=== PATIENT | male | born 1975 | race Caucasian/White ===

== ENCOUNTER → 2020-08-12 14:46 | Outpatient (CLI) | payer BC, SELFPAY ==
[2020-08-13 08:46] LABS: Basophils # 0.1 K/mm3 (0-0.2); Eosinophils # 0.4 K/mm3 (0.0-0.4); Eosinophils % 4.9 % (0.1-12.0); Hematocrit 39.3 % (42.0-52.0); Hemoglobin 11.7 g/dL (14.1-18.0); Lymphocytes # 1.4 K/mm3 (0.7-4.5); Lymphocytes % 15.7 % (10-50); Mean Corpuscular HGB Conc 29.7 g/dL (31.8-35.4); Mean Corpuscular Hemoglobin 28.3 pg (27.0-31.2); Mean Corpuscular Volume 95.4 fl (80-94); Mean Platelet Volume 8.8 fl (7.4-10.4); Monocytes # 0.3 K/mm3 (0.1-1.0); Monocytes % 3.3 % (1.7-9.3); Neutrophils # 6.6 K/mm3 (1.8-7.8); Neutrophils % 75.1 % (37.0-80.0); Platelet Count 284 K/mm3 (142-424); Red Blood Count 4.12 M/mm3 (4.60-6.20); Red Cell Distribution Width 16.3 % (11.5-17.5); White Blood Count 8.8 K/mm3 (4.8-10.8)
[2020-08-13 08:56] LABS: Chloride 103 mmol/L (98-107); Sodium 139 mmol/L (136-145)
[2020-08-13 08:57] LABS: Potassium 3.3 mmoL/L (3.5-5.1)
[2020-08-13 08:59] LABS: Alanine Aminotransferase 34 U/L (12-78); Albumin Level 3.7 g/dl (3.5-5.0); Alkaline Phosphatase 64 U/L (38-126); Anion Gap 13.3 mEq/L (5-15); Aspartate Amino Transferase 37 U/L (17-59); Bilirubin,Total 0.4 mg/dl (0.2-1.3); Blood Urea Nitrogen 13 mg/dl (9-20); Calcium 8.5 mg/dl (8.4-10.2); Carbon Dioxide 26 mmol/L (22.0-30.0); Cholesterol 164 mg/dl (140-200); Estimated Glomerular Filt Rate 41 ml/min (>60); GFR (African American) 50 ML/MIN (>60); Globulin 3.7 g/dL (1.3-3.2); Total Protein,Serum 7.4 g/dl (6.3-8.2); Triglycerides 106 mg/dl (30-150); VLDL Cholesterol 21 mg/dL (0-40)
[2020-08-13 09:00] LABS: Chol/HDL Ratio 2.4 (1-3.5); HDL Cholesterol 67 mg/dl (40-60)
[2020-08-13 09:11] LABS: Direct LDL Cholesterol 63.97 mg/dL (100-129)
[2020-08-13 09:14] LABS: Glucose 437 mg/dl (74-100)
[2020-08-13 09:30] LABS: Thyroid Stimulating Hormone 2.62 uIU/mL (0.465-4.68)
[2020-08-13 10:27] LABS: Hemoglobin A1C 7.7 % (4.0-6.0)
== END ==
PROVIDERS: Visit Provider Family Medicine
DX: R31.9 Hematuria, unspecified (principal); R40.20 Unspecified coma
CPT/HCPCS: 80053; 80061; 83036; 84443; 85025

== ENCOUNTER → 2020-10-14 17:57 | Outpatient (CLI) | payer BC, SELFPAY ==
[2020-10-14 18:26] LABS: Basophils % 0.3 % (0.1-2.0); Eosinophils # 0.1 K/mm3 (0.0-0.4); Eosinophils % 1.1 % (0.1-12.0); Hematocrit 34.4 % (42.0-52.0); Hemoglobin 11.3 g/dL (14.1-18.0); Lymphocytes # 1.5 K/mm3 (0.7-4.5); Lymphocytes % 15.3 % (10-50); Mean Corpuscular HGB Conc 32.9 g/dL (31.8-35.4); Mean Corpuscular Hemoglobin 28.4 pg (27.0-31.2); Mean Corpuscular Volume 86.6 fl (80-94); Mean Platelet Volume 7.3 fl (7.4-10.4); Monocytes # 0.3 K/mm3 (0.1-1.0); Neutrophils # 7.8 K/mm3 (1.8-7.8); Neutrophils % 80.3 % (37.0-80.0); Platelet Count 274 K/mm3 (142-424); Red Blood Count 3.97 M/mm3 (4.60-6.20); Red Cell Distribution Width 14.5 % (11.5-17.5); White Blood Count 9.8 K/mm3 (4.8-10.8)
[2020-10-14 18:36] LABS: Alanine Aminotransferase 35 U/L (12-78); Albumin Level 4.2 g/dl (3.5-5.0); Albumin/Globulin Ratio 1.4 (1.1-1.8); Alkaline Phosphatase 60 U/L (38-126); Anion Gap 16.1 mEq/L (5-15); Aspartate Amino Transferase 35 U/L (17-59); Bilirubin,Total 0.5 mg/dl (0.2-1.3); Blood Urea Nitrogen 19 mg/dl (9-20); Carbon Dioxide 23 mmol/L (22.0-30.0); Chloride 97 mmol/L (98-107); Estimated Glomerular Filt Rate 38 ml/min (>60); GFR (African American) 46 ML/MIN (>60); Globulin 3.1 g/dL (1.3-3.2); Potassium 4.1 mmoL/L (3.5-5.1); Sodium 132 mmol/L (136-145); Total Protein,Serum 7.3 g/dl (6.3-8.2)
[2020-10-14 18:51] LABS: T4 (Thyroxine) 12.9 ug/dl (5.53-11.0)
[2020-10-14 18:58] LABS: Glucose 425 mg/dl (74-100); Lipase < 10 U/L (23-300)
[2020-10-14 19:04] LABS: Thyroid Stimulating Hormone 1.42 uIU/mL (0.465-4.68)
[2020-10-14 19:23] LABS: Hemoglobin A1C 10.8 % (4.0-6.0)
== END ==
PROVIDERS: Visit Provider Family Medicine
DX: R10.9 Unspecified abdominal pain (principal); E11.9 Type 2 diabetes mellitus without complications; D64.9 Anemia, unspecified; Z79.4 Long term (current) use of insulin
CPT/HCPCS: 80053; 83036; 83690; 84436; 84443; 85025

== ENCOUNTER 2020-11-08 07:03 | Day surgery (SDC) | payer BC, SELFPAY ==
[2020-11-02 11:27] VITALS: BMI 12.7
[2020-11-08 08:16] VITALS: BP 137/91; PULSE 99; RESP 18; TEMP 36.6; O2SAT 100
[2020-11-08 08:23] LABS: Coronavirus 19 IgG Antibody Negative (Negative); Coronavirus 19 IgM Antibody Negative (Negative)
[2020-11-08 08:56] LABS: Glucose,Random 794 mg/dL (74-100)
--- NOTE | 2020-11-08 09:29 | SUR.PREOP ---
Patient Blood sugar @ 749. Labs drawn and patient taken to ED.
[2020-11-08 09:41] LABS: Acetone, Serum (Rapid) None Detected (None Detect)
[2020-11-08 10:05] LABS: Chloride 99 mmol/L (98-107); Potassium 3.7 mmoL/L (3.5-5.1); Sodium 133 mmol/L (136-145)
[2020-11-08 10:08] LABS: Alanine Aminotransferase 28 U/L (12-78); Albumin Level 3.4 g/dl (3.5-5.0); Albumin/Globulin Ratio 1.4 (1.1-1.8); Alkaline Phosphatase 60 U/L (38-126); Anion Gap 14.7 mEq/L (5-15); Aspartate Amino Transferase 14 U/L (17-59); Bilirubin,Total 0.5 mg/dl (0.2-1.3); Blood Urea Nitrogen 20 mg/dl (9-20); Carbon Dioxide 23 mmol/L (22.0-30.0); Creatinine Clearance Estimated 31 mL/min (50-200); Estimated Glomerular Filt Rate 41 ml/min (>60); GFR (African American) 49 ML/MIN (>60); Globulin 2.4 g/dL (1.3-3.2); Total Protein,Serum 5.8 g/dl (6.3-8.2)
[2020-11-08 10:18] LABS: Glucose 778 mg/dl (74-100)
== END 2020-11-08 09:22 | disposition other institution (70) ==
LOC: OUTP 07:04
PROVIDERS: PCP Family Medicine; Visit Provider Internal Medicine Gastroenterology
PROC: 0DJ08ZZ Inspection of Upper Intestinal Tract, Via Natural or Artificial Opening Endoscopic (ICD-10-PCS; CPT 43235; principal; 2020-11-08 09:30)
DX: Z53.8 Procedure and treatment not carried out for other reasons (principal); R73.9 Hyperglycemia, unspecified
CPT/HCPCS: 36415; 80053; 82009; 82947; 86328; U0003

== ENCOUNTER 2020-11-08 09:35 | Emergency (ER) | payer BC, SELFPAY ==
[2020-11-08 09:36] VITALS: BP 122/86; PULSE 96; RESP 18; TEMP 36.5; O2SAT 99; BMI 12.7
[2020-11-08 09:46] LABS: Basophils % 0.4 % (0.1-2.0); Eosinophils # 0.1 K/mm3 (0.0-0.4); Eosinophils % 0.8 % (0.1-12.0); Hematocrit 30.6 % (42.0-52.0); Hemoglobin 9.4 g/dL (14.1-18.0); Lymphocytes # 0.9 K/mm3 (0.7-4.5); Lymphocytes % 11.7 % (10-50); Mean Corpuscular HGB Conc 30.8 g/dL (31.8-35.4); Mean Corpuscular Hemoglobin 28.6 pg (27.0-31.2); Mean Corpuscular Volume 92.7 fl (80-94); Mean Platelet Volume 7.3 fl (7.4-10.4); Monocytes # 0.2 K/mm3 (0.1-1.0); Monocytes % 2.8 % (1.7-9.3); Neutrophils # 6.6 K/mm3 (1.8-7.8); Neutrophils % 84.3 % (37.0-80.0); Platelet Count 202 K/mm3 (142-424); White Blood Count 7.8 K/mm3 (4.8-10.8)
[2020-11-08 09:47] VITALS: BP 122/86; PULSE 93; RESP 20; O2SAT 100
[2020-11-08 09:59] LABS: VBG Base Excess -2.2 mmol/L (-2.4-2.3); VBG HCO3 24.2 mmol/L (23-30); VBG Oxygen Saturation 88.5 % (50-70); VBG PCO2 50.1 mmol/L (35-51); VBG PO2 53.1 mmol/L (28-40); VBG Total CO2 25.7 mmol/L (23-27)
--- NOTE | 2020-11-08 10:03 | HMH.EDGENADL ---
ED Disposition Clinical Impression: Hyperglycemia without ketosis Disposition: Home, Self-Care Condition on Discharge: Fair Instructions: DI for Hyperglycemia -- Adult Referrals: Ethan Beltran MD [Primary Care Provider] - 11/09/20 1:30 pm - Critical Care Critical Care Time: No Attestation: On 11/08/20, the high probability of a clinically significant, sudden or life threatening deterioration of the following system(s) required my full and direct attention, intervention and personal management. The time I documented below is in addition to time spent performing reported procedures but includes the following listed in this critical care notation. Medical Decision Making - Medical Records Medical records reviewed: Yes: I reviewed the patient's medical records. - Lazaro Inquiry Pt receiving controlled substance: No Vital Signs: 11/08/20 09:36 11/08/20 09:47 Temperature 97.7 F Temperature Source Oral Pulse Rate 93 H Pulse Rate [Right Radial] 96 H Respiratory Rate 18 20 Blood Pressure 122/86 Blood Pressure [Right Arm] 122/86 Blood Pressure Mean [Right Arm] 98 Blood Pressure Source [Right Arm] Automatic Cuff Blood Pressure Position [Right Arm] Sitting 02 Sat by Pulse Oximetry 99 100 Oxygen Delivery Method Room Air - Lab Data Lab Results 11/08/20 09:00: WBC 7.8, RBC 3.30 L, Hgb 9.4 L, Hct 30.6 L, MCV 92.7, MCH 28.6, MCHC 30.8 L, RDW 15.0, Plt Count 202, MPV 7.3 L, Neut % (Auto) 84.3 H, Lymph % (Auto) 11.7, [place] % (Auto) 2.8, Eos % (Auto) 0.8, Baso % (Auto) 0.4, Neut # (Auto) 6.6, Lymph # (Auto) 0.9, [place] # (Auto) 0.2, Eos # (Auto) 0.1, Baso # (Auto) 0.0 11/08/20 09:50: VBG pH 7.30 L, VBG pCO2 50.1, VBG pO2 53.1 H, VBG HCO3 24.2, VBG Total CO2 25.7, VBG O2 Saturation 88.5 H, VBG Base Excess -2.2 Result diagrams: 11/08/20 09:00 Orders (Tests/Meds): ED MEDICATIONS Discontinued Medications Generic Name Dose Route Start Last Admin Trade Name Starr PRN Reason Stop Dose Admin Sodium Chloride 1,000 mls @ 999 mls/hr 11/08/20 09:45 11/08/20 09:47 Sod Chlor 0.9% 1000ml Bag IV 11/08/20 10:45 999 mls/hr .Q1H1M SHERRELL Administration Insulin Human Lispro 10 unit 11/08/20 11:04 Humalog 100 Units/Ml 3ml Vial (Ssi) SQ 11/08/20 11:05 ONCE ONE ORDERS Category Date Time Status Venous Blood Gas Stat RT 11/08/20 09:37 Ordered - Reevaluation(s) Time: 11:12 Reevaluation #1: Patient does have significant hyperglycemia. Slightly lower pH, however no acetone. Gap within normal limits. We did provide multiple fluid boluses as well as insulin. I did explain to the patient that I am significantly concerned given his elevated blood sugar. I told the patient that if he would like to admit in the hospital for further treatment and evaluation. Patient is adamantly refusing this time. He is becoming hostile with the staff. He states that there is no chance he is staying in the hospital. I did explain to the patient that refusing to stay could result in significant poor medical outcomes including . The patient is alert and has full decision-making capability. He states that he understands this. He states he is leaving the hospital right now. I did call his primary care physician and arrange for emergent follow-up tomorrow to address his blood sugar. The patient has a appointment scheduled at 1330. Patient was notified about this. He was given strict return precautions. Verbalized understanding. Medical Decision Narrative: 45-year-old male presented to the emergency department with elevated blood sugar. Concern for DKA. Work-up initiated. Patient provided supplemental fluids. General Adult HPI - General Chief complaint: Hyper/Hypoglycemia Stated complaint: elevated glucose Time Seen by Provider: 11/08/20 10:03 Mode of Arrival: Carried Limitations: No Limitations Description of Symptoms (Recalled from ER Triage Doc. by RN): Pt was in pre-op today for and EGD and co
--- NOTE | 2020-11-08 11:09 | PC.NURSE ---
MAURICIO MONTOYA speaking with Dr. Carmona
--- NOTE | 2020-11-08 11:44 | PC.NURSE ---
DISCHARGED PATIENT VIA WHEELCHAIR. PT REPORTED HE HAD A RIDE OUT FRONT. AFTER WAITING 10 MINUTES FOR RIDE TO SHOW UP, PATIENT BECAME FRUSTRATED AND STATED HE WILL WAIT IN THE LOBBY. PATIENT IS AMBULATORY AND HAS A CELLPHONE
[2020-11-08 12:16] VITALS: BP 129/64; PULSE 78; RESP 18; TEMP 36.9; O2SAT 97
[2020-11-09 13:15] LABS: C-Peptide 1.7 ng/mL (1.1-4.4)
== END 2020-11-08 11:33 | disposition home or self-care (01) ==
PROVIDERS: Emergency Provider Emergency Medicine; PCP Family Medicine
DX: E11.65 Type 2 diabetes mellitus with hyperglycemia (principal); Z79.4 Long term (current) use of insulin; Z79.84 Long term (current) use of oral hypoglycemic drugs; D53.9 Nutritional anemia, unspecified; F41.9 Anxiety disorder, unspecified; Z88.0 Allergy status to penicillin
CPT/HCPCS: 82803; 84681; 85025; 99282

== ENCOUNTER 2020-11-12 14:09 | Observation (INO) | payer BC, SELFPAY ==
[2020-11-12] VITALS (11 sets, daily range): BP systolic 63–129; BP diastolic 48–76; PULSE 66–106; RESP 16–20; TEMP 36.6–36.8; O2SAT 92–100; BMI 13.9
--- NOTE | 2020-11-12 14:20 | PC.NURSE ---
Pt arrived to the floor at this time.
--- NOTE | 2020-11-12 14:54 | XR_ITS ---
PROCEDURE: XR CHEST PORTABLE CLINICAL HISTORY: cough COMPARISON: No exams were available for comparison FINDINGS: The cardiomediastinal silhouette and pulmonary vascularity are within normal limits. The lungs are clear without infiltrates, suspicious nodules, or pleural effusions. No acute bony abnormalities. Gas-filled bowel loops are present in the upper abdomen. IMPRESSION: No acute findings. Dictated by: Elliott Person MD 11/12/2020 17:39 Elliott Person MD in [place] 11/12/2020 17:39
--- NOTE | 2020-11-12 14:54 | CT_ITS ---
PROCEDURE: CT ABDOMEN PELVIS WO CON CLINICAL INDICATION: abd pain Epigastric pain, chronic pancreatitis COMPARISON: No exams were available for comparison TECHNIQUE: Axial images obtained with sagittal and coronal reformats. All CT scans at the facility use one or more dose reduction, viz: automated exposure control, ma/kV adjustment per patient size (including targeted exams where dose is matched to indication, i.e. head), or iterative reconstruction technique. FINDINGS: LOWER THORAX: COPD in the lung bases. Coronary artery calcifications. ABDOMEN & PELVIS: Evaluation of the abdomen and pelvis is extremely limited without IV and oral contrast and due to patient's lack of body fat. The gallbladder is distended. No radiopaque gallstones are apparent. The spleen, liver, and adrenal glands have an unremarkable unenhanced appearance. No obvious renal calculi or hydronephrosis. There is diffuse coarse calcification of the pancreas consistent with chronic pancreatitis. There gas-filled loops of small and large bowel. The appendix is not identified. There is a mild amount of liquid appearing stool within the colon which may be related to diarrhea disease or colitis. Multiple unopacified bowel loops in the abdomen or pelvis which could obscure or mimic pathology. If symptoms persist, consider repeat exam with IV and oral contrast.. There are fluid-filled loops of small bowel which blend imperceptibly together due to lack of IV and oral contrast and lack of body fat. There does appear to be hyperdense ascites at least in the left pericolic gutter. Some of this could be related to unopacified bowel. There are scattered small pockets of gas in the abdomen and pelvis which may be intraluminal however that is not definite. Would strongly recommend repeating exam with both IV and oral contrast for better delineation of the bowel loops. There are no previous exams available for comparison. There is degenerative disc disease at L4-5 with endplate sclerotic changes and a Schmorl's node along the inferior endplate of L4. There is diffuse arterial calcification. The urinary bladder wall is thickened with mild distention of the urinary bladder. IMPRESSION: 1. Exam is very limited due to lack of IV and oral contrast and sparsely of patient's body fat. There are multiple unopacified small bowel loops which blend imperceptibly together. There also scattered pockets of air in the abdomen and pelvis which may be intraluminal however, that is not definitive. Would strongly repeating exam with both IV and oral contrast for better bowel loop opacification and delineation of possible small bowel or large bowel pathology. 2. Air and liquid stool appearance of the large bowel suggesting diarrhea disease or colitis. 3. Chronic pancreatitis. 4. Hyperdense ascites. This is nonspecific and could be related to underlying infection/inflammation or even hemorrhage. 5. Thickening of the urinary bladder wall which could be due to underlying cystitis or chronic bladder outlet obstruction. Dictated by: Elliott Person MD 11/12/2020 16:39 Elliott Person MD in [place] 11/12/2020 16:39
--- NOTE | 2020-11-12 14:57 | HMH.HP ---
*Admission Date: 11/12/20 *Chief complaint: near syncope *History of present illness: 45 yr old male presented to pcp office today with c/o of abd pain, diarrhea, near syncope and decrease intake for 4-5 days. pt states every time he stands he becomes dizzy and feels he is going to pass out. Pt states he was scheduled for a colonoscopy and took the prep but since then he has had diarrhea and decrease intake. Pt states his colonoscopy was cancelled due to hyperglycemia. While in office pt glucose was 473. Pt was pale, lethargic with increase hr. Pt sent to hospital for admission. [facility] History I have reviewed the patient's past medical history: Yes Medical History: Reports:: Anxiety, Depression, Diabetes Mellitus Type 2 Denies:: Cancer, Diabetes Mellitus Type 1, Internal Pacemaker, MRSA, Seizures *Have you ever received a pneumonia vaccine?: No *Have you received a flu vaccine this season?: No Other Surgeries: Yes: Colonoscopy. No: Pacemaker Amputation: No Fractures: No - *Social History Smoking Status: Never smoker Alcohol Intake: former Alcohol Intake Frequency:: holidays/special occasions only Substance Use Type: heroin *Occupational Status:: unemployed Housing: apartment Household Members: none *Travel in the last 8 weeks: None - Psychiatric History Pschychiatric History:: Reports:: Anxiety, Depression Family Hx:: No significant family history Review of Systems - Review of Systems Review of systems:: pertinent systems reviewed and negative unless documented below - Constitutional Reports fatigue, Reports lack of energy, Reports malaise, Denies body ache(s), Denies fever(s) - Eyes Denies change in vision - ENT Denies change in voice - *Cardiovascular Denies chest pain with activity, Denies shortness of breath - *Respiratory Denies chest congestion - *Gastrointestinal Reports abdominal pain, Reports cramping, Reports loose stools, Reports nausea - *Genitourinary Denies urinary frequency - *Musculoskeletal Denies joint pain - Integumentary/Breasts Denies rash - *Neurologic Reports dizziness, Reports dizziness, Reports weakness - Psychiatric Denies anxiety - Endocrine Denies increased thirst - Hematologic/Lymphatic Denies easy bruising - Allergic/Immunologic Denies itchy eyes Meds Home Medications Medication Instructions Recorded Confirmed Type gabapentin 800 mg tablet 800 mg PO TID PRN #90 tab 10/14/20 11/12/20 Rx hydrocodone 5 mg-acetaminophen 325 1 tab PO BID PRN #14 tab 10/14/20 11/12/20 Rx mg tablet Insulin Glargine,Hum.rec.anlog 15 unit SQ DAILY 11/02/20 11/12/20 History [[place] Polkpen U-100] Insulin Lispro [Humalog] 1 unit SQ TID 11/02/20 11/12/20 History Omeprazole 40 mg PO DAILY 11/02/20 11/12/20 History Quetiapine Fumarate [Seroquel] 200 mg PO HS 11/02/20 11/12/20 History methIMAzole [Methimazole] 5 mg PO DAILY 11/02/20 11/12/20 History Allergies Allergy/AdvReac Type Severity Reaction Status Date / Time Penicillins Allergy Severe Hives Verified 11/02/20 11:06 Exam Vital signs and Labs for Last 24 Hours: Temp Pulse Resp BP Pulse Ox 98.2 F 66 20 115/68 100 11/12/20 14:13 11/12/20 14:13 11/12/20 14:13 11/12/20 14:13 11/12/20 14:13 I & O for Last 24 hours: Intake & Output 11/10/20 11/11/20 11/12/20 11/13/20 11:59 11:59 11:59 11:59 Weight 103 lb 1 oz - Constitutional mild distress, thin - *Routine HEENT Exam Head: Present: normocephalic Eye: Present: PERRL ENT: Present: mucous membranes moist - *Routine Neck Exam Present: supple. Absent: lymphadenopathy - *Routine Respiratory Exam Present: CTA bilaterally - *Routine Cardiovascular Exam Present: tachycardia - *Routine Abdominal Exam Present: soft, normoactive bowel sounds, tenderness. Absent: firm, rigid - *Routine Extremities Exam Present: normal capillary refill. Absent: cyanosis, clubbing, edema - *Routine Skin Exam Present: warm. Absent: r
[2020-11-12 15:04] LABS: Basophils % 0.3 % (0.1-2.0); Eosinophils # 0.1 K/mm3 (0.0-0.4); Eosinophils % 0.7 % (0.1-12.0); Hematocrit 29.8 % (42.0-52.0); Hemoglobin 9.5 g/dL (14.1-18.0); Lymphocytes # 1.4 K/mm3 (0.7-4.5); Lymphocytes % 11.6 % (10-50); Mean Corpuscular HGB Conc 31.8 g/dL (31.8-35.4); Mean Corpuscular Hemoglobin 28.9 pg (27.0-31.2); Mean Corpuscular Volume 90.8 fl (80-94); Mean Platelet Volume 7.6 fl (7.4-10.4); Monocytes # 0.3 K/mm3 (0.1-1.0); Monocytes % 2.6 % (1.7-9.3); Neutrophils # 10.5 K/mm3 (1.8-7.8); Neutrophils % 84.9 % (37.0-80.0); Platelet Count 233 K/mm3 (142-424); Red Blood Count 3.28 M/mm3 (4.60-6.20); Red Cell Distribution Width 14.6 % (11.5-17.5); White Blood Count 12.4 K/mm3 (4.8-10.8)
[2020-11-12 15:22] LABS: Chloride 97 mmol/L (98-107); Potassium 3.7 mmoL/L (3.5-5.1); Sodium 127 mmol/L (136-145)
[2020-11-12 15:25] LABS: Alanine Aminotransferase 49 U/L (12-78); Albumin Level 3.3 g/dl (3.5-5.0); Albumin/Globulin Ratio 1.3 (1.1-1.8); Alkaline Phosphatase 69 U/L (38-126); Anion Gap 13.7 mEq/L (5-15); Aspartate Amino Transferase 101 U/L (17-59); Bilirubin,Total 0.5 mg/dl (0.2-1.3); Blood Urea Nitrogen 13 mg/dl (9-20); Calcium 7.9 mg/dl (8.4-10.2); Carbon Dioxide 20 mmol/L (22.0-30.0); Chol/HDL Ratio 2.5 (1-3.5); Cholesterol 92 mg/dl (140-200); Creatinine Clearance Estimated 36 mL/min (50-200); Estimated Glomerular Filt Rate 44 ml/min (>60); GFR (African American) 53 ML/MIN (>60); Globulin 2.6 g/dL (1.3-3.2); HDL Cholesterol 37 mg/dl (40-60); Total Protein,Serum 5.9 g/dl (6.3-8.2); Triglycerides 92 mg/dl (30-150); VLDL Cholesterol 18 mg/dL (0-40)
--- NOTE | 2020-11-12 15:26 | PC.NURSE ---
pt wishes to be a DNR. Reviewed DNR status. DNR form signed and placed on chart. Ordered entered.
[2020-11-12 15:30] LABS: Lactic Acid 2.5 mmol/L (0.7-2.1)
[2020-11-12 15:30] LABS: Acetone, Serum (Rapid) None Detected (None Detect)
[2020-11-12 15:36] LABS: Direct LDL Cholesterol 31.24 mg/dL (100-129)
[2020-11-12 15:38] LABS: Glucose 661 mg/dl (74-100)
--- NOTE | 2020-11-12 15:39 | PC.NURSE ---
notified Dr. Beltran that glucose is 661
--- NOTE | 2020-11-12 15:47 | PC.NURSE ---
Received new orders from Dr. Beltran for the following: give 30 units Novolog insulin subcut NOW and to utilize high intensity SSI for ACHS checks. Also reviewed new lab results with Dr. Beltran: lactate 2.5, Cr 1.70, no acetone dectected, and WBC 12.4. No new orders received after discussing new lab results.
--- NOTE | 2020-11-12 16:13 | HMH.PHAVTE ---
[facility] Pharmacy VTE Monitoring - Patient Demographics Admission date: 11/12/20 Report Date: 11/12/20 Time: 16:13 Allergies/Adverse Reactions: Patient Allergies Penicillins Allergy (Severe, Verified 11/02/20 11:06) Hives Height: 1.83 m Weight: 46.748 kg - VTE Risk Labs: VTE Related Lab Results Hgb 9.5 g/dL (14.1-18.0) L 11/12/20 14:50 Hct 29.8 % (42.0-52.0) L 11/12/20 14:50 Plt Count 233 K/mm3 (142-424) 11/12/20 14:50 BUN 13 mg/dl (9-20) 11/12/20 14:50 Creatinine 1.70 mg/dl (0.66-1.25) H 11/12/20 14:50 Clinical Trial Participant: No - Prophylaxis VTE Prophylaxis Ordered?: Yes Types of VTE Prophylaxis: TEDS Knee High
--- NOTE | 2020-11-12 16:58 | PC.NURSE ---
Notified Dr. Beltran that FSBS is 537. No new orders @ this time as 30 units Novolog subcut was just given aprox 30min ago.
[2020-11-12 18:10] LABS: Glucose,Random 499 mg/dL (74-100)
--- NOTE | 2020-11-12 18:39 | PC.NURSE ---
paged Dr. Del Rosario @ [phone] regarding the following: glucose 499, BP 72/[address] Del Rosario ordered the following: TSH, Free T3, free T4, 1L NS bolus now, glargine 25units QHS, 30units Lispro NOW, and to restart DM low fat diet. Orders entered and/or faxed to [facility] pharmacy.
[2020-11-12 19:14] LABS: Free T4 (Free Thyroxine) 1.33 ng/dl (0.78-2.19)
[2020-11-12 19:17] LABS: Reflex Lactic Add Lactic Reflex
[2020-11-12 19:29] LABS: Thyroid Stimulating Hormone 1.27 uIU/mL (0.465-4.68)
[2020-11-12 19:58] LABS: Lactic Acid Follow Up (RFLX 1) 2.8 mmol/L (0.7-2.1)
[2020-11-12 20:39] LABS: Adenovirus F 40/41, stool Not Detected (NotDetected); Astrovirus Not Detected (NotDetected); Campylobacter Not Detected (NotDetected); Clostridium Difficile A/B, PCR Not Detected (NotDetected); Cryptosporidium Not Detected (NotDetected); Cyclospora Cayetanesis Not Detected (NotDetected); Entamoeba histolytica Not Detected (NotDetected); Enteroaggregative E coli Not Detected (NotDetected); Enteropathogenic E coli Not Detected (NotDetected); Enterotoxigenic E coli Not Detected (NotDetected); Giardia lamblia Not Detected (NotDetected); Norovirus Not Detected (NotDetected); Plesimonas Shigalloides, PCR Not Detected (NotDetected); Rotavirus A Not Detected (NotDetected); Salmonella, PCR Not Detected (NotDetected); Sapovirus Not Detected (NotDetected); Shiga-like toxin E coli Not Detected (NotDetected); Shigella Enterovasive E coli Not Detected (NotDetected); Vibrio Cholerae Not Detected (NotDetected); Vibrio, PCR Not Detected (NotDetected); Yersinia Entercolitica, PCR Not Detected (NotDetected)
[2020-11-12 20:48] LABS: Occult Blood,Stool Negative (Negative)
[2020-11-12 21:23] LABS: Microscopic, Urine URINE MICROSCOPIC (MICROSCOPIC)
[2020-11-12 21:28] LABS: Appearance,Urine SL CLOUDY (Clear); Bilirubin,Urine Negative (Negative); Blood, Urine TRACE-I (Negative); Color,Urine YELLOW (Yellow); Glucose,Urine (UA) 3+ (Negative); Ketones,Urine Negative (Negative); Leukocyte Esterase,Urine 1+ (Negative); Nitrate,Urine Negative (Negative); PH,Urine 5.5 (5.0-8.5); Protein,Urine Negative (Negative); Urobilinogen,Urine 0.2 EU/dl (0.2)
[2020-11-12 21:33] LABS: WBC,Urine 50-100 #/hpf (0-3); Yeast,Urine 2+ /lpf
[2020-11-12 21:36] LABS: Reflex Lactic (2 hrs) Add Lactic Reflex
[2020-11-12 21:48] LABS: Lactic Acid Follow up (RFLX 2) 2.2 mmol/L (0.7-2.1)
[2020-11-12 22:09] LABS: Glucose,Random 51 mg/dL (74-100)
[2020-11-12 22:43] LABS: POC Glucose,Bedside 537 (70-110)
[2020-11-12 22:43] LABS: POC Glucose,Bedside 422 (70-110)
[2020-11-12 22:44] LABS: POC Glucose,Bedside 91 (70-110)
--- NOTE | 2020-11-12 22:50 | PC.NURSE ---
Stool sample and urine was sent to lab. He ambulated to the bathroom with assist x1 and reported that he felt lightheaded and had to be helped with assist x3 back to bed. He received a fluid bolus. His glucose was 91 at bedtime. He called out later stating that he felt like his glucose was low. RRLO on glucometer. He was awake and alert. Given juice and carbohydrate and 1/2amp of D50. Glucose randomly checked after approx. 1 hour because he stated he felt funny and was noted to be 477. At this time he decided he wanted to take his 15units of Lantus that he had earlier refused.
[2020-11-13] VITALS: BP 93/61; PULSE 90; PULSE 92; RESP 14; TEMP 36.6; O2SAT 100
[2020-11-13 03:39] LABS: Barbiturates Screen,Urine Negative ng/ml (<200)
[2020-11-13 03:40] LABS: Benzodiazepines Screen,Urine Negative ng/ml (<200)
[2020-11-13 03:41] LABS: Cocaine Screen,Urine Negative ng/ml (<300); Methadone Screen,Urine Negative ng/ml (<300)
[2020-11-13 03:42] LABS: Cannabinoid Screen,Urine Negative ng/ml (<50)
[2020-11-13 03:43] LABS: Opiate Screen,Urine Negative ng/ml (<300); Phencyclidine Screen,Urine Negative ng/ml (<25)
[2020-11-13 03:45] LABS: Amphetamine/Metha Screen,Urine Positive ng/ml (<1000)
[2020-11-13 04:00] VITALS: BP 114/73; PULSE 86; PULSE 90; RESP 20; TEMP 36.4; O2SAT 100
[2020-11-13 05:15] VITALS: BMI 13.6
[2020-11-13 05:26] LABS: Anion Gap 15.8 mEq/L (5-15); Blood Urea Nitrogen 14 mg/dl (9-20); Carbon Dioxide 19 mmol/L (22.0-30.0); Chloride 104 mmol/L (98-107); Creatinine Clearance Estimated 37 mL/min (50-200); Estimated Glomerular Filt Rate 47 ml/min (>60); GFR (African American) 57 ML/MIN (>60); Potassium 3.8 mmoL/L (3.5-5.1); Sodium 135 mmol/L (136-145)
[2020-11-13 05:47] LABS: Glucose 48 mg/dl (74-100)
[2020-11-13 06:41] LABS: POC Glucose,Bedside 51 (70-110)
[2020-11-13 07:56] VITALS: TEMP 36.7
[2020-11-13 08:00] VITALS: BP 97/65; PULSE 80; PULSE 90; RESP 12; O2SAT 100
[2020-11-13 11:15] VITALS: BP 103/70; PULSE 84; RESP 18; TEMP 36.6; O2SAT 100
--- NOTE | 2020-11-13 12:16 | HMH.DCSUM ---
General - General Admission date:: 11/12/20 Discharge date: 11/13/20 HPI HPI: 45 yr old male presented to pcp office today with c/o of abd pain, diarrhea, near syncope and decrease intake for 4-5 days. pt states every time he stands he becomes dizzy and feels he is going to pass out. Pt states he was scheduled for a colonoscopy and took the prep but since then he has had diarrhea and decrease intake. Pt states his colonoscopy was cancelled due to hyperglycemia. While in office pt glucose was 473. Pt was pale, lethargic with increase hr. Pt sent to hospital for admission. Hospital Course Hospital Course: Patient was admitted for observation and hydration. He felt markedly better. No further diarrhea, no overt evidence of GI blood loss. Blood glucose was markedly labile, from the 420s to the 50s. He was eating well without problems. Has no abdominal pain, shortness of breath or chest pain. Has a history of anemia requiring transfusion. He was being set up for a colonoscopy and did not tolerate the prep. There was 9.5, his creatinine was 1.6. Stool studies were negative. Of note patient has a history of drug abuse. His urine screen did show amphetamines. He has a markedly low BMI, failure to thrive, acutely poor compliance with his diabetes regimen. These have been ongoing social problems. Objective Vital signs: Temp Pulse Resp BP Pulse Ox 97.9 F 84 18 103/70 L 100 11/13/20 11:15 11/13/20 11:15 11/13/20 11:15 11/13/20 11:15 11/13/20 11:15 thin, cooperative - *Routine HEENT Exam Head: Present: normocephalic Eye: Present: EOMI, PERRL ENT: Present: mucous membranes moist - *Routine Neck Exam Present: supple - *Routine Respiratory Exam Present: CTA bilaterally - *Routine Cardiovascular Exam Present: RRR - *Routine Abdominal Exam Present: soft, normoactive bowel sounds. Absent: tenderness, distended, guarding - *Routine Extremities Exam Absent: cyanosis, clubbing, edema, calf tenderness, extremity cold to touch - *Routine Skin Exam Present: warm. Absent: rash Results Labs on day of discharge: Labs from last 24 hours 11/13/20 11/13/20 11/12/20 05:00 04:56 22:36 WBC RBC Hgb Hct MCV MCH MCHC RDW Plt Count MPV Neut % (Auto) Lymph % (Auto) [place] % (Auto) Eos % (Auto) Baso % (Auto) Neut # (Auto) Lymph # (Auto) [place] # (Auto) Eos # (Auto) Baso # (Auto) Sodium 135 L Potassium 3.8 Chloride 104 Carbon Dioxide 19 L Anion Gap 15.8 H BUN 14 Creatinine 1.60 H Estimated Creat Clear 37 Estimated GFR 47 L Est GFR ( Amer) 57 L Glucose 48 L D POC Glucose 51 L 422 H* Random Glucose Lactate Calcium 8.0 L Total Bilirubin AST ALT Alkaline Phosphatase Total Protein Albumin Globulin Albumin/Globulin Ratio Triglycerides Cholesterol LDL Cholesterol Direct VLDL Cholesterol HDL Cholesterol Cholesterol/HDL Ratio TSH Free T4 Urine Color Urine Appearance Urine pH Ur Specific [place] Urine Protein Urine Glucose (UA) Urine Ketones Urine Blood Urine Nitrate Urine Bilirubin Urine Urobilinogen Ur Leukocyte Esterase Urine RBC Urine WBC Urine Yeast Stool Occult Blood Stl Aeromonas (PCR) Stl C. cayetanensis PCR Stool Rotavirus (PCR) Stl Adenov F 40/41 PCR Stool Astrovirus (PCR) Stool Campylobacter PCR Stl C.difficile Tox PCR Stool Cryptosporidium PCR Stl E.coli Shiga Tox PCR Stool E coli O157 PCR Stl Enterotoxigenic E PCR Stool EPEC (PCR) Stool EAEC (PCR) Stl E. histolytica PCR Stool Giardia Lamblia PCR Stool Salmonella PCR Stool Sapovirus (PCR) Stl P. shigelloides PCR Stl Shigella/EIEC PCR St Y.enterocolitica PCR Stool Vibrio (PCR) Stl Vibrio cholerae PCR Stl Norovirus GI/GII PCR U
[2020-11-13 13:10] LABS: POC Glucose,Bedside 202 (70-110)
[2020-11-14 08:41] LABS: Triiodothyronine (T3) Free 1.7 pg/mL (2.0-4.4)
== END 2020-11-13 14:44 | disposition home or self-care (01) ==
PROVIDERS: Family Medicine; Nurse Practitioner Family; Admitting Provider Family Medicine; PCP Family Medicine; Visit Provider Family Medicine
DX: E11.65 Type 2 diabetes mellitus with hyperglycemia (principal); R19.7 Diarrhea, unspecified; R55 Syncope and collapse; Z79.4 Long term (current) use of insulin; R62.7 Adult failure to thrive; Z88.0 Allergy status to penicillin; F41.9 Anxiety disorder, unspecified; F32.9 Major depressive disorder, single episode, unspecified; F19.11 Other psychoactive substance abuse, in remission; Z91.14 Patient's other noncompliance with medication regimen
CPT/HCPCS: 36415; 71045; 74176; 80048; 80053; 80061; 80305; 81001; 82009; 82272; 82947; 82962; 83605; 84439; 84443; 84481; 85025; 87040; 87086; 87088; 87186; 87507; G0328; G0378

== ENCOUNTER → 2020-11-18 18:09 | Outpatient (CLI) | payer BC, SELFPAY ==
[2020-11-18 18:43] LABS: Basophils % 0.3 % (0.1-2.0); Eosinophils # 0.1 K/mm3 (0.0-0.4); Eosinophils % 0.8 % (0.1-12.0); Hematocrit 27.6 % (42.0-52.0); Hemoglobin 9.5 g/dL (14.1-18.0); Lymphocytes # 1.6 K/mm3 (0.7-4.5); Lymphocytes % 13.4 % (10-50); Mean Corpuscular HGB Conc 34.2 g/dL (31.8-35.4); Mean Corpuscular Hemoglobin 29.9 pg (27.0-31.2); Mean Corpuscular Volume 87.4 fl (80-94); Mean Platelet Volume 7.7 fl (7.4-10.4); Monocytes # 0.3 K/mm3 (0.1-1.0); Monocytes % 2.7 % (1.7-9.3); Neutrophils # 9.8 K/mm3 (1.8-7.8); Neutrophils % 82.8 % (37.0-80.0); Platelet Count 269 K/mm3 (142-424); Red Blood Count 3.16 M/mm3 (4.60-6.20); Red Cell Distribution Width 15.5 % (11.5-17.5); White Blood Count 11.8 K/mm3 (4.8-10.8)
[2020-11-18 19:11] LABS: Alanine Aminotransferase 81 U/L (12-78); Albumin Level 3.4 g/dl (3.5-5.0); Albumin/Globulin Ratio 1.3 (1.1-1.8); Alkaline Phosphatase 76 U/L (38-126); Anion Gap 14.4 mEq/L (5-15); Aspartate Amino Transferase 63 U/L (17-59); Bilirubin,Total 0.4 mg/dl (0.2-1.3); Blood Urea Nitrogen 17 mg/dl (9-20); Calcium 8.2 mg/dl (8.4-10.2); Carbon Dioxide 17 mmol/L (22.0-30.0); Chloride 104 mmol/L (98-107); Estimated Glomerular Filt Rate 41 ml/min (>60); GFR (African American) 49 ML/MIN (>60); Globulin 2.6 g/dL (1.3-3.2); Glucose 200 mg/dl (74-100); Potassium 3.4 mmoL/L (3.5-5.1); Sodium 132 mmol/L (136-145)
[2020-11-18 19:19] LABS: Lipase < 10 U/L (23-300)
[2020-11-18 19:29] LABS: T4 (Thyroxine) 10.7 ug/dl (5.53-11.0)
[2020-11-18 19:43] LABS: Thyroid Stimulating Hormone 3.39 uIU/mL (0.465-4.68)
== END ==
PROVIDERS: Visit Provider Family Medicine
DX: R42 Dizziness and giddiness (principal); E11.9 Type 2 diabetes mellitus without complications; R19.7 Diarrhea, unspecified; Z79.4 Long term (current) use of insulin
CPT/HCPCS: 80053; 83690; 84436; 84443; 85025

== ENCOUNTER 2020-11-28 16:48 | Inpatient (IN) | payer BC, SELFPAY ==
[2020-11-28 16:50] VITALS: BP 84/59; PULSE 101; RESP 16; TEMP 36.6; O2SAT 98; BMI 12.7
--- NOTE | 2020-11-28 17:10 | ECG_ITS ---
APPROVED REPORT Exam: Resting ECG HR:98 bpm ECG Measurements Heart Rate 98 AXES UT 142 P 83 QRSd 78 QRS 94 QT 352 T 90 QTc 449 Conclusion Normal sinus rhythm Left atrial abnormality Late R wave progression Abnormal ECG Electronically signed by : Basilio Faye, 11/29/2020 18:05:42
--- NOTE | 2020-11-28 17:10 | CT_ITS ---
PROCEDURE: CT HEAD/BRAIN WO CON CLINICAL INDICATION: SYNCOPE COMPARISON: No exams were available for comparison TECHNIQUE: Axial images obtained. All CT scans at the facility use one or more dose reduction, viz: automated exposure control, ma/kV adjustment per patient size (including targeted exams where dose is matched to indication, i.e. head), or iterative reconstruction technique. FINDINGS: No midline shift, mass effect, intracranial hemorrhage, hydrocephalus, or extra-axial fluid collection is evident. The calvarium has an unremarkable appearance. No mastoid effusion. Mild mucosal thickening of the ethmoid sinuses. IMPRESSION: No acute intracranial finding Dictated by: Elliott Person MD 11/29/2020 07:02 Elliott Person MD in [place] 11/29/2020 07:02
--- NOTE | 2020-11-28 17:10 | XR_ITS ---
PROCEDURE: XR CHEST PORTABLE CLINICAL HISTORY: SYNCOPE COMPARISON: CR XR CHEST PORTABLE from 11/12/[address] ABDOMEN PELVIS WO CON from 11/28/2020 FINDINGS: The cardiomediastinal silhouette and pulmonary vascularity are within normal limits. The lungs are clear without infiltrates, suspicious nodules, or pleural effusions. Upper abdominal coarse calcifications are noted centrally consistent with chronic pancreatitis IMPRESSION: Negative chest. Chronic pancreatitis Dictated by: Elliott Person MD 11/29/2020 06:22 Elliott Person MD in [facility] 11/29/2020 06:22
--- NOTE | 2020-11-28 17:11 | CT_ITS ---
PROCEDURE: CT CERVICAL SPINE WO CON CLINICAL INDICATION: SYNCOPE Pain COMPARISON: No exams were available for comparison TECHNIQUE: Axial images obtained with sagittal and coronal reformats. All CT scans at the facility use one or more dose reduction, viz: automated exposure control, ma/kV adjustment per patient size (including targeted exams where dose is matched to indication, i.e. head), or iterative reconstruction technique. Axial spiral CT scanning performed of the cervical spine beginning at the base of the skull and continuing to the upper T-spine. 3-D multiplanar reconstruction with 3-D manipulation of volumetric data set in image rendering was completed by the radiologist and/or technologist with the supervision of the radiologist on independent workstation. FINDINGS: Normal alignment. No acute fracture or dislocation. Minimal bulging disc C3-C4. Minimal central disc protrusion Mild degenerative disc disease with mild bulging disc and right-sided uncovertebral hypertrophy C4-C5 Degenerative disc disease C5-C6 with endplate hypertrophic change and left-sided foraminal narrowing. Small posterior central disc protrusion C3-C4. Lung apices are clear. Air is present in the esophagus. Small lobular soft tissue density right upper paratracheal region possibly due to mucous. IMPRESSION: No acute fracture. Cervical spondylosis Dictated by: Elliott Person MD 11/29/2020 07:07 Elliott Person MD in [place] 11/29/2020 07:07
[2020-11-28 17:18] LABS: Basophils # 0.1 K/mm3 (0-0.2); Eosinophils # 0.1 K/mm3 (0.0-0.4); Eosinophils % 0.2 % (0.1-12.0); Hemoglobin 9.8 g/dL (14.1-18.0); Mean Platelet Volume 7.6 fl (7.4-10.4); Monocytes # 0.6 K/mm3 (0.1-1.0); Red Cell Distribution Width 15.7 % (11.5-17.5)
[2020-11-28 17:21] LABS: Basophils % 0.3 % (0.1-2.0); Lymphocytes # 1.3 K/mm3 (0.7-4.5); Lymphocytes % 4.3 % (10-50); Mean Corpuscular HGB Conc 33.7 g/dL (31.8-35.4); Mean Corpuscular Hemoglobin 29.7 pg (27.0-31.2); Mean Corpuscular Volume 88.3 fl (80-94); Monocytes % 2.1 % (1.7-9.3); Neutrophils # 28.5 K/mm3 (1.8-7.8); Neutrophils % 93.2 % (37.0-80.0); Platelet Count 134 K/mm3 (142-424); Red Blood Count 3.29 M/mm3 (4.60-6.20); White Blood Count 30.6 K/mm3 (4.8-10.8)
[2020-11-28 17:25] LABS: Chloride 98 mmol/L (98-107); Potassium 4.1 mmoL/L (3.5-5.1); Sodium 131 mmol/L (136-145)
[2020-11-28 17:26] LABS: MANUAL DIFFERENTIAL MANUAL DIFFERENTIAL (MANUAL DIFF)
[2020-11-28 17:28] LABS: Alanine Aminotransferase 73 U/L (12-78); Albumin Level 3.3 g/dl (3.5-5.0); Albumin/Globulin Ratio 1.1 (1.1-1.8); Alkaline Phosphatase 91 U/L (38-126); Anion Gap 14.1 mEq/L (5-15); Aspartate Amino Transferase 46 U/L (17-59); Bilirubin,Total 0.8 mg/dl (0.2-1.3); Blood Urea Nitrogen 65 mg/dl (9-20); Calcium 7.6 mg/dl (8.4-10.2); Carbon Dioxide 23 mmol/L (22.0-30.0); Creatinine Clearance Estimated 16 mL/min (50-200); Estimated Glomerular Filt Rate 19 ml/min (>60); GFR (African American) 23 ML/MIN (>60); Globulin 2.9 g/dL (1.3-3.2); Glucose 141 mg/dl (74-100); Total Protein,Serum 6.2 g/dl (6.3-8.2)
--- NOTE | 2020-11-28 17:29 | HMH.EDGENADL ---
ED Disposition Clinical Impression: Septic shock, Pyelonephritis, Syncope and collapse, Acute urinary retention, Dehydration, BOBBY (acute kidney injury), Cachexia Disposition: Admitted As Inpatient Condition on Discharge: Serious - Critical Care Critical Care Time: Yes Attestation: On 11/28/20, the high probability of a clinically significant, sudden or life threatening deterioration of the following system(s) required my full and direct attention, intervention and personal management. The time I documented below is in addition to time spent performing reported procedures but includes the following listed in this critical care notation. Total Critical Care Time: 35 Vital system(s) involved:: Shock (Septic) My critical care processes included: Assessment & monitoring of V/S, Initial and Re-exams, Data Review/Interpretation, Coordinating Care, Medication Orders and management, Documentation Medical Decision Making - Lazaro Inquiry Pt receiving controlled substance: No Vital Signs: 11/28/20 16:50 11/28/20 17:56 11/28/20 18:30 Temperature 98 F Temperature Source Oral Pulse Rate 94 H 91 H Pulse Rate [Radial] 101 H Respiratory Rate 16 16 14 Blood Pressure 106/75 L 99/70 L Blood Pressure [Right Arm] 84/59 L Blood Pressure Mean 81 76 Blood Pressure Mean [Right Arm] 67 Blood Pressure Position [Right Arm] Sitting 02 Sat by Pulse Oximetry 98 100 100 Oxygen Delivery Method Room Air - Lab Data Lab Results 11/28/20 17:09: WBC 30.6 H*, RBC 3.29 L, Hgb 9.8 L, Hct 29.0 L, MCV 88.3, MCH 29.7, MCHC 33.7, RDW 15.7, Plt Count 134 L, MPV 7.6, Neut % (Auto) 93.2 H, Lymph % (Auto) 4.3 L, [place] % (Auto) 2.1, Eos % (Auto) 0.2, Baso % (Auto) 0.3, Neut # (Auto) 28.5 H, Lymph # (Auto) 1.3, [place] # (Auto) 0.6, Eos # (Auto) 0.1, Baso # (Auto) 0.1, Total Counted 100, Neutrophils % (Manual) 93 H, Band Neutrophils % 2.0, Lymphocytes % (Manual) 4 L, Eosinophils % (Manual) 1, Platelet Estimate Slight decrease, RBC Morphology Normal 11/28/20 17:09: Sodium 131 L, Potassium 4.1, Chloride 98, Carbon Dioxide 23, Anion Gap 14.1, BUN 65 H, Creatinine 3.50 H, Estimated Creat Clear 16, Estimated GFR 19 L*, Est GFR ( Amer) 23 L, Glucose 141 H, Calcium 7.6 L, Total Bilirubin 0.8, AST 46, ALT 73, Alkaline Phosphatase 91, Troponin I < 0.01, Total Protein 6.2 L, Albumin 3.3 L, Globulin 2.9, Albumin/Globulin Ratio 1.1, Amylase < 30 L 11/28/20 17:09: Lipase < 10 L 11/28/20 17:09: ESR 80 H 11/28/20 17:09: C-Reactive Protein 214.1 H, Procalcitonin 319 H 11/28/20 18:03: Chlamy pneumoniae PCR Not detected, Adenovirus (PCR) Not detected, B. pertussis DNA (PCR) Not detected, Coronavirus OC43 (PCR) Not detected, Coronavirus HKU1 (PCR) Not detected, Coronavirus 229E (PCR) Not detected, SARS-CoV-2 (PCR) Not detected, Coronavirus NL63 (PCR) Not detected, Human Metapneumovir PCR Not detected, Influenza A (H1) PCR Not detected, Influ A (H1N1/09) PCR Not detected, Influenza A (H3) PCR Not detected, Influenza Type A (PCR) Not detected, Influenza Type B (PCR) Not detected, M. pneumoniae (PCR) Not detected, Parainfluenza 1 (PCR) Not detected, Parainfluenza 2 (PCR) Not detected, Parainfluenza 3 (PCR) Not detected, Parainfluenza 4 (PCR) Not detected, RSV (PCR) Not detected, Entero/Rhino (PCR) Not detected 11/28/20 18:05: Lactate 1.1 11/28/20 18:25: Urine Color Yellow, Urine Appearance Sl cloudy, Urine pH 6.0, Ur Specific [place] 1.020, Urine Protein Trace, Urine Glucose (UA) Negative, Urine Ketones Negative, Urine Blood 2+, Urine Nitrate Negative, Urine Bilirubin Negative, Urine Urobilinogen 0.2, Ur Leukocyte Esterase 2+ A, Urine RBC Occasional, Urine WBC Tntc, Ur Squamous Epith Cells 5-10, Urine Bacteria 3+ Result diagrams: 11/28/20 17:09 11/28/20 17:09 Orders (Tests/Meds): ED MEDICATIONS Generic Name Dose Route Start Last Admin Trade Name Freq PRN Reason Stop Dose Admin Lactated Ringer's 1,000 mls @ 999 mls/hr 11/28/20 17:15 11/28/20 17:15 Lactated Ringer
[2020-11-28 17:31] LABS: Amylase < 30 U/L (30-110); Lipase < 10 U/L (23-300)
--- NOTE | 2020-11-28 17:33 | PC.NURSE ---
notified ER of critical creatinine.
[2020-11-28 17:34] LABS: Eosinophils % 1 % (0-3); Lymphocytes % 4 % (10-50); Neutrophils % 93 % (42-76); Platelet Estimate Slight Decrease; RBC Morphology Normal; Total Cells Counted 100
--- NOTE | 2020-11-28 17:34 | CT_ITS ---
PROCEDURE: CT ABDOMEN PELVIS WO CON CLINICAL INDICATION: LUQ PAIN COMPARISON: No exams were available for comparison TECHNIQUE: Axial images obtained with sagittal and coronal reformats. All CT scans at the facility use one or more dose reduction, viz: automated exposure control, ma/kV adjustment per patient size (including targeted exams where dose is matched to indication, i.e. head), or iterative reconstruction technique. FINDINGS: LOWER THORAX: No acute finding ABDOMEN & PELVIS: The liver, spleen, adrenal glands have an unremarkable appearance. The gallbladder is distended. Diffuse coarse calcifications involve the pancreas consistent with chronic pancreatitis. No renal or ureteral calculi parent. No hydronephrosis. Mild thickening of the gastric wall possibly due to nondistention. Multiple fluid-filled loops of small bowel slightly distended with some scattered air-fluid levels. There is a mild amount of retained colonic feces. The appendix is not clearly delineated. Multiple unopacified bowel loops in the abdomen or pelvis which could obscure or mimic pathology. If symptoms persist, consider repeat exam with IV and oral contrast.. Urinary bladder is distended with mild thickening of the urinary bladder wall. There is diffuse vascular calcification. There is mild sclerosis of the subcortical region of the femoral heads on both sides consistent with avascular necrosis. IMPRESSION: 1. Chronic pancreatitis. 2. Gallbladder distension. 3. Mildly distended fluid-filled loops of small bowel with scattered air-fluid levels which may be due to ileus or partial small bowel obstruction. 4. Limited exam without IV and oral contrast. Multiple unopacified bowel loops in the abdomen or pelvis which could obscure or mimic pathology. If symptoms persist, consider repeat exam with IV and oral contrast. 5. Avascular necrosis of the femoral heads 6. Urinary bladder distension with mild bladder wall thickening Dictated by: Elliott Person MD 11/29/2020 08:19 Elliott Person MD in [place] 11/29/2020 08:19
[2020-11-28 17:48] LABS: C-Reactive Protein 214.1 mg/L (0-4)
[2020-11-28 17:56] VITALS: BP 106/75; PULSE 94; RESP 16; O2SAT 100
[2020-11-28 17:58] LABS: Troponin I < 0.01 ng/ml (0.00-0.034)
[2020-11-28 18:05] LABS: Erythrocyte Sedimentation Rate 80 mm/hr (0-15)
--- NOTE | 2020-11-28 18:13 | PC.NURSE ---
per lab pts procalcitonin level is greater than 100, states it is rerunning at this time (per Elizabeth). Notified ER
[2020-11-28 18:17] LABS: Adenovirus,PCR Not Detected (NotDetected); Bordetella Pertussis Not Detected (NotDetected); Chlamydophila Pneumoniae, PCR Not Detected (NotDetected); Coronavirus 19, PCR Not Detected (NotDetected); Coronavirus 229E Not Detected (NotDetected); Coronavirus NL63 Not Detected (NotDetected); Coronavirus OC43 Not Detected (NotDetected); Coronovirus HKU1,PCR Not Detected (NotDetected); Human Metapneumovirus Not Detected (NotDetected); Influenza A, PCR Not Detected (NotDetected); Influenza AH1, 2009 Not Detected (NotDetected); Influenza AH1, PCR Not Detected (NotDetected); Influenza AH3,PCR Not Detected (NotDetected); Influenza B, PCR Not Detected (NotDetected); Mycoplasma Pneumoniae, PCR Not Detected (NotDetected); Parainfluenza 1, PCR Not Detected (NotDetected); Parainfluenza 2, PCR Not Detected (NotDetected); Parainfluenza 3, PCR Not Detected (NotDetected); Parainfluenza 4, PCR Not Detected (NotDetected); Respiratory Syncytial Virus Not Detected (NotDetected); Rhinovirus/Enterovirus Not Detected (NotDetected)
[2020-11-28 18:23] LABS: Lactic Acid 1.1 mmol/L (0.7-2.1)
[2020-11-28 18:30] VITALS: BP 99/70; PULSE 91; RESP 14; O2SAT 100
[2020-11-28 18:32] LABS: Microscopic, Urine URINE MICROSCOPIC (MICROSCOPIC)
[2020-11-28 18:33] LABS: Appearance,Urine SL CLOUDY (Clear); Bilirubin,Urine Negative (Negative); Blood, Urine 2+ (Negative); Color,Urine YELLOW (Yellow); Glucose,Urine (UA) Negative (Negative); Ketones,Urine Negative (Negative); Leukocyte Esterase,Urine 2+ (Negative); Nitrate,Urine Negative (Negative); Protein,Urine TRACE (Negative); Urobilinogen,Urine 0.2 EU/dl (0.2)
[2020-11-28 18:36] LABS: Procalcitonin 319 ng/mL (0.0-2.0)
[2020-11-28 18:47] LABS: Bacteria,Urine 3+ /lpf; RBC,Urine Occasional #/hpf (0-3); WBC,Urine TNTC #/hpf (0-3)
--- NOTE | 2020-11-28 18:51 | PC.NURSE ---
dr eder valerio
--- NOTE | 2020-11-28 20:14 | HMH.HP ---
*Admission Date: 11/28/20 *Chief complaint: weakness *History of present illness: this patient presented to the ed TO ED PER PVT CAR WITH C/O SYNCOPAL EPISODE YESTERDAY, GENERALIZED WEAKNESS, NECK PAIN, NAUSEA, VOMITING, DIARRHEA, LUQ ABD PAIN. PT STATES HE HAS HAD NAUSEA, VOMITING, DIARRHEA SINCE PREPPING FOR COLONOSCOPY EARLIER THIS MONTH. PT STATES UNABLE TO PREFORM TEST DUE TO ELEVATED BLOOD SUGAR. PT ALERT, EMACIATED. HX OF PANCREATITIS States he got dehydrated and passed out and hit his head. He says he is dehydrated because he has had the rounds since 11/08/2020. He said he was prepping for colonoscopy and has had diarrhea ever since. Some intermittent vomiting. Poor appetite, not eating or drinking much of anything. Last urine output was yesterday. Says he was trying to go to the bathroom when he passed out today. Hit the back of his head. Has pain there and in his neck from the injury. He had no head or neck pain until he fell. He has chronic abdominal pain due to chronic pancreatitis. Denies other pain. Denies cough, fever, shortness of breath, rhinorrhea, sore throat, dysuria, rash. He has diabetes and has been using his insulin as usual. pt was admitted with ivf and abx - [facility] History I have reviewed the patient's past medical history: Yes Medical History: Reports:: Anxiety, Depression, Diabetes Mellitus Type 2 Denies:: Cancer, Diabetes Mellitus Type 1, Internal Pacemaker, MRSA, Seizures *Have you ever received a pneumonia vaccine?: No *Have you received a flu vaccine this season?: Yes Other Surgeries: Yes: Colonoscopy. No: Pacemaker Amputation: No Fractures: No - *Social History Smoking Status: Former smoker Tobacco Type: smokeless tobacco # Packs/Day (cigarettes): 0 Alcohol Intake: never Alcohol Intake Frequency:: holidays/special occasions only Substance Use Type: heroin *Occupational Status:: unemployed Housing: apartment Household Members: none *Travel in the last 8 weeks: None - Psychiatric History Pschychiatric History:: Reports:: Anxiety, Depression Family Hx:: Unable to obtain Review of Systems - Review of Systems Review of systems:: pertinent systems reviewed and negative unless documented below - Constitutional Reports weakness, Reports weight loss, Denies fever(s) - Eyes Denies change in vision - ENT Denies sore throat - *Cardiovascular Denies chest pain at rest - *Respiratory Denies cough - *Gastrointestinal Reports abdominal pain, Reports nausea, Reports vomiting - *Genitourinary Reports difficulty urinating - *Musculoskeletal Reports joint pain - Integumentary/Breasts Denies rash - *Neurologic Reports headache(s) (Occipital pain due to injury), Reports weakness, Denies abnormal speech, Denies seizure-like activity, Denies localized weakness - Psychiatric Reports difficulty concentrating Meds Home Medications Medication Instructions Recorded Confirmed Type gabapentin 800 mg tablet 800 mg PO TID PRN #90 tab 10/14/20 11/28/20 Rx Insulin Glargine,Hum.rec.anlog 15 unit SQ HS 11/02/20 11/29/20 History [Basaglar Kwikpen U-100] Insulin Lispro [Humalog] 0 unit SQ TID 11/02/20 11/29/20 History Omeprazole 40 mg PO DAILY 11/02/20 11/28/20 History Quetiapine Fumarate [Seroquel] 200 mg PO HS 11/02/20 11/28/20 History methIMAzole [Methimazole] 5 mg PO DAILY 11/02/20 11/28/20 History metroNIDAZOLE [Metronidazole] 500 mg PO TID 11/28/20 11/28/20 History Cholestyramine (with Sugar) 4 gm PO BID PRN 11/29/20 11/29/20 History [Cholestyramine Packet] Allergies Allergy/AdvReac Type Severity Reaction Status Date / Time Penicillins Allergy Severe Hives Verified 11/18/20 13:13 Exam Vital signs and Labs for Last 24 Hours: Temp Pulse Resp BP Pulse Ox 98 F 91 H 14 99/70 L 100 11/28/20 16:50 11/28/20 18:30 11/28/20 18:30 11/28/20 18:30 11/28/20 18:30 Laboratory Results - last 24 hr 11/28/20 17:09: WBC 30.6 H*, RBC 3.29 L, Hgb 9.8 L, Hct 29.0 L, MCV
[2020-11-28 20:17] VITALS: BP 91/65; PULSE 91; RESP 19; TEMP 36.6; O2SAT 99
[2020-11-28 20:37] VITALS: BP 97/67; PULSE 92; RESP 18; TEMP 36.5; O2SAT 99; BMI 12.6
--- NOTE | 2020-11-28 20:37 | PC.NURSE ---
PT ARRIVED TO FLOOR VIA STRETCHER FROM ED W/STAFF AT 2036
[2020-11-28 20:49] LABS: Troponin I < 0.01 ng/ml (0.00-0.034)
[2020-11-28 20:58] VITALS: PULSE 90
[2020-11-28 21:21] LABS: POC Glucose,Bedside 147 (70-110)
[2020-11-29] VITALS (28 sets, daily range): BP systolic 82–117; BP diastolic 57–85; PULSE 81–102; RESP 14–18; TEMP 36.3–36.8; O2SAT 98–100; BMI 12.4; BMI 12.2
--- NOTE | 2020-11-29 03:37 | PC.NURSE ---
Addendum entered by Shivani Sinclair RN 11/29/20 05:43: PT HAS HAD LOW BP T/O SHIFT-PT HAS BEEN ASYMPTOMATIC-EATING SNACKS AND TALKING WITH STAFF. Original Note: A&OX4. PT TOLERATING RA T/O SHIFT. PT IS VERY FRAIL AND QUIET, DOESN'T SAY MUCH T/O SHIFT. PT IS VERY WEAK. PT HAS HAD NO C/O PAIN THUS FAR. PT HAS NOT HAD BM THUS FAR. PT USING URINAL TO VOID. PT REQUESTED NIGHT TIME MED, ADMINISTERED PER MD MATOS. IV FLUIDS GIVEN T/O SHIFT. PT EATING MULTIPLE SNACKS. NO OTHER C/O THUS FAR, VSS WILL CONTINUE TO MONITOR.
[2020-11-29 05:34] LABS: POC Glucose,Bedside 188 (70-110)
[2020-11-29 06:40] LABS: Chloride 103 mmol/L (98-107); Potassium 4.3 mmoL/L (3.5-5.1); Sodium 131 mmol/L (136-145)
[2020-11-29 06:43] LABS: Anion Gap 12.3 mEq/L (5-15); Blood Urea Nitrogen 60 mg/dl (9-20); Carbon Dioxide 20 mmol/L (22.0-30.0); Creatinine Clearance Estimated 20 mL/min (50-200); Estimated Glomerular Filt Rate 25 ml/min (>60); GFR (African American) 30 ML/MIN (>60); Glucose 138 mg/dl (74-100)
[2020-11-29 07:10] LABS: Basophils % 0.2 % (0.1-2.0); Eosinophils # 0.1 K/mm3 (0.0-0.4); Eosinophils % 0.7 % (0.1-12.0); Lymphocytes # 1.2 K/mm3 (0.7-4.5); Lymphocytes % 9.7 % (10-50); Mean Corpuscular HGB Conc 33.4 g/dL (31.8-35.4); Mean Corpuscular Hemoglobin 29.6 pg (27.0-31.2); Mean Corpuscular Volume 88.8 fl (80-94); Mean Platelet Volume 7.9 fl (7.4-10.4); Monocytes # 0.2 K/mm3 (0.1-1.0); Monocytes % 1.8 % (1.7-9.3); Neutrophils # 10.5 K/mm3 (1.8-7.8); Neutrophils % 87.5 % (37.0-80.0); Platelet Count 82 K/mm3 (142-424); Red Blood Count 2.41 M/mm3 (4.60-6.20); Red Cell Distribution Width 15.7 % (11.5-17.5)
[2020-11-29 07:19] LABS: Hematocrit 21.4 % (42.0-52.0)
[2020-11-29 07:20] LABS: Hemoglobin 7.2 g/dL (14.1-18.0); MANUAL DIFFERENTIAL MANUAL DIFFERENTIAL (MANUAL DIFF)
--- NOTE | 2020-11-29 09:00 | P.CONPHA_ITS ---
[facility] VTE Monitoring - Patient Demographics Admission date: 11/28/20 Report Date: 11/29/20 Time: 09:00 Allergies/Adverse Reactions: Patient Allergies Penicillins Allergy (Severe, Verified 11/18/20 13:13) Hives Height: 1.85 m Weight: 42.439 kg Patient Problems: Current Active Problems Septic shock (Acute) Pyelonephritis (Acute) Syncope and collapse (Acute) Acute urinary retention (Acute) Dehydration (Acute) BOBBY (acute kidney injury) (Acute) Cachexia (Acute) - VTE Risk Labs: VTE Related Lab Results Hgb 7.2 g/dL (14.1-18.0) L* D 11/29/20 05:55 Hct 21.4 % (42.0-52.0) L* 11/29/20 05:55 Plt Count 82 K/mm3 (142-424) L D 11/29/20 05:55 BUN 60 mg/dl (9-20) H 11/29/20 05:55 Creatinine 2.80 mg/dl (0.66-1.25) H 11/29/20 05:55 Estimated Creat Clear 20 mL/min (50-200) 11/29/20 05:55 - Prophylaxis VTE Prophylaxis Ordered?: Yes Types of VTE Prophylaxis: TEDS Knee High Location of Applied Device: Bilateral Lower Extremeties
--- NOTE | 2020-11-29 09:23 | HMH.ACPN2 ---
Internal Medicine - PN: Subj *Date: 11/29/20 *Time: 09:23 Interval history: pt laying in bed states he feels weak Exam Vital signs and Labs for Last 24 Hours: Temp Pulse Resp BP Pulse Ox 98.2 F 102 H 16 90/68 L 99 11/29/20 08:00 11/29/20 08:00 11/29/20 08:00 11/29/20 08:00 11/29/20 08:00 Laboratory Results - last 24 hr 11/28/20 17:09: WBC 30.6 H*, RBC 3.29 L, Hgb 9.8 L, Hct 29.0 L, MCV 88.3, MCH 29.7, MCHC 33.7, RDW 15.7, Plt Count 134 L, MPV 7.6, Neut % (Auto) 93.2 H, Lymph % (Auto) 4.3 L, [place] % (Auto) 2.1, Eos % (Auto) 0.2, Baso % (Auto) 0.3, Neut # (Auto) 28.5 H, Lymph # (Auto) 1.3, [place] # (Auto) 0.6, Eos # (Auto) 0.1, Baso # (Auto) 0.1, Total Counted 100, Neutrophils % (Manual) 93 H, Band Neutrophils % 2.0, Lymphocytes % (Manual) 4 L, Eosinophils % (Manual) 1, Platelet Estimate Slight decrease, RBC Morphology Normal 11/28/20 17:09: Sodium 131 L, Potassium 4.1, Chloride 98, Carbon Dioxide 23, Anion Gap 14.1, BUN 65 H, Creatinine 3.50 H, Estimated Creat Clear 16, Estimated GFR 19 L*, Est GFR ( Amer) 23 L, Glucose 141 H, Calcium 7.6 L, Total Bilirubin 0.8, AST 46, ALT 73, Alkaline Phosphatase 91, Troponin I < 0.01, Total Protein 6.2 L, Albumin 3.3 L, Globulin 2.9, Albumin/Globulin Ratio 1.1, Amylase < 30 L 11/28/20 17:09: Lipase < 10 L 11/28/20 17:09: ESR 80 H 11/28/20 17:09: C-Reactive Protein 214.1 H, Procalcitonin 319 H 11/28/20 18:03: Chlamy pneumoniae PCR Not detected, Adenovirus (PCR) Not detected, B. pertussis DNA (PCR) Not detected, Coronavirus OC43 (PCR) Not detected, Coronavirus HKU1 (PCR) Not detected, Coronavirus 229E (PCR) Not detected, SARS-CoV-2 (PCR) Not detected, Coronavirus NL63 (PCR) Not detected, Human Metapneumovir PCR Not detected, Influenza A (H1) PCR Not detected, Influ A (H1N1/09) PCR Not detected, Influenza A (H3) PCR Not detected, Influenza Type A (PCR) Not detected, Influenza Type B (PCR) Not detected, M. pneumoniae (PCR) Not detected, Parainfluenza 1 (PCR) Not detected, Parainfluenza 2 (PCR) Not detected, Parainfluenza 3 (PCR) Not detected, Parainfluenza 4 (PCR) Not detected, RSV (PCR) Not detected, Entero/Rhino (PCR) Not detected 11/28/20 18:05: Lactate 1.1 11/28/20 18:25: Urine Color Yellow, Urine Appearance Sl cloudy, Urine pH 6.0, Ur Specific [place] 1.020, Urine Protein Trace, Urine Glucose (UA) Negative, Urine Ketones Negative, Urine Blood 2+, Urine Nitrate Negative, Urine Bilirubin Negative, Urine Urobilinogen 0.2, Ur Leukocyte Esterase 2+ A, Urine RBC Occasional, Urine WBC Tntc, Ur Squamous Epith Cells 5-10, Urine Bacteria 3+ 11/28/20 20:09: Troponin I < 0.01 11/28/20 21:10: POC Glucose 147 H 11/29/20 05:04: POC Glucose 188 H 11/29/20 05:55: WBC 12.0 H D, RBC 2.41 L D, Hgb 7.2 L* D, Hct 21.4 L*, MCV 88.8, MCH 29.6, MCHC 33.4, RDW 15.7, Plt Count 82 L D, MPV 7.9, Neut % (Auto) 87.5 H, Lymph % (Auto) 9.7 L, [place] % (Auto) 1.8, Eos % (Auto) 0.7, Baso % (Auto) 0.2, Neut # (Auto) 10.5 H, Lymph # (Auto) 1.2, [place] # (Auto) 0.2, Eos # (Auto) 0.1, Baso # (Auto) 0.0 11/29/20 05:55: Sodium 131 L, Potassium 4.3, Chloride 103, Carbon Dioxide 20 L, Anion Gap 12.3, BUN 60 H, Creatinine 2.80 H, Estimated Creat Clear 20, Estimated GFR 25 L, Est GFR ( Amer) 30 L D, Glucose 138 H, Calcium 7.0 L I & O for Last 24 hours: Intake & Output 11/26/20 11/27/20 11/28/20 11/29/20 11:59 11:59 11:59 11:59 Intake Total 2529 / 2529 Output Total 925 / 925 Balance 1604 / 1604 Weight 93 lb 9 oz - Constitutional no acute distress, thin - *Routine HEENT Exam Head: Present: normocephalic Eye: Present: PERRL ENT: Present: mucous membranes moist - *Routine Neck Exam Present: supple. Absent: lymphadenopathy - *Routine Respiratory Exam Present: CTA bilaterally - *Routine Cardiovascular Exam Present: RRR - *Routine Abdominal Exam Present: soft, normoactive bowel sounds. Absent: tenderness - *Routine Extremities Exam Present: normal capillary refill. Absent: cyanosis, clubbing, alexey
[2020-11-29 10:44] LABS: Anisocytosis 1+; Hypochromasia 1+; Lymphocytes % 5 % (10-50); Monocytes % 2 % (2-9); Neutrophils % 93 % (42-76); Platelet Estimate Slight Decrease; Total Cells Counted 100
[2020-11-29 11:26] LABS: Procalcitonin 179 ng/mL (0.0-2.0)
[2020-11-29 11:30] LABS: POC Glucose,Bedside 108 (70-110)
--- NOTE | 2020-11-29 14:10 | HMH.PHAINT ---
HOME MEDICATIONS RECONCILED FROM EXTERNAL FILL HISTORY AND PATIENT INTERVIEW.
--- NOTE | 2020-11-29 16:20 | PC.NURSE ---
Pt has been pleasant and cooperative this shift. A&O X4. Pt has complained of neck and back pain today and requested some medicine stronger than Tylenol. Morphine order received per Dr. Carmona. Pt reports favorable results with Morphine. Pt has received 2 units of PRBC's this shift. Lungs CTA. No edema noted. Skin is C/D/I. F/C is patent and draining clear, yellow urine without issue. No BM this shift. Appetite is fair and pt eats about 50% of all meals. FSBS results have been 108 and 145. 20 G peripheral IV in the RT upper arm is patent and infusing LR @ 150 ML/HR. 20 G peripheral IV in the LT AC is patent and SL. VSS. Call light within reach. Will continue to monitor.
[2020-11-29 16:33] LABS: POC Glucose,Bedside 145 (70-110)
[2020-11-29 18:07] LABS: Hematocrit 30.2 % (42.0-52.0)
[2020-11-29 18:53] LABS: Hemoglobin 10.6 g/dL (14.1-18.0)
[2020-11-29 19:52] LABS: POC Glucose,Bedside 191 (70-110)
[2020-11-30] VITALS (10 sets, daily range): BP systolic 102–140; BP diastolic 70–97; PULSE 70–100; RESP 16–19; TEMP 36.4–36.8; O2SAT 98–99; BMI 13.6
--- NOTE | 2020-11-30 02:43 | PC.NURSE ---
Pt A&O x4 and has slept well through the night. No acute changes overnight. Pt has requested pain meds x2, given per mar with favorable results. Lungs CTA, on room air. Bowel sounds x4, abd soft and nontender. No BM this shift. Skin CDI. Obrien draining clear yellow urine. IV patent, LR @ 150. VSS, call light in reach, no concerns at this time.
[2020-11-30 05:55] LABS: POC Glucose,Bedside 106 (70-110)
[2020-11-30 07:50] LABS: Chloride 106 mmol/L (98-107); Potassium 4.8 mmoL/L (3.5-5.1); Sodium 134 mmol/L (136-145)
[2020-11-30 07:53] LABS: Anion Gap 9.8 mEq/L (5-15); Blood Urea Nitrogen 43 mg/dl (9-20); Calcium 7.5 mg/dl (8.4-10.2); Carbon Dioxide 23 mmol/L (22.0-30.0); Creatinine Clearance Estimated 31 mL/min (50-200); Estimated Glomerular Filt Rate 36 ml/min (>60); GFR (African American) 44 ML/MIN (>60); Glucose 104 mg/dl (74-100)
[2020-11-30 08:32] LABS: Procalcitonin 79.4 ng/mL (0.0-2.0)
[2020-11-30 08:59] LABS: Basophils % 0.4 % (0.1-2.0); Eosinophils # 0.1 K/mm3 (0.0-0.4); Eosinophils % 1.4 % (0.1-12.0); Hematocrit 30.5 % (42.0-52.0); Hemoglobin 10.3 g/dL (14.1-18.0); Lymphocytes # 1.1 K/mm3 (0.7-4.5); Lymphocytes % 13.8 % (10-50); Mean Corpuscular HGB Conc 33.8 g/dL (31.8-35.4); Mean Corpuscular Hemoglobin 28.9 pg (27.0-31.2); Mean Corpuscular Volume 85.4 fl (80-94); Mean Platelet Volume 7.6 fl (7.4-10.4); Monocytes # 0.2 K/mm3 (0.1-1.0); Neutrophils # 6.2 K/mm3 (1.8-7.8); Neutrophils % 81.3 % (37.0-80.0); Platelet Count 72 K/mm3 (142-424); Red Blood Count 3.58 M/mm3 (4.60-6.20); Red Cell Distribution Width 17.2 % (11.5-17.5); White Blood Count 7.6 K/mm3 (4.8-10.8)
--- NOTE | 2020-11-30 09:20 | HMH.ACPN2 ---
Internal Medicine - PN: Subj *Date: 11/30/20 *Time: 12:37 Interval history: 45-year-old male patient sitting up in bed tolerating breakfast without any difficulties. Reports he is feeling better, instructed to be up to chair for all meals and out of bed during the day. He did receive 2 units of packed blood cells yesterday this a.m. H/H 10.3/30.5, BUN/creatinine down 43/2.0. We will DC Camille today Exam Vital signs and Labs for Last 24 Hours: Temp Pulse Resp BP Pulse Ox 97.6 F 100 H 19 117/84 98 11/30/20 07:38 11/30/20 07:45 11/30/20 07:45 11/30/20 07:38 11/30/20 07:45 Laboratory Results - last 24 hr 11/28/20 18:25: Urine Color Yellow, Urine Appearance Sl cloudy, Urine pH 6.0, Ur Specific [place] 1.020, Urine Protein Trace, Urine Glucose (UA) Negative, Urine Ketones Negative, Urine Blood 2+, Urine Nitrate Negative, Urine Bilirubin Negative, Urine Urobilinogen 0.2, Ur Leukocyte Esterase 2+ A, Urine RBC Occasional, Urine WBC Tntc, Ur Squamous Epith Cells 5-10, Urine Bacteria 3+ 11/29/20 05:55: Total Counted 100, Neutrophils % (Manual) 93 H, Lymphocytes % (Manual) 5 L, Monocytes % (Manual) 2, Platelet Estimate Slight decrease, RBC Morphology Not Reportable, Hypochromasia 1+, Anisocytosis 1+ 11/29/20 05:55: Blood Type Confirm A Positive 11/29/20 10:14: Procalcitonin 179 H 11/29/20 10:14: Blood Type A Positive, Antibody Screen Negative, Crossmatch (AHG) See Detail 11/29/20 11:22: POC Glucose 108 11/29/20 15:55: POC Glucose 145 H 11/29/20 18:00: Hgb 10.6 L D, Hct 30.2 L 11/29/20 19:43: POC Glucose 191 H 11/30/20 05:34: POC Glucose 106 11/30/20 07:23: Sodium 134 L, Potassium 4.8, Chloride 106, Carbon Dioxide 23, Anion Gap 9.8, BUN 43 H D, Creatinine 2.00 H D, Estimated Creat Clear 31, Estimated GFR 36 L, Est GFR ( Amer) 44 L D, Glucose 104 H, Calcium 7.5 L 11/30/20 07:23: Procalcitonin 79.4 H 11/30/20 07:23: WBC 7.6 D, RBC 3.58 L D, Hgb 10.3 L, Hct 30.5 L, MCV 85.4, MCH 28.9, MCHC 33.8, RDW 17.2, Plt Count 72 L, MPV 7.6, Neut % (Auto) 81.3 H, Lymph % (Auto) 13.8, [place] % (Auto) 3.0, Eos % (Auto) 1.4, Baso % (Auto) 0.4, Neut # (Auto) 6.2, Lymph # (Auto) 1.1, [place] # (Auto) 0.2, Eos # (Auto) 0.1, Baso # (Auto) 0.0 I & O for Last 24 hours: Intake & Output 11/27/20 11/28/20 11/29/20 11/30/20 23:59 23:59 23:59 23:59 Intake Total 1200 / 1200 3679 / 3679 360 / 360 Output Total 700 / 700 225 / 975 1350 / 1350 Balance 500 / 500 3454 / 2704 -990 / -990 Weight 93 lb 7 oz 92 lb 9.506 oz 103 lb 2 oz Microbiology Reports for the Last 24 Hours: Microbiology 11/28/20 18:25 Urine,Catheterized Urine Culture - Final Citrobacter braakii - Constitutional no acute distress, cachectic - *Routine HEENT Exam Head: Present: normocephalic Eye: Present: EOMI ENT: Present: mucous membranes moist - *Routine Neck Exam Present: supple, trachea midline. Absent: tracheal deviation - *Routine Respiratory Exam Present: CTA bilaterally. Absent: accessory muscle use - *Routine Cardiovascular Exam Present: RRR - *Routine Abdominal Exam Present: soft, normoactive bowel sounds. Absent: tenderness, firm - *Routine Extremities Exam Present: cyanosis, full ROM, pulses intact. Absent: clubbing, edema, calf tenderness - *Routine Skin Exam Present: intact, dry, warm. Absent: cyanosis, erythema - *Routine Neurological Exam Present: alert, oriented X3. Absent: motor deficit, pronator drift - Routine Psychiatric Exam Present: normal affect, normal thought process. Absent: auditory hallucinations, visual hallucinations Assessment and Plan (1) BOBBY (acute kidney injury) Status: Acute Category: Medical Code(s): N17.9 - Acute kidney failure, unspecified (2) Acute urinary retention Status: Acute Category: Medical Code(s): R33.8 - Other retention of urine (3) Cachexia Status: Acute Category: Medical Code(s): R64 - Cachexia (4) Malnutrition Status: Acute Quali
[2020-11-30 12:16] LABS: POC Glucose,Bedside 179 (70-110)
[2020-11-30 16:59] LABS: POC Glucose,Bedside 116 (70-110)
--- NOTE | 2020-11-30 17:40 | PC.NURSE ---
Pt has been pleasant and cooperative this shift. A&O X4. Pt has complained of neck and back pain today and has received Morphine per MAR with favorable results. Lungs CTA. No edema noted. Skin is C/D/I. F/C DC'd this AM. Pt has been incontinent since and a brief is in place. No BM this shift. Pt refused to get OOB today. Appetite is fair and pt eats about 50% of all meals. FSBS results have been 179 and 116. 20 G peripheral IV in the RT upper arm is patent and infusing LR @ 150 ML/HR. 20 G peripheral IV in the LT AC is patent and SL. VSS. Call light within reach. Will continue to monitor.
[2020-11-30 21:34] LABS: POC Glucose,Bedside 151 (70-110)
[2020-12-01] VITALS: BP 105/74; PULSE 76; PULSE 90; RESP 17; TEMP 36.7; O2SAT 93
--- NOTE | 2020-12-01 03:20 | PC.NURSE ---
PT A&Ox4 and has slept well through the night. Pt has c/o pain x2, morphine given per mar with desired effects. Pt walked to BR with standby assist. PT refused to get to the chair this shift. Pt has one episode of nausea, zofran was given with favorable results. Skin CDI, no edema noted. IV patent, LR @ 150. VSS, call light in reach, no concerns at this time.
[2020-12-01 03:47] VITALS: BP 117/81; PULSE 84; RESP 15; TEMP 36.8; O2SAT 98
[2020-12-01 04:00] VITALS: PULSE 90
[2020-12-01 05:29] VITALS: BMI 14.7
[2020-12-01 05:32] LABS: POC Glucose,Bedside 222 (70-110)
[2020-12-01 07:36] LABS: Basophils # 0.1 K/mm3 (0-0.2); Basophils % 0.8 % (0.1-2.0); Eosinophils # 0.1 K/mm3 (0.0-0.4); Hematocrit 33.1 % (42.0-52.0); Hemoglobin 10.7 g/dL (14.1-18.0); Lymphocytes # 1.2 K/mm3 (0.7-4.5); Lymphocytes % 18.6 % (10-50); Mean Corpuscular HGB Conc 32.5 g/dL (31.8-35.4); Mean Corpuscular Hemoglobin 28.5 pg (27.0-31.2); Mean Corpuscular Volume 87.7 fl (80-94); Mean Platelet Volume 8.3 fl (7.4-10.4); Monocytes # 0.2 K/mm3 (0.1-1.0); Monocytes % 2.3 % (1.7-9.3); Neutrophils # 5.1 K/mm3 (1.8-7.8); Neutrophils % 76.3 % (37.0-80.0); Platelet Count 81 K/mm3 (142-424); Red Blood Count 3.77 M/mm3 (4.60-6.20); Red Cell Distribution Width 16.9 % (11.5-17.5); White Blood Count 6.7 K/mm3 (4.8-10.8)
[2020-12-01 07:41] LABS: Chloride 106 mmol/L (98-107); Potassium 4.9 mmoL/L (3.5-5.1); Sodium 135 mmol/L (136-145)
[2020-12-01 07:44] LABS: Anion Gap 8.9 mEq/L (5-15); Blood Urea Nitrogen 32 mg/dl (9-20); Calcium 7.6 mg/dl (8.4-10.2); Carbon Dioxide 25 mmol/L (22.0-30.0); Creatinine Clearance Estimated 37 mL/min (50-200); Estimated Glomerular Filt Rate 41 ml/min (>60); GFR (African American) 49 ML/MIN (>60); Glucose 115 mg/dl (74-100)
[2020-12-01 08:00] VITALS: BP 103/75; PULSE 100; PULSE 110; RESP 16; TEMP 36.6; O2SAT 98
--- NOTE | 2020-12-01 08:43 | HMH.DCSUM ---
General - General Admission date:: 11/28/20 Discharge date: 12/01/20 HPI HPI: this patient presented to the ed TO ED PER PVT CAR WITH C/O SYNCOPAL EPISODE YESTERDAY, GENERALIZED WEAKNESS, NECK PAIN, NAUSEA, VOMITING, DIARRHEA, LUQ ABD PAIN. PT STATES HE HAS HAD NAUSEA, VOMITING, DIARRHEA SINCE PREPPING FOR COLONOSCOPY EARLIER THIS MONTH. PT STATES UNABLE TO PREFORM TEST DUE TO ELEVATED BLOOD SUGAR. PT ALERT, EMACIATED. HX OF PANCREATITIS States he got dehydrated and passed out and hit his head. He says he is dehydrated because he has had the rounds since 11/08/2020. He said he was prepping for colonoscopy and has had diarrhea ever since. Some intermittent vomiting. Poor appetite, not eating or drinking much of anything. Last urine output was yesterday. Says he was trying to go to the bathroom when he passed out today. Hit the back of his head. Has pain there and in his neck from the injury. He had no head or neck pain until he fell. He has chronic abdominal pain due to chronic pancreatitis. Denies other pain. Denies cough, fever, shortness of breath, rhinorrhea, sore throat, dysuria, rash. He has diabetes and has been using his insulin as usual. pt was admitted with ivf and abx - Hospital Course Hospital Course: this patient presented to the ed TO ED PER PVT CAR WITH C/O SYNCOPAL EPISODE YESTERDAY, GENERALIZED WEAKNESS, NECK PAIN, NAUSEA, VOMITING, DIARRHEA, LUQ ABD PAIN. PT STATES HE HAS HAD NAUSEA, VOMITING, DIARRHEA SINCE PREPPING FOR COLONOSCOPY EARLIER THIS MONTH. PT STATES UNABLE TO PREFORM TEST DUE TO ELEVATED BLOOD SUGAR. PT ALERT, EMACIATED. HX OF PANCREATITIS States he got dehydrated and passed out and hit his head. He says he is dehydrated because he has had the rounds since 11/08/2020. He said he was prepping for colonoscopy and has had diarrhea ever since. Some intermittent vomiting. Poor appetite, not eating or drinking much of anything. Last urine output was yesterday. Says he was trying to go to the bathroom when he passed out today. Hit the back of his head. Has pain there and in his neck from the injury. He had no head or neck pain until he fell. He has chronic abdominal pain due to chronic pancreatitis. Denies other pain. Denies cough, fever, shortness of breath, rhinorrhea, sore throat, dysuria, rash. He has diabetes and has been using his insulin as usual. pt was admitted with ivf and abx - 11/29/20 CXR: FINDINGS: The cardiomediastinal silhouette and pulmonary vascularity are within normal limits. The lungs are clear without infiltrates, suspicious nodules, or pleural effusions. Upper abdominal coarse calcifications are noted centrally consistent with chronic pancreatitis IMPRESSION: Negative chest. Chronic pancreatitis Dictated by: Raza 11/29/[address]: FINDINGS: No midline shift, mass effect, intracranial hemorrhage, hydrocephalus, or extra-axial fluid collection is evident. The calvarium has an unremarkable appearance. No mastoid effusion. Mild mucosal thickening of the ethmoid sinuses. IMPRESSION: No acute intracranial finding Dictated by: Raza 11/29/[address]: FINDINGS: Normal alignment. No acute fracture or dislocation. Minimal bulging disc C3-C4. Minimal central disc protrusion Mild degenerative disc disease with mild bulging disc and right-sided uncovertebral hypertrophy C4-C5 Degenerative disc disease C5-C6 with endplate hypertrophic change and left-sided foraminal narrowing. Small posterior central disc protrusion C3-C4. Lung apices are clear. Air is present in the esophagus. Small lobular soft tissue density right upper paratracheal region possibly due to mucous. IMPRESSION: No acute fracture. Cervical spondylosis Dictated by: Raza 11/29/20 Abd/Pelvis CT: FINDINGS: LOWER THORAX: No acute finding ABDOMEN & PELVIS: The liver, spleen, adrenal glands have an unremarkable appearance. The gallbladder is distended. Diffuse coars
[2020-12-01 09:00] LABS: Procalcitonin 35.8 ng/mL (0.0-2.0)
--- NOTE | 2020-12-01 09:11 | HMH.PHAINT ---
DISCHARGE COUNSELING COMPLETED. PATIENT ADVISED TO START TAKING LEVAQUIN ON SUNDAY
--- NOTE | 2020-12-01 09:19 | PC.NURSE ---
PATIENT WILL NEED A WALKER RATHER THAN A CANE DUE TO GAIT/MOBILITY ISSUES.
--- NOTE | 2020-12-01 09:22 | SW/DCPLANNER ---
Addendum entered by Elizabeth Cruz 12/01/20 12:53: I have contacted Idalia and she has stated that she will transport this patient today. Addendum entered by Elizabeth Cruz 12/01/20 09:46: Katie Rincon has stated that rolling walker will be delivered today. Original Note: I have spoke with this patient regarding discharge plans. Patient stated that he intends on returning home today. Patient stated that he has everything he needs at home but will need a rolling walker. Patient information/order has been faxed to [facility] for a rolling walker. I will follow up with Sergey once patient information is reviewed. Patient stated that his family member (Idalia) will transport him home. Patient is medically stable for discharge today.
--- NOTE | 2020-12-01 10:42 | HMH.OTEV ---
OT Inpatient Evaluation Rehab OT IP Evaluation Start: 12/01/20 09:00 Freq: ONCE Status: Complete Protocol: Document 12/01/20 10:33 KATHE (Rec: 12/01/20 10:42 KATHE [id number]) Rehab OT IP Assessment Subjective History *Admission Date: 11/28/20 *Chief complaint: weakness *History of present illness: this patient presented to the ed TO ED PER PVT CAR WITH C/O SYNCOPAL EPISODE YESTERDAY, GENERALIZED WEAKNESS, NECK PAIN, NAUSEA, VOMITING, DIARRHEA, LUQ ABD PAIN. PT STATES HE HAS HAD NAUSEA, VOMITING, DIARRHEA SINCE PREPPING FOR COLONOSCOPY EARLIER THIS MONTH. PT STATES UNABLE TO PREFORM TEST DUE TO ELEVATED BLOOD SUGAR. PT ALERT , EMACIATED. HX OF PANCREATITIS States he got dehydrated and passed out and hit his head. He says he is dehydrated because he has had the rounds since 11/08/2020. He said he was prepping for colonoscopy and has had diarrhea ever since. Some intermittent vomiting. Poor appetite, not eating or drinking much of anything. Last urine output was yesterday. Says he was trying to go to the bathroom when he passed out today. Hit the back of his head. Has pain there and in his neck from the injury. He had no head or neck pain until he fell. He has chronic abdominal pain due to chronic pancreatitis. Denies other pain. Denies cough, fever, shortness of breath, rhinorrhea, sore throat, dysuria, rash. He has diabetes and has been using his insulin as usual. pt was admitted with ivf and abx - Subjective I just laid down. I'm going
--- NOTE | 2020-12-01 11:40 | HMH.PTEV ---
Physical Therapy Evaluation Rehab PT IP Evaluation Start: 12/01/20 08:59 Freq: .once Status: Active Protocol: Document 12/01/20 10:15 SOPHIE (Rec: 12/01/20 11:40 PHORLIZETH [id number]) Subjective/History History History 45 yowm adm to [facility] after fall at home hitting his head. Pt found to be anemic and improved after blood transfusion. He reports living alone, not steps to enter the home, and is independent with all ADLs prior to adm. Subjective Subjective Pt c/o pain in his neck, but does not rate at this time. Rehab PT IP Eval Objective Appearance Patient Behavior Appropriate Patient Orientation Person,Place,Time Difficulty following instructions none Speech Pattern Clear Ambulation Patient Able to Ambulate Yes Ambulation Observation IP General Gait Pattern Observation No Deviations/Normal Ambulation Distance (feet) 20 Ambulation Assistive Device Rolling Walker Ambulation Ability Independent Balance Ability to Arise Able, uses arms to help Sitting Balance Steady, safe Standing Balance Narrow stance w/o support Dynamic Sitting Balance Ability Normal Dynamic Standing Balance Ability Normal Transfers Bed Transfer Ability Independent Chair Transfer Ability Independent Sit to Stand Bed Transfer Ability Independent Sit to Stand Chair Transfer Ability Independent ROM All Extremities PT ROM Status WFL MMT All Extremities PT MMT WFL Rehab PT IP prob,goals,plan Problems Date of Evaluation: 12/01/20 Discharge Plan PT Discharge Plan Pt is at baseline for all mobility, no inpatient therapy needs at this time and is appropriate to return home once medically stable. G -code Required No Eval Complexity Eval Charge Codes 25897 - Moderate Complexity PHYSICIAN CERTIFICATION: I certify the specified therapy services for Matthew Bean are required, authorized, and reviewed every 30 days.
[2020-12-01 12:00] VITALS: BP 116/83; PULSE 101; PULSE 90; RESP 22; TEMP 36.7; O2SAT 97
[2020-12-01 12:44] LABS: POC Glucose,Bedside 144 (70-110)
== END 2020-12-01 15:16 | disposition home or self-care (01) | DRG 871 ==
LOC: ER 19:38 → 2ND 22:39
PROVIDERS: Emergency Medicine; Nurse Practitioner Family; Admitting Provider Internal Medicine Adolescent Medicine; Emergency Provider Emergency Medicine; PCP Family Medicine; Visit Provider Family Medicine
DX: A41.9 Sepsis, unspecified organism (principal); E43 Unspecified severe protein-calorie malnutrition; N10 Acute pyelonephritis; N17.9 Acute kidney failure, unspecified; Z68.1 Body mass index [BMI] 19.9 or less, adult; K86.1 Other chronic pancreatitis; D64.9 Anemia, unspecified; Z87.891 Personal history of nicotine dependence; Z79.4 Long term (current) use of insulin; Z88.0 Allergy status to penicillin; B96.89 Other specified bacterial agents as the cause of diseases classified elsewhere; E86.0 Dehydration; R33.9 Retention of urine, unspecified; R65.20 Severe sepsis without septic shock
CPT/HCPCS: 36415; 70450; 71045; 72125; 74176; 80048; 80053; 81001; 82150; 82962; 83605; 83690; 84145; 84484; 85007; 85014; 85018; 85025; 85651; 86140; 86850; 87040; 87077; 87086; 87088; 87186; 87581; 87633; 87798; 93005; 96365; 96375; 97162; 97165; 99283; J0692; J1956; J2405; P9016

== ENCOUNTER → 2021-01-21 13:24 | Outpatient (CLI) | payer BC, SELFPAY ==
[2021-01-21 14:38] LABS: Basophils # 0.1 K/mm3 (0-0.2); Basophils % 0.8 % (0.1-2.0); Eosinophils # 0.2 K/mm3 (0.0-0.4); Eosinophils % 1.5 % (0.1-12.0); Hematocrit 31.1 % (42.0-52.0); Hemoglobin 10.5 g/dL (14.1-18.0); Lymphocytes # 3.3 K/mm3 (0.7-4.5); Lymphocytes % 34.5 % (10-50); Mean Corpuscular HGB Conc 33.8 g/dL (31.8-35.4); Mean Corpuscular Hemoglobin 29.7 pg (27.0-31.2); Mean Corpuscular Volume 87.8 fl (80-94); Mean Platelet Volume 7.6 fl (7.4-10.4); Monocytes # 0.3 K/mm3 (0.1-1.0); Monocytes % 3.5 % (1.7-9.3); Neutrophils # 5.8 K/mm3 (1.8-7.8); Neutrophils % 59.7 % (37.0-80.0); Platelet Count 274 K/mm3 (142-424); Red Blood Count 3.54 M/mm3 (4.60-6.20); Red Cell Distribution Width 16.9 % (11.5-17.5); White Blood Count 9.7 K/mm3 (4.8-10.8)
[2021-01-21 14:55] LABS: Alanine Aminotransferase 49 U/L (12-78); Albumin Level 4.1 g/dl (3.5-5.0); Albumin/Globulin Ratio 1.4 (1.1-1.8); Alkaline Phosphatase 61 U/L (38-126); Anion Gap 12.8 mEq/L (5-15); Aspartate Amino Transferase 27 U/L (17-59); Bilirubin,Total 0.5 mg/dl (0.2-1.3); Blood Urea Nitrogen 29 mg/dl (9-20); Calcium 8.8 mg/dl (8.4-10.2); Carbon Dioxide 26 mmol/L (22.0-30.0); Chloride 104 mmol/L (98-107); Estimated Glomerular Filt Rate 36 ml/min (>60); GFR (African American) 44 ML/MIN (>60); Globulin 2.9 g/dL (1.3-3.2); Glucose 51 mg/dl (74-100); Potassium 3.8 mmoL/L (3.5-5.1); Sodium 139 mmol/L (136-145)
[2021-01-21 15:12] LABS: Hemoglobin A1C 7.4 % (4.0-6.0)
[2021-01-21 15:26] LABS: Thyroid Stimulating Hormone 1.53 uIU/mL (0.465-4.68)
== END ==
PROVIDERS: Visit Provider Family Medicine
DX: E11.9 Type 2 diabetes mellitus without complications (principal); Z79.4 Long term (current) use of insulin
CPT/HCPCS: 80053; 83036; 84443; 85025

== ENCOUNTER 2021-02-09 16:26 | Observation (INO) | payer MEDICAID, SELFPAY ==
[2021-02-09] VITALS (7 sets, daily range): BP systolic 108–151; BP diastolic 76–98; PULSE 84–98; RESP 12–18; TEMP 36.6–36.9; O2SAT 97–100; BMI 12.7; BMI 15.3
--- NOTE | 2021-02-09 16:19 | ECG_ITS ---
APPROVED REPORT Exam: Resting ECG HR:96 bpm ECG Measurements Heart Rate 96 AXES VT 142 P 55 QRSd 74 QRS 65 QT 326 T 74 QTc 411 Conclusion Normal sinus rhythm Left atrial abnormality with late R wave progression Abnormal ECG Electronically signed by : Basilio Faye, 02/10/2021 17:43:07
--- NOTE | 2021-02-09 16:33 | XR_ITS ---
PROCEDURE INFORMATION: Exam: XR Chest Exam date and time: 02/09/2021 4:33 PM Age: 45 years old Clinical indication: Screening exam; Other screening; Patient HX: Fall TECHNIQUE: Imaging protocol: XR of the chest. Views: 1 view. Portable AP upright exam 5:12 p.m. COMPARISON: CR XR CHEST PORTABLE 11/28/2020 5:44 PM FINDINGS: Lungs: Mild hypoventilation/low lung volumes. Slightly increased bilateral infrahilar interstitial prominence compared with the prior exam is likely artifact from shallow inspiration, rather than true interstitial lung disease. No focal consolidation. Pleural spaces: Unremarkable. No significant pleural effusion. No pneumothorax. Heart/Mediastinum: The cardiac silhouette is normal. Bones/joints: No definite fracture in the chest. Soft tissues: Pancreatic soft tissue calcifications seen on the prior exam are not as well demonstrated on today's study, but are faintly visible. IMPRESSION: 1. Slight hypoventilation/low lung volumes on today's exam. 2. No acute findings. 3. Additional nonemergency and chronic findings as above.
--- NOTE | 2021-02-09 16:33 | XR_ITS ---
PROCEDURE INFORMATION: Exam: XR Sacrum and Coccyx, 2 or More Views Exam date and time: 02/09/2021 4:33 PM Age: 45 years old Clinical indication: Injury or trauma; Fall; Blunt trauma (contusions or hematomas); Injury date: 02/09/2021; Injury details: Patient fell back while standing in kitchen TECHNIQUE: Imaging protocol: XR of the sacrum and coccyx, 2 or more views. COMPARISON: CT ABDOMEN PELVIS WO CON 11/28/2020 5:34 PM FINDINGS: Bones/joints: Lateral series 4 shows cortical irregularity along the anterior surface of the 4th and 5th sacral segments, which is not seen on a prior CT from 11/28/2020, worrisome for minimally displaced fracture. No definite sacral fracture is confirmed on the frontal view, but the sacrum is poorly seen on frontal radiographs due to overlying bowel content and soft tissue shadows. If further imaging is warranted by the clinical findings or course, CT may help for more accurate evaluation. Sacroiliac joints are unremarkable. Soft tissues: No acute findings. Colon is moderately distended with fecal material and bowel gas, slightly limiting the exam. IMPRESSION: 1. Findings worrisome for possible hairline, nondisplaced fractures of 4th and 5th sacral segments, as detailed above. 2. Limited exam, due to overlying bowel content and soft tissue shadows.
[2021-02-09 16:54] LABS: Microscopic, Urine URINE MICROSCOPIC (MICROSCOPIC)
--- NOTE | 2021-02-09 16:54 | PC.NURSE ---
Pt present with patel already in place. Urine sent from patel.
[2021-02-09 16:55] LABS: Appearance,Urine CLEAR (Clear); Bilirubin,Urine Negative (Negative); Blood, Urine 2+ (Negative); Color,Urine YELLOW (Yellow); Glucose,Urine (UA) Negative (Negative); Ketones,Urine Negative (Negative); Leukocyte Esterase,Urine 1+ (Negative); Nitrate,Urine Negative (Negative); Protein,Urine 1+ (Negative); Specific Gravity, Urine 1.015 (1.005-1.030); Urobilinogen,Urine 0.2 EU/dl (0.2)
[2021-02-09 16:57] LABS: Basophils % 0.4 % (0.1-2.0); Eosinophils # 0.1 K/mm3 (0.0-0.4); Eosinophils % 1.7 % (0.1-12.0); Hematocrit 25.9 % (42.0-52.0); Hemoglobin 8.8 g/dL (14.1-18.0); Lymphocytes # 0.9 K/mm3 (0.7-4.5); Lymphocytes % 13.6 % (10-50); Mean Corpuscular HGB Conc 33.9 g/dL (31.8-35.4); Mean Corpuscular Hemoglobin 30.3 pg (27.0-31.2); Mean Corpuscular Volume 89.5 fl (80-94); Mean Platelet Volume 7.4 fl (7.4-10.4); Monocytes # 0.2 K/mm3 (0.1-1.0); Monocytes % 3.3 % (1.7-9.3); Neutrophils # 5.1 K/mm3 (1.8-7.8); Neutrophils % 80.9 % (37.0-80.0); Platelet Count 280 K/mm3 (142-424); Red Blood Count 2.89 M/mm3 (4.60-6.20); Red Cell Distribution Width 15.1 % (11.5-17.5); White Blood Count 6.2 K/mm3 (4.8-10.8)
[2021-02-09 17:02] LABS: Bacteria,Urine 1+ /lpf; Squamous Epithelial Cell,Urine Occasional #/hpf (0-5)
[2021-02-09 17:12] LABS: Alanine Aminotransferase 14 U/L (12-78); Albumin Level 2.7 g/dl (3.5-5.0); Alkaline Phosphatase 41 U/L (38-126); Aspartate Amino Transferase 20 U/L (17-59); Bilirubin,Total 0.3 mg/dl (0.2-1.3); Blood Urea Nitrogen 19 mg/dl (9-20); Calcium 7.7 mg/dl (8.4-10.2); Carbon Dioxide 22 mmol/L (22.0-30.0); Chloride 106 mmol/L (98-107); Creatinine Clearance Estimated 37 mL/min (50-200); Estimated Glomerular Filt Rate 50 ml/min (>60); GFR (African American) 61 ML/MIN (>60); Globulin 2.7 g/dL (1.3-3.2); Glucose 173 mg/dl (74-100); Sodium 134 mmol/L (136-145); Total Protein,Serum 5.4 g/dl (6.3-8.2)
[2021-02-09 17:26] LABS: Troponin I < 0.01 ng/ml (0.00-0.034)
--- NOTE | 2021-02-09 17:58 | CT_ITS ---
PROCEDURE INFORMATION: Exam: CT Pelvis Without Contrast; Skeletal Exam date and time: 02/09/2021 5:58 PM Age: 45 years old Clinical indication: Injury or trauma; Fall; Blunt trauma (contusions or hematomas); Does not apply; Pelvic region; Patient HX: Patient fell injuring sacrum/coccyx area. TECHNIQUE: Imaging protocol: Computed tomography images of the pelvis without contrast. Exam focused on the skeletal structures. Radiation optimization: All CT scans at this facility use at least one of these dose optimization techniques: automated exposure control; mA and/or kV adjustment per patient size (includes targeted exams where dose is matched to clinical indication); or iterative reconstruction. COMPARISON: CT ABDOMEN PELVIS WO CON 11/28/2020 5:34 PM FINDINGS: Vasculature: Extensive calcified atherosclerotic plaques in the pelvis and lower extremities. Obrien catheter noted in the urinary bladder. Pelvic organs are not well evaluated on this bone-protocol exam. Bones/joints: No definite fracture or dislocation seen in the sacrum, coccyx or visualized pelvis. Osteopenia. Some cortical irregularity suggested along the anterior distal sacrum on the previous x-rays was likely artifact from slight sacral rotation and overlying soft tissue shadows. There are no lytic skeletal lesions seen. Minimal sacroiliitis, sacroiliac joints appear intact. Severe degenerative disc disease at L4-L5 with chronic endplate erosions and spondylosis, compared with 11/12/2020. Mild degenerative changes of the hip joints, superior joint space narrowing suggesting underlying chondromalacia. Minimal femur head spurs and degenerative cortical irregularity of the left acetabulum. Soft tissues: Slight soft tissue swelling superficial to the lower sacrum and coccyx compared with 11/12/2020, correlate for contusion. No other acute findings in the soft tissues, as visualized. There are no soft tissue masses or loculated fluid collections. IMPRESSION: 1. No acute fracture or dislocation. 2. Specifically, the lower sacrum appears intact on the CT. Cortical irregularity suggested in the lower sacrum on previous x-rays was likely artifact from slight rotation and overlying soft tissue shadows. 3. Degenerative changes in the hips. 4. Lower lumbar degenerative changes, prominent disc disease and spondylosis L4-L5. 5. Extensive atherosclerotic calcified plaques in the pelvis and visualized lower extremities. 6. Slight soft tissue swelling overlying the distal sacrum and coccyx compared with previous CT of 11/12/2020, possible contusion; no loculated fluid collection seen.
--- NOTE | 2021-02-09 18:05 | PC.NURSE ---
Pt to rad.
--- NOTE | 2021-02-09 19:00 | PC.NURSE ---
attempting to call good nori Mullen at this time. [phone]
--- NOTE | 2021-02-09 19:17 | HMH.EDSYNC ---
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 Anemia Qualifiers: Anemia type: unspecified type Qualified Code(s): D64.9 - Anemia, unspecified Diabetes Qualifiers: Diabetes mellitus type: type 1 Diabetes mellitus complication status: with other specified complication Qualified Code(s): E10.69 - Type 1 diabetes mellitus with other specified complication Disposition: Admitted as Observation Condition on Discharge: Fair Referrals: Provider,Referral, MD [Primary Care Provider] - - Critical Care Critical Care Time: No Attestation: On 02/09/21, the high probability of a clinically significant, sudden or life threatening deterioration of the following system(s) required my full and direct attention, intervention and personal management. The time I documented below is in addition to time spent performing reported procedures but includes the following listed in this critical care notation. Medical Decision Making - Medical Records Medical records reviewed: Yes: I reviewed the patient's medical records. - Lazaro Inquiry Pt receiving controlled substance: No Vital Signs: 02/09/21 16:26 Temperature 98.4 F Temperature Source Rectal Pulse Rate [Right] 98 H Respiratory Rate 17 Blood Pressure [Right Arm] 124/76 Blood Pressure Mean [Right Arm] 92 02 Sat by Pulse Oximetry 100 Oxygen Delivery Method Room Air - Lab Data Lab results reviewed: Yes: I reviewed the patient's lab results. Lab Results 02/09/21 16:48: Sodium 134 L, Potassium 4.0, Chloride 106, Carbon Dioxide 22, Anion Gap 10.0, BUN 19, Creatinine 1.50 H, Estimated Creat Clear 37, Estimated GFR 50 L, Est GFR ( Amer) 61, Glucose 173 H, Calcium 7.7 L, Total Bilirubin 0.3, AST 20, ALT 14, Alkaline Phosphatase 41, Troponin I < 0.01, Total Protein 5.4 L, Albumin 2.7 L, Globulin 2.7, Albumin/Globulin Ratio 1.0 L 02/09/21 16:48: WBC 6.2, RBC 2.89 L, Hgb 8.8 L, Hct 25.9 L, MCV 89.5, MCH 30.3, MCHC 33.9, RDW 15.1, Plt Count 280, MPV 7.4, Neut % (Auto) 80.9 H, Lymph % (Auto) 13.6, [place] % (Auto) 3.3, Eos % (Auto) 1.7, Baso % (Auto) 0.4, Neut # (Auto) 5.1, Lymph # (Auto) 0.9, [place] # (Auto) 0.2, Eos # (Auto) 0.1, Baso # (Auto) 0.0 02/09/21 16:50: Urine Color Yellow, Urine Appearance Clear, Urine pH 6.0, Ur Specific Traver 1.015, Urine Protein 1+, Urine Glucose (UA) Negative, Urine Ketones Negative, Urine Blood 2+, Urine Nitrate Negative, Urine Bilirubin Negative, Urine Urobilinogen 0.2, Ur Leukocyte Esterase 1+ A, Urine RBC 5-10, Urine WBC 5-10, Ur Squamous Epith Cells Occasional, Urine Bacteria 1+ Result diagrams: 02/09/21 16:48 02/09/21 16:48 Orders (Tests/Meds): ED MEDICATIONS Discontinued Medications Generic Name Dose Route Start Last Admin Trade Name Starr PRN Reason Stop Dose Admin Ketorolac Tromethamine 15 mg 02/09/21 17:46 02/09/21 17:47 Ketorolac 30mg/Ml Vial IV 02/09/21 17:47 15 mg ONCE ONE Administration ORDERS Category Date Time Status XR pelvis 1-2V Stat Exams 02/09/21 16:33 Stop Req XR pelvis 1-2V Stat Exams 02/09/21 16:33 Taken XR sacrum coccyx min 2V Stat Exams 02/09/21 16:33 Stop Req XR sacrum coccyx min 2V Stat Exams 02/09/21 16:33 Taken Urine Culture Stat Micro 02/09/21 16:50 Received - Radiology Data #1 Image(s): Chest, Pelvis Image Reviewed: Yes I reviewed the patient's radiology image, Yes I have reviewed radiologist's interpretation Preliminary Findings: Abnormal - CT Data CT Scan: Pelvis Time Received
[2021-02-09 19:35] LABS: Coronavirus 19, PCR Not Detected (NotDetected); Influenza A, PCR Not Detected (NotDetected); Influenza B, PCR Not Detected (NotDetected)
--- NOTE | 2021-02-09 20:07 | PC.NURSE ---
Iv has infiltrated. IV removed, site wrapped with 2x2 and coban and LUE elevated. Will attempt new IV access.
--- NOTE | 2021-02-09 20:36 | PC.NURSE ---
patient up to floor via wheelchair.
[2021-02-09 21:18] LABS: POC Glucose,Bedside 211 (70-110)
[2021-02-10] VITALS (26 sets, daily range): BP systolic 90–127; BP diastolic 58–82; PULSE 71–93; RESP 14–85; TEMP 36.4–36.8; O2SAT 98–100; BMI 16.0
--- NOTE | 2021-02-10 03:11 | PC.NURSE ---
A&OX4. TOLERATING RA WELL. C/O FLANK AND TAIL BONE PAIN T/O SHIFT. TX PER OCT. ON REASSESSMENT PT RESTING IN BED. PT PRESENTED TO THE FLOOR WITH A F/C. REPLACED WITH NEW BAG, DRAINING LIGHT YELLOW URINE. PT HAS LARGE APPETITE. APPEARS TO BE MALNOURISHED. PT STATES I COULD BENEFIT FROM HOME HEALTH. NO OTHER C/O THUS FAR, VSS WILL CONTINUE TO MONITOR.
--- NOTE | 2021-02-10 03:14 | PC.NURSE ---
PT STATES HE WANTS TO RECEIVE THE COVID 19 VACCINE.
[2021-02-10 05:22] LABS: POC Glucose,Bedside 244 (70-110)
[2021-02-10 06:45] LABS: Basophils % 0.5 % (0.1-2.0); Lymphocytes # 1.3 K/mm3 (0.7-4.5); Mean Corpuscular HGB Conc 34.3 g/dL (31.8-35.4); Monocytes # 0.2 K/mm3 (0.1-1.0); Neutrophils % 65.8 % (37.0-80.0)
[2021-02-10 06:59] LABS: Eosinophils # 0.1 K/mm3 (0.0-0.4); Lymphocytes % 26.7 % (10-50); Mean Corpuscular Volume 90.4 fl (80-94); Mean Platelet Volume 7.1 fl (7.4-10.4); Neutrophils # 3.1 K/mm3 (1.8-7.8); Platelet Count 242 K/mm3 (142-424); Red Blood Count 2.43 M/mm3 (4.60-6.20); Red Cell Distribution Width 15.5 % (11.5-17.5); White Blood Count 4.8 K/mm3 (4.8-10.8)
[2021-02-10 07:02] LABS: Hemoglobin 7.5 g/dL (14.1-18.0)
--- NOTE | 2021-02-10 07:07 | PC.NURSE ---
CRITICAL LAB RECEIVED @ 0702. B-7.5, HCT 22. VERIFIED PT NAME AND WITH LAB PERSONAL.
[2021-02-10 07:27] LABS: Blood Urea Nitrogen 19 mg/dl (9-20); Calcium 7.2 mg/dl (8.4-10.2); Carbon Dioxide 20 mmol/L (22.0-30.0); Chloride 109 mmol/L (98-107); Creatinine Clearance Estimated 47 mL/min (50-200); Estimated Glomerular Filt Rate 50 ml/min (>60); GFR (African American) 61 ML/MIN (>60); Glucose 171 mg/dl (74-100); Magnesium 1.8 mg/dl (1.6-2.3); Sodium 136 mmol/L (136-145)
--- NOTE | 2021-02-10 07:35 | P.CONPHA_ITS ---
[facility] Pharmacy VTE Monitoring - Patient Demographics Admission date: 02/10/21 Report Date: 02/10/21 Time: 07:35 Allergies/Adverse Reactions: Patient Allergies Penicillins Allergy (Severe, Verified 01/21/21 10:31) Hives Height: 1.83 m Weight: 53.581 kg Patient Problems: Current Active Problems Low body mass index (Chronic) Avascular necrosis of bone of hip (Acute) Syncope (Acute) Anemia (Acute) Diabetes (Chronic) Obrien catheter in place (Acute) UTI (urinary tract infection) (Acute) - VTE Risk Labs: VTE Related Lab Results Hgb 7.5 g/dL (14.1-18.0) L* 02/10/21 06:41 Hct 22.0 % (42.0-52.0) L* 02/10/21 06:41 Plt Count 242 K/mm3 (142-424) 02/10/21 06:41 BUN 19 mg/dl (9-20) 02/10/21 06:41 Creatinine 1.50 mg/dl (0.66-1.25) H 02/10/21 06:41 Estimated Creat Clear 47 mL/min (50-200) 02/10/21 06:41 Clinical Trial Participant: No - Prophylaxis VTE Prophylaxis Ordered?: Yes Types of VTE Prophylaxis: TEDS Knee High
--- NOTE | 2021-02-10 07:45 | HMH.PHAINT ---
HOME MEDICATION LIST VERIFIED USING LIST FROM HOME PHARMACY AND [facility] OFFICE
--- NOTE | 2021-02-10 09:07 | HMH.CNCARD ---
History of Present Illness Consult date: 02/10/21 Requesting physician: Herrera Carmona Chief complaint: syncope History of present illness: This is a 45-year-old white gentleman who presented to the emergency department with complaints of syncope. The patient states that he was cooking lunch yesterday around noon when he had an episode where he passed out. The patient states that he thinks that he lost consciousness. He fell and hit his tailbone. He is still complaining of pain in the tailbone area. The patient has been ruled out for a pelvic fracture. The patient does have an indwelling Obrien catheter that was placed per the patient's report last week at [facility] because he had blood in his urine. Records from [facility] have been requested but are not available for me to review at the time of my examination. The patient does have a history of drug abuse, diabetes and hepatitis C. The patient denies any chest pain or pressure. He denies any shortness of breath or edema. He denies any fever, chills, nausea, vomiting, diarrhea, PND or orthopnea. He states that he had no symptoms prior to his syncopal episode. The patient denies any dizziness or lightheadedness. [facility] History I have reviewed the patient's past medical history: Yes Medical History: Reports:: Anxiety, Depression, Diabetes Mellitus Type 2 Denies:: Cancer, Diabetes Mellitus Type 1, Internal Pacemaker, MRSA, Seizures *Have you ever received a pneumonia vaccine?: Yes *Have you received a flu vaccine this season?: Yes Other Surgeries: Yes: Colonoscopy, Other. No: Pacemaker Amputation: No Fractures: No - *Social History Smoking Status: Former smoker Tobacco Type: cigarettes # Packs/Day (cigarettes): 0 Alcohol Intake: never Alcohol Intake Frequency:: holidays/special occasions only Substance Use Type: heroin, former substance user *Occupational Status:: disabled Housing: other Household Members: none *Travel in the last 8 weeks: None - Psychiatric History Pschychiatric History:: Reports:: Anxiety, Depression Family Hx:: No significant family history Meds Home Medications Medication Instructions Recorded Confirmed Type hydrocodone 5 mg-acetaminophen 325 1 tab PO BID PRN #14 tab 01/21/21 02/09/21 Rx mg tablet insulin glargine 100 unit/mL (3 15 unit SQ HS #15 ml 01/21/21 02/09/21 Rx mL) subcutaneous pen insulin lispro 100 unit/mL See Rx Instructions .ROUTE 01/21/21 02/09/21 Rx subcutaneous cartridge .COMPLEX #15 ml omeprazole 40 mg capsule,delayed 40 mg PO DAILY #90 cap 01/21/21 02/09/21 Rx release quetiapine 200 mg tablet 200 mg PO HS #90 tab 01/21/21 02/09/21 Rx Semaglutide [Ozempic] 1 mg SQ WEEKLY 02/09/21 02/09/21 History Gabapentin 800 mg PO TID 02/10/21 02/10/21 History lisinopriL [Lisinopril] 5 mg PO DAILY 02/10/21 02/10/21 History Allergies Allergy/AdvReac Type Severity Reaction Status Date / Time Penicillins Allergy Severe Hives Verified 01/21/21 10:31 Exam Vital signs and Labs for Last 24 Hours: Temp Pulse Resp BP Pulse Ox 97.6 F 92 H 17 112/65 99 02/10/21 07:39 02/10/21 07:39 02/10/21 07:39 02/10/21 07:39 02/10/21 07:39 Laboratory Results - last 24 hr 02/09/21 16:48: Sodium 134 L, Potassium 4.0, Chloride 106, Carbon Dioxide 22, Anion Gap 10.0, BUN 19, Creatinine 1.50 H, Estimated Creat Clear 37, Estimated GFR 50 L, Est GFR ( Amer) 61, Glucose 173 H, Calcium 7.7 L, Total Bilirubin 0.3, AST 20, ALT 14, Alkaline Phosphatase 41, Troponin I < 0.01, Total Protein 5.4 L, Albumin 2.7 L, Globulin 2.7, Albumin/Globulin Ratio 1.0 L 02/09/21 16:48: WBC 6.2, RBC 2.89 L, Hgb 8.8 L, Hct 25.9 L, MCV 89.5, MCH 30.3, MCHC 33.9, RDW 15.1, Plt Count 280, MPV 7.4, Neut % (Auto) 80.9 H, Lymph % (Auto) 13.6, [place] % (Auto) 3.3, Eos % (Auto) 1.7, Baso % (Auto) 0.4, Neut # (Auto) 5.1, Lymph # (Auto) 0.9, [place] # (Auto) 0.2, Eos # (Auto) 0.1, Baso # (Auto) 0.0 02/09/21 16:50: Urine Color Yellow, Urine Appe
--- NOTE | 2021-02-10 10:27 | HMH.HP ---
*Admission Date: 02/10/21 *Chief complaint: Syncope *History of present illness: This is a 45-year-old white gentleman who presented to the emergency department with complaints of syncope. The patient states that he was cooking lunch yesterday around noon when he had an episode where he passed out. The patient states that he thinks that he lost consciousness. He fell and hit his tailbone. He is still complaining of pain in the tailbone area. The patient has been ruled out for a pelvic fracture. The patient does have an indwelling Obrien catheter that was placed per the patient's report last week at [facility] because he had blood in his urine. Records from [facility] have been requested but are not available for me to review at the time of my examination. The patient does have a history of drug abuse, diabetes and hepatitis C. The patient denies any chest pain or pressure. He denies any shortness of breath or edema. He denies any fever, chills, nausea, vomiting, diarrhea, PND or orthopnea. He states that he had no symptoms prior to his syncopal episode. The patient denies any dizziness or lightheadedness (Per Darien Goldberg GRINDING WHEEL OPERATOR). H/H 7.5/ 2 units PRBC's ordered. He has a history of GIB in past and has had to reschedule colonoscopy in past due to not following bowel prep [facility] History I have reviewed the patient's past medical history: Yes Medical History: Reports:: Anxiety, Depression, Diabetes Mellitus Type 2 Denies:: Cancer, Diabetes Mellitus Type 1, Internal Pacemaker, MRSA, Seizures *Have you ever received a pneumonia vaccine?: Yes *Have you received a flu vaccine this season?: Yes Other Surgeries: Yes: Colonoscopy, Other. No: Pacemaker Amputation: No Fractures: No - *Social History Smoking Status: Former smoker Tobacco Type: cigarettes # Packs/Day (cigarettes): 0 Alcohol Intake: never Alcohol Intake Frequency:: holidays/special occasions only Substance Use Type: heroin, former substance user *Occupational Status:: disabled Housing: other Household Members: none *Travel in the last 8 weeks: None - Psychiatric History Pschychiatric History:: Reports:: Anxiety, Depression Family Hx:: No significant family history Review of Systems - Review of Systems Review of systems:: pertinent systems reviewed and negative unless documented below - Constitutional Denies body ache(s), Denies headache(s) - Eyes Denies blurry vision, Denies sensitivity to light - ENT Denies abnormal hearing, Denies mouth pain - *Cardiovascular Reports chest pain, Reports chest pain with activity, Denies shortness of breath - *Respiratory Denies chest congestion, Denies shortness of breath - *Gastrointestinal Denies abdominal pain, Denies change in stools - *Musculoskeletal Denies joint pain, Denies muscle cramps - Integumentary/Breasts Denies hair loss, Denies new lesions - *Neurologic Reports frequent falls, Reports fainting, Denies headache(s), Denies seizure-like activity - Psychiatric Reports lack of enjoyment, Denies behavioral changes - Endocrine Denies cold intolerance, Denies heat intolerance - Hematologic/Lymphatic Denies easy bleeding, Denies easy bruising - Allergic/Immunologic Reports lip swelling, Denies GI upset with certain foods Meds Home Medications Medication Instructions Recorded Confirmed Type hydrocodone 5 mg-acetaminophen 325 1 tab PO BID PRN #14 tab 01/21/21 02/09/21 Rx mg tablet insulin glargine 100 unit/mL (3 15 unit SQ HS #15 ml 01/21/21 02/09/21 Rx mL) subcutaneous pen insulin lispro 100 unit/mL See Rx Instructions .ROUTE 01/21/21 02/09/21 Rx subcutaneous cartridge .COMPLEX #15 ml omeprazole 40 mg capsule,delayed 40 mg PO DAILY #90 cap 01/21/21 02/09/21 Rx release quetiapine 200 mg tablet 200 mg PO HS #90 tab 01/21/21 02/09/21 Rx Semaglutide [Ozempic] 1 mg SQ WEEKLY 02/09/21 02/09/21 History Gabapentin 800 mg PO TID 02/10
--- NOTE | 2021-02-10 12:37 | PC.NURSE ---
spoke with md office about patient request to increase his norco tablets. stated okay to increase norco 5mg/325mg to TIDPrn
--- NOTE | 2021-02-10 13:15 | PC.NURSE ---
intake for first unit of blood blood-290ml saline-20ml
--- NOTE | 2021-02-10 13:23 | HMH.OTEV ---
OT Inpatient Evaluation Rehab OT IP Evaluation Start: 02/09/21 19:44 Freq: ONCE Status: Complete Protocol: Document 02/10/21 13:19 THOMAS (Rec: 02/10/21 13:22 [facility] [id number]) Rehab OT IP Assessment Subjective History Pt oriented x 3 on arrival. Pt agreeable to engage in therapy evaluation. Pt was admitted via ED on 02/09/21 due to a fall/faint at home while cooking lunch. Pt reports he has tailbone pain. Pt has a past medical history of Anxiety, Depression, Diabetes Mellitus Type 2. Pt explains he lived at home alone prior. His neighbor checks on him daily. Pt did use a walker during ambulation. Pt was independent with ADLs. Pt did require assistance with IADLs . Subjective I usually had someone take me to the grocery. Objective Patient Orientation Person,Place,Birthday Upper Extremity Gross ROM Min Limitation <25% Shoulder ROM Limitations Muscle Weakness Elbow ROM Limitations Muscle Weakness Wrist Limitations of Range of Motion Muscle Weakness Bed Mobility bed mobility-scooting,bed mobility - supine/sit,bed mobility - rolling Assist Level Supervision/Stand by Transfer Training Sit/Stand Transfer Assist Level Contact Guard/Hand Hold Rehab OT IP prob,goals,plan Problems Date of Evaluation: 02/10/21 OT IP Problems Bed Mobility,Transfers,Gait, Balance,Self care,Safety Rehab Potential Rehab Potential Good Equipment Needs Assistive Devices Rolling / Wheeled Walker Plan OT intervention Plan Bed Mobility,Transfers,Gait, Balance,Self care,Safety, Therapeutic Exercise OT Plan Frequency BID Duration LOS Discharge Goals Bed Mobility Ability Standby Assistance Sit to Stand Chair Transfer Ability Supervision/Stand by Chair Transfer Ability Independent,Supervision/Stand by Chair Transfer Technique Sit to/from Ambulatory Chair Transfer Assistive Devices Rolling Walker Feeding Ability Assist with Tray Set Up Lower Body Dressing Ability Standby As
--- NOTE | 2021-02-10 13:40 | HMH.PTEV ---
Physical Therapy Evaluation Rehab PT IP Evaluation Start: 02/09/21 19:42 Freq: ONCE Status: Active Protocol: Document 02/10/21 13:32 SANDRA (Rec: 02/10/21 13:40 SANDRA [id number]) Subjective/History History History his is a 45-year-old white gentleman who presented to the emergency department with complaints of syncope. The patient states that he was cooking lunch yesterday around noon when he had an episode where he passed out. The patient states that he thinks that he lost consciousness. He fell and hit his tailbone. He is still complaining of pain in the tailbone area. The patient has been ruled out for a pelvic fracture. The patient does have an indwelling Obrien catheter that was placed per the patient's report last week at [facility] because he had blood in his urine. Subjective Subjective Pt reports pain in tail bone Rehab PT IP Eval Objective Appearance Patient Behavior Appropriate,Resistive to Care Patient Orientation Person,Place,Time Difficulty following instructions none Speech Pattern Appropriate Ambulation Patient Able to Ambulate Yes Ambulation Observation IP General Gait Pattern Observation Shuffling Step Ambulation Distance (feet) 5 Ambulation Assistive Device None Ambulation Ability Contact Guard/Hand Hold Balance Ability to Arise Able, uses arms to help Sitting Balance Steady, safe Standing Balance Steady, wide stance Dynamic Sitting Balance Ability Good Dynamic Standing Balance Ability Fair Transfers Bed Transfer Ability Independent Chair Transfer Ability Independent Sit to Stand Bed Transfer Ability Contact Guard/Hand Hold Sit to Stand Chair Transfer Ability Contact Guard/Hand Hold ROM All Extremities PT ROM Status WFL MMT All Extremities PT MMT WFL Rehab PT IP prob,goals,plan Problems Date of Evaluation: 02/10/21 PT IP Problems Gait,Safety Rehab Potential Rehab Potential Good Equipment Needs Assistive Devices Rolling / Wheeled Walker Plan PT Intervention Plan Transfers,Gait,
--- NOTE | 2021-02-10 15:36 | PC.NURSE ---
relayed to patient that he would be having a colonoscopy tomorrow and he stated he absolutely would not drink any of the bowel prep. patient has been on a regular diabetic diet today. patient is adamant he will not change his mind. education give why it was needed
[2021-02-10 16:29] LABS: POC Glucose,Bedside 119 (70-110)
--- NOTE | 2021-02-10 17:36 | PC.NURSE ---
2nd unit of blood amount blood-290ml saline-30ml
--- NOTE | 2021-02-10 17:37 | PC.NURSE ---
Patient has had an okay day. appetite has been good. has not been up out of bed. patient at this time says he is not doing the colonoscopy because he wants his dinner of pizza and fries. educated on need for colonoscopy and called md. md ordered 2mg ativan iv q4hour prn for agitation. will continue to assess what patient is willing to do. rings out as needed. has drank multiple diet annmarie mists. tolerated blood transfusions well. patel draining yellow clearish urine. no bm this shift. vitals stable. requiring pain medication for tail bone pain.
--- NOTE | 2021-02-10 17:47 | PC.NURSE ---
patient is very adamant that he wants what he ordered for dinner. md stated he needed to remain on clears and npo at midnight. patient states he would sign out ama but has no ride available. states he is refusing to drink prep and do test in morning. stated he wanted to eat and hadn't had anything he wanted this shift. patient has been noted to have 3 bags of baked chips per his request this shift, at breakfast patient requested more sausage which was provided, and for lunch patient noted to have a hamburger with no further requests. patient has also been provided sherbert and vanilla ice cream.
[2021-02-10 17:55] LABS: Hematocrit 29.8 % (42.0-52.0)
[2021-02-10 18:08] LABS: Hemoglobin 10.2 g/dL (14.1-18.0)
[2021-02-10 20:27] LABS: POC Glucose,Bedside 107 (70-110)
--- NOTE | 2021-02-10 20:37 | PC.NURSE ---
He is A&Ox4. He reports pain in his kidneys and tailbone of which he rates a /10. He reports that he fell yesterday. He denies dizziness and SOA. Safety is set and call light within reach. He reports that his last BM was on 02/08/21. F/C is patent with yellow, clear urine. He continues on RA. He agreed to drink the mag citrate.
--- NOTE | 2021-02-10 21:10 | PC.NURSE ---
Increased confusion after receiving lorazepam. He continues to try to get out of bed stating he is going to bed. Safety set and call light within reach.
[2021-02-10 21:46] LABS: POC Glucose,Bedside 156 (70-110)
--- NOTE | 2021-02-11 00:44 | PC.NURSE ---
He is agitated at this time. Stating to cancel the surgery. He wants a annmarie mist. He is a fall risk. Continues to get out of bed.
[2021-02-11 02:18] VITALS: BP 135/93; PULSE 86; RESP 17; TEMP 36.6; O2SAT 99
[2021-02-11 04:37] VITALS: BMI 16.2
--- NOTE | 2021-02-11 05:25 | PC.NURSE ---
He will wake up and try to get out of bed and pull at his covers but had to be asked numerous times to take a drink. He drank half of his mag citrate before he stated no. He refuses to drink the rest of it. He did not have a BM. House notified that he is refusing to drink the rest of his bowel prep and the lack of BM. Will also past on to next shift.
--- NOTE | 2021-02-11 05:49 | PC.NURSE ---
He has since drank another 1/4 of the bottle per his request.
[2021-02-11 05:55] LABS: POC Glucose,Bedside 96 (70-110)
[2021-02-11 06:35] LABS: Basophils % 0.9 % (0.1-2.0); Eosinophils # 0.1 K/mm3 (0.0-0.4); Eosinophils % 2.8 % (0.1-12.0); Hematocrit 35.8 % (42.0-52.0); Lymphocytes # 0.8 K/mm3 (0.7-4.5); Lymphocytes % 16.7 % (10-50); Mean Corpuscular HGB Conc 33.9 g/dL (31.8-35.4); Mean Corpuscular Hemoglobin 29.7 pg (27.0-31.2); Mean Corpuscular Volume 87.4 fl (80-94); Mean Platelet Volume 8.6 fl (7.4-10.4); Monocytes # 0.3 K/mm3 (0.1-1.0); Monocytes % 5.6 % (1.7-9.3); Neutrophils # 3.6 K/mm3 (1.8-7.8); Platelet Count 188 K/mm3 (142-424); Red Cell Distribution Width 15.8 % (11.5-17.5); White Blood Count 4.9 K/mm3 (4.8-10.8)
[2021-02-11 06:46] LABS: Blood Urea Nitrogen 19 mg/dl (9-20); Calcium 7.5 mg/dl (8.4-10.2); Carbon Dioxide 20 mmol/L (22.0-30.0); Chloride 112 mmol/L (98-107); Creatinine Clearance Estimated 51 mL/min (50-200); Estimated Glomerular Filt Rate 55 ml/min (>60); GFR (African American) 66 ML/MIN (>60); Glucose 92 mg/dl (74-100); Sodium 136 mmol/L (136-145)
[2021-02-11 06:52] LABS: Hemoglobin 12.2 g/dL (14.1-18.0)
[2021-02-11 07:47] VITALS: BP 133/92; PULSE 92; RESP 18; TEMP 36.9; O2SAT 96
[2021-02-11 08:00] VITALS: O2SAT 96
--- NOTE | 2021-02-11 08:52 | HMH.ACPN2 ---
Internal Medicine - PN: Subj *Date: 02/11/21 *Time: 08:52 Interval history: 45-year-old male patient resting in bed quietly with eyes closed, awakens to verbal stimuli. He denies any abdominal pain at present. He did not fully complete bowel regimen last night for colonoscopy, appears completed 3/4 of mag citrate ordered. He verbalizes understanding procedure today and need for procedure and will proceed Exam Vital signs and Labs for Last 24 Hours: Temp Pulse Resp BP Pulse Ox 98.4 F 92 H 18 133/92 H 96 02/11/21 07:47 02/11/21 07:47 02/11/21 07:47 02/11/21 07:47 02/11/21 07:47 Laboratory Results - last 24 hr 02/10/21 08:10: Blood Type A Positive, Antibody Screen Negative, Crossmatch (AHG) See Detail 02/10/21 11:23: POC Glucose 119 H 02/10/21 16:51: POC Glucose 156 H 02/10/21 17:38: Hgb 10.2 L D, Hct 29.8 L 02/10/21 19:46: POC Glucose 107 02/11/21 05:46: POC Glucose 96 02/11/21 06:00: WBC 4.9, RBC 4.10 L D, Hgb 12.2 L D, Hct 35.8 L, MCV 87.4, MCH 29.7, MCHC 33.9, RDW 15.8, Plt Count 188, MPV 8.6, Neut % (Auto) 74.0, Lymph % (Auto) 16.7, [place] % (Auto) 5.6, Eos % (Auto) 2.8, Baso % (Auto) 0.9, Neut # (Auto) 3.6, Lymph # (Auto) 0.8, [place] # (Auto) 0.3, Eos # (Auto) 0.1, Baso # (Auto) 0.0 02/11/21 06:00: Sodium 136, Potassium 5.0 D, Chloride 112 H, Carbon Dioxide 20 L, Anion Gap 9.0, BUN 19, Creatinine 1.40 H, Estimated Creat Clear 51, Estimated GFR 55 L, Est GFR ( Amer) 66, Glucose 92 D, Calcium 7.5 L I & O for Last 24 hours: Intake & Output 02/08/21 02/09/21 02/10/21 02/11/21 23:59 23:59 23:59 23:59 Intake Total 50 / 50 4865 / 4865 40 / 40 Output Total 1950 / 2950 1700 / 1700 Balance 50 / 50 2915 / 1915 -1660 / -1660 Weight 113 lb 1 oz 118 lb 2 oz 120 lb 0.7 oz Microbiology Reports for the Last 24 Hours: Microbiology 02/09/21 16:50 Urine,Clean Catch Urine Culture - Preliminary NO GROWTH AFTER 24 HOURS - Constitutional no acute distress, cachectic, chronically ill appearing - *Routine HEENT Exam Head: Present: normocephalic Eye: Present: EOMI ENT: Present: mucous membranes dry - *Routine Neck Exam Present: trachea midline. Absent: tenderness - *Routine Respiratory Exam Present: CTA bilaterally. Absent: accessory muscle use - *Routine Cardiovascular Exam Present: RRR - *Routine Abdominal Exam Present: soft, normoactive bowel sounds. Absent: tenderness, firm - *Routine Extremities Exam Present: full ROM, pulses intact. Absent: cyanosis, clubbing, calf tenderness - *Routine Skin Exam Present: intact, dry, warm. Absent: cyanosis, erythema - *Routine Neurological Exam Present: alert, oriented X3. Absent: motor deficit, altered mental status - Routine Psychiatric Exam Present: normal affect, normal thought process. Absent: auditory hallucinations, agitated Assessment and Plan (1) Syncope Status: Acute Qualifiers: Syncope type: unspecified Qualified Code(s): R55 - Syncope and collapse Category: Medical Code(s): R55 - Syncope and collapse (2) Anemia Status: Acute Qualifiers: Anemia type: unspecified type Qualified Code(s): D64.9 - Anemia, unspecified Category: Medical Code(s): D64.9 - Anemia, unspecified (3) Diabetes Status: Chronic Qualifiers: Diabetes mellitus type: type 2 Diabetes mellitus fdc insulin use: with emt intermediate use Diabetes mellitus complication status: with other specified complication Qualified Code(s): E11.69 - Type 2 diabetes mellitus with other specified complication; Z79.4 - exterminator (current) use of insulin Category: Medical Code(s): E11.9 - Type 2 diabetes mellitus without complications (4) Obrien catheter in place Status: Acute Category: Medical Code(s): Z97.8 - Presence of other specified devices (5) History of substance abuse Status: Chronic Category: Medical Code(s): F19.11 - Other psychoactive substance abuse, in remission
--- NOTE | 2021-02-11 10:36 | XR_ITS ---
PROCEDURE: XR HIP LT 2-3V W/PELVIS RIGHT HIP TWO VIEWS CLINICAL INDICATION: Fall COMPARISON: CR XR HIP RT 2-3V W/PELVIS from 02/11/2021 FINDINGS: AP view of the pelvis shows mild osteoarthritic changes of both hips along with diffuse vascular calcification. No fracture or dislocation. No lytic or blastic change. IMPRESSION: Minimal osteoarthritic changes of the hips Dictated by: Elliott Person MD 02/11/2021 12:15 Elliott Person MD in OV 02/11/2021 12:15
--- NOTE | 2021-02-11 10:41 | XR_ITS ---
PROCEDURE: XR HIP RT 2-3V W/PELVIS CLINICAL INDICATION: FALL Injury with pain COMPARISON: No exams were available for comparison FINDINGS: Minimal osteoarthritic change of the right hip. No acute fracture or dislocation. Mild diffuse vascular calcification. IMPRESSION: Minimal osteoarthritis, no acute finding Dictated by: Elliott Person MD 02/11/2021 12:16 Elliott Person MD in OV 02/11/2021 12:16
--- NOTE | 2021-02-11 10:41 | PC.NURSE ---
41 - Spoke w/ aRsta DiazRN she states that Dr. Simpson wishes to proceed w/ EGD & colonoscopy. to order for pt to have 2 fleets enemas as well prior to scope. 50 - This nurse entered room and spoke w/ pt about EGD and colonoscopy, pt uncooperative w/ staff cussing and saying that he just wants to eat. Staff attempted to educate pt on need for scopes, pt proceeded to pull his blanket over his head and tell staff to get out of his room. 56 - Spoke w/ Dr. Beltran via phone, made aware of pt being uncooperative and refusing care. states that if pt is refusing treatment and will not cooperate w/ staff he would need to leave AMA. This nurse as well as the floor charge nurse returned to pt's room and reviewed plan of care, pt continues to be uncooperative stating the he wants food and to just send him home, pt not signing AMA paper. 1019 - R sharlene Carrasquillo custom protection officer notified that pt is uncooperative w/ care and refusing care but not attempting to leave AMA. Foreign states that if pt is not wanting to sign AMA paper but MD feels that pt needs further work-up but is refusing this he will need to discharge pt. While nurse if on the phone w/ R Foreign staff reports pt attempted to get up by himself to, pt states put his clothes on . Pt laying on his right side, patel cath had been to drain @ bedside had pulled and trauma noted to tip of penis. Pt had soiled himself. VS obtained, 116/71 HR 100 Resp 19 Temp 98.0 Sat 94 RA. Pt assisted up to shower chair to clean BM off of pt. 1027 - Dr. Beltran made aware of fall, states to obtain x-ray of hips. also made aware of conversation w/ R Foreign. states he will DC patient. PT currently lying in bed resting. Bed alarm in place. Call liu w/in reach.
[2021-02-11 11:34] VITALS: BMI 16.1
--- NOTE | 2021-02-11 11:47 | PC.NURSE ---
1102 - Pre-op aware that pt is refusing to sign consent for EGD and colonoscopy.
--- NOTE | 2021-02-11 12:53 | HMH.DCSUM ---
General - General Admission date:: 02/09/21 Discharge date: 02/11/21 HPI HPI: This is a 45-year-old white gentleman who presented to the emergency department with complaints of syncope. The patient states that he was cooking lunch yesterday around noon when he had an episode where he passed out. The patient states that he thinks that he lost consciousness. He fell and hit his tailbone. He is still complaining of pain in the tailbone area. The patient has been ruled out for a pelvic fracture. The patient does have an indwelling Obrien catheter that was placed per the patient's report last week at [facility] because he had blood in his urine. Records from [facility] have been requested but are not available for me to review at the time of my examination. The patient does have a history of drug abuse, diabetes and hepatitis C. The patient denies any chest pain or pressure. He denies any shortness of breath or edema. He denies any fever, chills, nausea, vomiting, diarrhea, PND or orthopnea. He states that he had no symptoms prior to his syncopal episode. The patient denies any dizziness or lightheadedness (Per Darien Goldberg LIFE INSURANCE SPECIALIST). H/H 7.5/ 2 units PRBC's ordered. He has a history of GIB in past and has had to reschedule colonoscopy in past due to not following bowel prep Hospital Course Hospital Course: Pt was admitted for further evaluation and transfused. Has had several transfusions, and at least one failed attempt to scope in the past due to intol of prep as an outpatient. Pt was slated for upper/lower endoscopy this morning. He refused the procedure. Hgb has been stable since transfusion. Will discharge to home and re-evaluate as an outpatient. Objective Vital signs: Temp Pulse Resp BP Pulse Ox 98.4 F 92 H 18 133/92 H 96 02/11/21 07:47 02/11/21 07:47 02/11/21 07:47 02/11/21 07:47 02/11/21 08:00 no acute distress, cachectic, chronically ill appearing - *Routine HEENT Exam Head: Present: normocephalic Eye: Present: EOMI, PERRL ENT: Present: mucous membranes moist - *Routine Neck Exam Present: supple - *Routine Respiratory Exam Present: CTA bilaterally - *Routine Cardiovascular Exam Present: RRR - *Routine Abdominal Exam Present: soft, normoactive bowel sounds. Absent: tenderness - *Routine Extremities Exam Absent: cyanosis, clubbing, edema - *Routine Skin Exam Present: warm. Absent: jaundice, rash Results Labs on day of discharge: Labs from last 24 hours 02/11/21 02/11/21 02/11/21 06:00 06:00 05:46 WBC 4.9 RBC 4.10 L D Hgb 12.2 L D Hct 35.8 L MCV 87.4 MCH 29.7 MCHC 33.9 RDW 15.8 Plt Count 188 MPV 8.6 Neut % (Auto) 74.0 Lymph % (Auto) 16.7 [place] % (Auto) 5.6 Eos % (Auto) 2.8 Baso % (Auto) 0.9 Neut # (Auto) 3.6 Lymph # (Auto) 0.8 [place] # (Auto) 0.3 Eos # (Auto) 0.1 Baso # (Auto) 0.0 Sodium 136 Potassium 5.0 D Chloride 112 H Carbon Dioxide 20 L Anion Gap 9.0 BUN 19 Creatinine 1.40 H Estimated Creat Clear 51 Estimated GFR 55 L Est GFR ( Amer) 66 Glucose 92 D POC Glucose 96 Calcium 7.5 L Blood Type Antibody Screen Crossmatch ([facility]) 02/10/21 02/10/21 02/10/21 19:46 17:38 16:51 WBC RBC Hgb 10.2 L D Hct 29.8 L MCV MCH MCHC RDW Plt Count MPV Neut % (Auto) Lymph % (Auto) [place] % (Auto) Eos % (Auto) Baso % (Auto) Neut # (Auto) Lymph # (Auto) [place] # (Auto) Eos # (Auto) Baso # (Auto) Sodium Potassium Chloride Carbon Dioxide Anion Gap BUN Creatinine Estimated Creat Clear Estimated GFR Est GFR ( Amer) Glucose POC Glucose 107 156 H Calcium Blood Type Antibody Screen Crossmatch ([facility]) 02/10/21 02/10/21 11:23 08:10 WBC RBC Hgb Hc
--- NOTE | 2021-02-11 13:22 | SW/DCPLANNER ---
Addendum entered by Elizabeth Cruz 02/11/21 13:59: Aylin has called back stating that patients ride will be here today between 3-4PM Original Note: I spoke with Aylin gibbons/ [facility] [facility] [employer] ([phone]) and arranged transportation for this patient. Confirmation # [id number] and they will transport patient today.
== END 2021-02-11 15:55 | disposition home or self-care (01) ==
LOC: ER 19:36 → 2ND 22:10
PROVIDERS: Internal Medicine Gastroenterology; Nurse Practitioner Family; Admitting Provider Emergency Medicine; Emergency Provider Emergency Medicine; Visit Provider Family Medicine
PROC: 0DJD8ZZ Inspection of Lower Intestinal Tract, Via Natural or Artificial Opening Endoscopic (ICD-10-PCS; CPT 45378; principal; 2021-02-11 13:30)
DX: R55 Syncope and collapse (principal); N39.0 Urinary tract infection, site not specified; M87.9 Osteonecrosis, unspecified; F41.9 Anxiety disorder, unspecified; F32.9 Major depressive disorder, single episode, unspecified; E11.69 Type 2 diabetes mellitus with other specified complication; F17.290 Nicotine dependence, other tobacco product, uncomplicated; F11.11 Opioid abuse, in remission; Z79.4 Long term (current) use of insulin; Z88.0 Allergy status to penicillin; N18.9 Chronic kidney disease, unspecified; R33.9 Retention of urine, unspecified; E43 Unspecified severe protein-calorie malnutrition; Z68.1 Body mass index [BMI] 19.9 or less, adult; D63.1 Anemia in chronic kidney disease
CPT/HCPCS: 36415; 71045; 72170; 72192; 72220; 73502; 80048; 80053; 81001; 82962; 83735; 84484; 85014; 85018; 85025; 86850; 87086; 93005; 93270; 93306; 96374; 96375; 97110; 97162; 97166; 99284; 99291; G0378; J1335; P9016; U0003

== ENCOUNTER → 2021-07-26 15:39 | Outpatient (CLI) | payer MEDICAID, SELFPAY ==
[2021-07-26 16:02] LABS: Basophils # 0.1 K/mm3 (0-0.2); Basophils % 0.9 % (0.1-2.0); Eosinophils # 0.2 K/mm3 (0.0-0.4); Eosinophils % 3.9 % (0.1-12.0); Hematocrit 32.9 % (42.0-52.0); Hemoglobin 10.8 g/dL (14.1-18.0); Lymphocytes # 1.8 K/mm3 (0.7-4.5); Lymphocytes % 27.9 % (10-50); Mean Corpuscular HGB Conc 32.7 g/dL (31.8-35.4); Mean Corpuscular Hemoglobin 30.6 pg (27.0-31.2); Mean Corpuscular Volume 93.5 fl (80-94); Mean Platelet Volume 7.9 fl (7.4-10.4); Monocytes # 0.2 K/mm3 (0.1-1.0); Neutrophils % 64.3 % (37.0-80.0); Platelet Count 287 K/mm3 (142-424); Red Blood Count 3.52 M/mm3 (4.60-6.20); Red Cell Distribution Width 14.5 % (11.5-17.5); White Blood Count 6.3 K/mm3 (4.8-10.8)
[2021-07-26 16:54] LABS: Alanine Aminotransferase 35 U/L (12-78); Albumin Level 4.4 g/dl (3.5-5.0); Albumin/Globulin Ratio 1.5 (1.1-1.8); Alkaline Phosphatase 46 U/L (38-126); Anion Gap 17.6 mEq/L (5-15); Aspartate Amino Transferase 28 U/L (17-59); Blood Urea Nitrogen 27 mg/dl (9-20); Calcium 8.7 mg/dl (8.4-10.2); Carbon Dioxide 21 mmol/L (22.0-30.0); Chloride 103 mmol/L (98-107); Chol/HDL Ratio 2.6 (1-3.5); Cholesterol 162 mg/dl (140-200); Estimated Glomerular Filt Rate 36 ml/min (>60); GFR (African American) 44 ML/MIN (>60); Glucose 216 mg/dl (74-100); HDL Cholesterol 63 mg/dl (40-60); Potassium 4.6 mmoL/L (3.5-5.1); Sodium 137 mmol/L (136-145); Total Protein,Serum 7.4 g/dl (6.3-8.2); Triglycerides 96 mg/dl (30-150); VLDL Cholesterol 19 mg/dL (0-40)
[2021-07-26 16:56] LABS: Bilirubin,Total 0.1 mg/dl (0.2-1.3)
[2021-07-26 17:04] LABS: Direct LDL Cholesterol 88.13 mg/dL (100-129)
== END ==
PROVIDERS: Visit Provider Family Medicine
DX: E11.9 Type 2 diabetes mellitus without complications (principal); Z79.4 Long term (current) use of insulin
CPT/HCPCS: 80053; 80061; 83036; 85025

== ENCOUNTER → 2021-10-20 09:39 | Outpatient (CLI) | payer MEDICAID, SELFPAY ==
[2021-10-20 17:53] LABS: Basophils % 0.6 % (0.1-2.0); Eosinophils # 0.2 K/mm3 (0.0-0.4); Eosinophils % 4.9 % (0.1-12.0); Hematocrit 24.9 % (42.0-52.0); Hemoglobin 8.1 g/dL (14.1-18.0); Lymphocytes # 1.1 K/mm3 (0.7-4.5); Lymphocytes % 28.7 % (10-50); Mean Corpuscular HGB Conc 32.3 g/dL (31.8-35.4); Mean Corpuscular Hemoglobin 30.4 pg (27.0-31.2); Mean Corpuscular Volume 93.9 fl (80-94); Mean Platelet Volume 7.7 fl (7.4-10.4); Monocytes # 0.2 K/mm3 (0.1-1.0); Monocytes % 4.6 % (1.7-9.3); Neutrophils # 2.3 K/mm3 (1.8-7.8); Neutrophils % 61.2 % (37.0-80.0); Platelet Count 172 K/mm3 (142-424); Red Blood Count 2.65 M/mm3 (4.60-6.20); White Blood Count 3.7 K/mm3 (4.8-10.8)
[2021-10-20 18:01] LABS: Hemoglobin A1C 6.6 % (4.0-6.0)
[2021-10-20 18:11] LABS: Alanine Aminotransferase 61 U/L (12-78); Albumin Level 3.7 g/dl (3.5-5.0); Albumin/Globulin Ratio 1.5 (1.1-1.8); Alkaline Phosphatase 41 U/L (38-126); Anion Gap 10.5 mEq/L (5-15); Aspartate Amino Transferase 40 U/L (17-59); Bilirubin,Total 0.3 mg/dl (0.2-1.3); Blood Urea Nitrogen 18 mg/dl (9-20); Calcium 7.6 mg/dl (8.4-10.2); Carbon Dioxide 19 mmol/L (22.0-30.0); Chloride 109 mmol/L (98-107); Estimated Glomerular Filt Rate 32 ml/min (>60); GFR (African American) 39 ML/MIN (>60); Globulin 2.4 g/dL (1.3-3.2); Glucose 159 mg/dl (74-100); Potassium 4.5 mmoL/L (3.5-5.1); Sodium 134 mmol/L (136-145); Total Protein,Serum 6.1 g/dl (6.3-8.2)
[2021-10-20 18:42] LABS: Thyroid Stimulating Hormone 2.27 uIU/mL (0.465-4.68)
== END ==
PROVIDERS: Visit Provider Family Medicine
DX: E11.9 Type 2 diabetes mellitus without complications (principal); Z79.4 Long term (current) use of insulin; Z79.899 Other long term (current) drug therapy
CPT/HCPCS: 80053; 83036; 84443; 85025

== ENCOUNTER → 2022-01-09 14:01 | Outpatient (CLI) | payer MEDICAID, SELFPAY ==
[2022-01-09 13:37] LABS: Basophils % 0.9 % (0.1-2.0); Eosinophils # 0.2 K/mm3 (0.0-0.4); Eosinophils % 4.2 % (0.1-12.0); Hematocrit 26.4 % (42.0-52.0); Hemoglobin 8.8 g/dL (14.1-18.0); Lymphocytes # 1.5 K/mm3 (0.7-4.5); Lymphocytes % 34.5 % (10-50); Mean Corpuscular HGB Conc 33.3 g/dL (31.8-35.4); Mean Corpuscular Hemoglobin 30.6 pg (27.0-31.2); Mean Corpuscular Volume 91.9 fl (80-94); Mean Platelet Volume 7.9 fl (7.4-10.4); Monocytes # 0.2 K/mm3 (0.1-1.0); Monocytes % 4.9 % (1.7-9.3); Neutrophils # 2.5 K/mm3 (1.8-7.8); Neutrophils % 55.5 % (37.0-80.0); Platelet Count 180 K/mm3 (142-424); Red Blood Count 2.87 M/mm3 (4.60-6.20); Red Cell Distribution Width 13.8 % (11.5-17.5); White Blood Count 4.5 K/mm3 (4.8-10.8)
[2022-01-09 13:40] LABS: Alanine Aminotransferase 18 U/L (12-78); Albumin Level 3.6 g/dl (3.5-5.0); Albumin/Globulin Ratio 1.3 (1.1-1.8); Alkaline Phosphatase 34 U/L (38-126); Anion Gap 11.8 mEq/L (5-15); Aspartate Amino Transferase 23 U/L (17-59); Blood Urea Nitrogen 28 mg/dl (9-20); Calcium 8.2 mg/dl (8.4-10.2); Carbon Dioxide 24 mmol/L (22.0-30.0); Chloride 103 mmol/L (98-107); Estimated Glomerular Filt Rate 22 ml/min (>60); GFR (African American) 26 ML/MIN (>60); Globulin 2.8 g/dL (1.3-3.2); Glucose 167 mg/dl (74-100); Potassium 3.8 mmoL/L (3.5-5.1); Sodium 135 mmol/L (136-145); Total Protein,Serum 6.4 g/dl (6.3-8.2)
[2022-01-09 13:48] LABS: Bilirubin,Total < 0.1 mg/dl (0.2-1.3)
[2022-01-09 14:00] LABS: Iron 46 ug/dL (49-181)
[2022-01-09 14:28] LABS: Total Iron Binding Capacity 224 ug/dL (261-462)
== END ==
PROVIDERS: PCP Family Medicine; Visit Provider Family Medicine
DX: R73.9 Hyperglycemia, unspecified (principal)
CPT/HCPCS: 80053; 83540; 83550; 85025

== ENCOUNTER 2022-02-02 02:23 | Inpatient (IN) | payer MEDICAID, SELFPAY ==
[2022-02-02] VITALS (35 sets, daily range): BP systolic 90–151; BP diastolic 62–91; PULSE 69–97; RESP 11–18; TEMP 33.7–37.1; O2SAT 96–100; BMI 13.5; BMI 13.3
--- NOTE | 2022-02-02 03:01 | XR_ITS ---
PROCEDURE INFORMATION: Exam: XR Chest Exam date and time: 02/02/2022 4:03 AM Age: 46 years old Clinical indication: Other: Gen. Weakness TECHNIQUE: Imaging protocol: Radiologic exam of the chest. Views: 1 view. COMPARISON: CR XR CHEST PORTABLE 02/09/2021 5:01 PM FINDINGS: Lungs: Clear. No consolidation. Pleural spaces: No pleural effusion. No pneumothorax. Heart/Mediastinum: Unremarkable. No cardiomegaly. Bones/joints: Unremarkable. IMPRESSION: No acute findings.
[2022-02-02 03:26] LABS: Coronavirus 19, PCR Not Detected (NotDetected); Influenza A, PCR Not Detected (NotDetected); Influenza B, PCR Not Detected (NotDetected); Microscopic, Urine URINE MICROSCOPIC (MICROSCOPIC)
[2022-02-02 03:34] LABS: Basophils % 0.4 % (0.1-2.0); Eosinophils # 0.1 K/mm3 (0.0-0.4); Eosinophils % 1.5 % (0.1-12.0); Hemoglobin 7.5 g/dL (14.1-18.0); Lymphocytes # 1.2 K/mm3 (0.7-4.5); Lymphocytes % 15.1 % (10-50); Mean Corpuscular HGB Conc 34.1 g/dL (31.8-35.4); Mean Corpuscular Hemoglobin 29.7 pg (27.0-31.2); Mean Corpuscular Volume 87.1 fl (80-94); Monocytes # 0.3 K/mm3 (0.1-1.0); Monocytes % 4.3 % (1.7-9.3); Neutrophils % 78.7 % (37.0-80.0); Platelet Count 230 K/mm3 (142-424); Red Blood Count 2.52 M/mm3 (4.60-6.20); Red Cell Distribution Width 14.6 % (11.5-17.5); White Blood Count 7.6 K/mm3 (4.8-10.8)
[2022-02-02 03:34] LABS: Appearance,Urine TURBID (Clear); Blood, Urine 3+ (Negative); Color,Urine RED (Yellow); Glucose,Urine (UA) TRACE (Negative); Ketones,Urine 1+ (Negative); Leukocyte Esterase,Urine 2+ (Negative); Nitrate,Urine POSITIVE (Negative); PH,Urine 6.5 (5.0-8.5); Protein,Urine 3+ (Negative); Specific Gravity, Urine 1.015 (1.005-1.030); Urobilinogen,Urine >=8.0 EU/dl (0.2)
[2022-02-02 03:35] LABS: Bilirubin,Urine Negative (Negative)
[2022-02-02 03:41] LABS: Anion Gap 14.8 mEq/L (5-15); Blood Urea Nitrogen 65 mg/dl (9-20); Carbon Dioxide 18 mmol/L (22.0-30.0); Chloride 103 mmol/L (98-107); Creatinine Clearance Estimated 16 mL/min (50-200); Estimated Glomerular Filt Rate 18 ml/min (>60); GFR (African American) 21 ML/MIN (>60); Glucose 125 mg/dl (74-100); Magnesium 1.9 mg/dl (1.6-2.3); Potassium 3.8 mmoL/L (3.5-5.1); Sodium 132 mmol/L (136-145)
[2022-02-02 03:46] LABS: C-Reactive Protein 5.2 mg/L (0-4)
[2022-02-02 03:46] LABS: Bacteria,Urine 4+ /lpf; RBC,Urine 50-100 #/hpf (0-3)
[2022-02-02 03:47] LABS: Amylase < 30 U/L (30-110); Lipase < 10 U/L (23-300)
--- NOTE | 2022-02-02 03:54 | CT_ITS ---
PROCEDURE INFORMATION: Exam: CT Abdomen And Pelvis Without Contrast Exam date and time: 02/02/2022 3:57 AM Age: 46 years old Clinical indication: Abdominal pain; Additional info: Abdominal pain, blood in catheter TECHNIQUE: Imaging protocol: Computed tomography of the abdomen and pelvis without contrast. Radiation optimization: All CT scans at this facility use at least one of these dose optimization techniques: automated exposure control; mA and/or kV adjustment per patient size (includes targeted exams where dose is matched to clinical indication); or iterative reconstruction. COMPARISON: CT PELVIS WO CON 02/09/2021 6:08 PM FINDINGS: Liver: Unremarkable. No mass. Gallbladder and bile ducts: Gallbladder is mildly distended. No gallbladder wall thickening or biliary duct dilation. Pancreas: Dystrophic calcifications in the pancreas. No inflammatory changes. No ductal dilation. Spleen: Normal. No splenomegaly. Adrenal glands: Normal. No mass. Kidneys and ureters: Unremarkable. No calculi or hydronephrosis. Stomach and bowel: There is a large amount of fecal material throughout the colon. Small bowel is unremarkable. No bowel obstruction. Appendix: No evidence of appendicitis. Intraperitoneal space: No free air. No significant fluid collection. Vasculature: Unremarkable. No abdominal aortic aneurysm. Lymph nodes: Unremarkable. No enlarged lymph nodes. Urinary bladder: Suprapubic Obrien catheter in the urinary bladder. The urinary bladder is diffusely thick-walled. There is large amount of air in the urinary bladder wall. Reproductive: Unremarkable as visualized. Bones/joints: Avascular necrosis in the femoral heads, worse on the left. There are advanced degenerative changes in the spine and pelvis. Soft tissues: Unremarkable. IMPRESSION: 1. Emphysematous cystitis. 2. Chronic pancreatitis. 3. Constipation. 4. Avascular necrosis in the femoral heads.
[2022-02-02 04:00] LABS: Procalcitonin 0.448 ng/mL (0.0-2.0)
--- NOTE | 2022-02-02 04:03 | PC.NURSE ---
advised of patient gfr 18, ct abd and pelvis changed to without contrast per protocol.
[2022-02-02 04:04] LABS: Erythrocyte Sedimentation Rate 66 mm/hr (0-15)
[2022-02-02 04:05] LABS: Troponin I < 0.01 ng/ml (0.00-0.034)
--- NOTE | 2022-02-02 05:37 | HMH.EDNVD ---
ED Disposition Clinical Impression: BOBBY (acute kidney injury), Obrien catheter in place, Cystitis, IVDU (intravenous drug user), Low body mass index (BMI) Diabetes Qualifiers: Diabetes mellitus type: type 1 Diabetes mellitus complication status: with other specified complication Qualified Code(s): E10.69 - Type 1 diabetes mellitus with other specified complication Avascular necrosis of bone of hip Qualifiers: Laterality: unspecified laterality Qualified Code(s): M87.059 - Idiopathic aseptic necrosis of unspecified femur UTI (urinary tract infection) Qualifiers: Urinary tract infection type: acute cystitis Hematuria presence: with hematuria Qualified Code(s): N30.01 - Acute cystitis with hematuria Anemia Qualifiers: Anemia type: unspecified type Qualified Code(s): D64.9 - Anemia, unspecified Disposition: Admitted As Inpatient Condition on Discharge: Serious Instructions: DI for Acute Abdominal Pain Referrals: Ethan Beltran MD [Primary Care Provider] - - Critical Care Critical Care Time: No Attestation: On 02/02/22, the high probability of a clinically significant, sudden or life threatening deterioration of the following system(s) required my full and direct attention, intervention and personal management. The time I documented below is in addition to time spent performing reported procedures but includes the following listed in this critical care notation. Medical Decision Making - Medical Records Medical records reviewed: Yes: I reviewed the patient's medical records. - Lazaro Inquiry Pt receiving controlled substance: No Vital Signs: 02/02/22 02:34 02/02/22 02:56 02/02/22 03:00 Temperature 97.2 F L 97.8 F 96.8 F L Temperature Source Oral Oral Rectal Pulse Rate 72 88 Pulse Rate [Apical] 81 Respiratory Rate 12 18 13 Blood Pressure 98/68 L 105/68 L Blood Pressure [Right Arm] 131/89 Blood Pressure Mean [Right Arm] 103 Blood Pressure Source Blood Pressure Source [Right Arm] Automatic Cuff Blood Pressure Position Blood Pressure Position [Right Arm] Sitting 02 Sat by Pulse Oximetry 96 99 99 Oxygen Delivery Method Room Air Room Air Room Air 02/02/22 03:30 02/02/22 03:45 02/02/22 04:16 Temperature Temperature Source Pulse Rate 78 75 75 Pulse Rate [Apical] Respiratory Rate 12 12 13 Blood Pressure 100/65 L 103/67 L 141/76 H Blood Pressure [Right Arm] Blood Pressure Mean [Right Arm] Blood Pressure Source Automatic Cuff Blood Pressure Source [Right Arm] Blood Pressure Position Sitting Blood Pressure Position [Right Arm] 02 Sat by Pulse Oximetry 100 100 Oxygen Delivery Method Room Air - Lab Data Lab results reviewed: Yes: I reviewed the patient's lab results. Lab Results 02/02/22 03:15: Urine Color Red, Urine Appearance Turbid, Urine pH 6.5, Ur Specific [place] 1.015, Urine Protein 3+, Urine Glucose (UA) Trace, Urine Ketones 1+, Urine Blood 3+, Urine Nitrate Positive, Urine Bilirubin Negative, Urine Urobilinogen >=8.0, Ur Leukocyte Esterase 2+ A, Urine RBC 50-100, Urine WBC 5-10, Urine Bacteria 4+ 02/02/22 03:15: SARS-CoV-2 (PCR) Not detected, Influenza A Untype (PCR) Not detected, Influenza Type B (PCR) Not detected 02/02/22 03:24: WBC 7.6, RBC 2.52 L, Hgb 7.5 L, Hct 22.0 L, MCV 87.1, MCH 29.7, MCHC 34.1, RDW 14.6, Plt Count 230, MPV 7.0 L, Neut % (Auto) 78.7, Lymph % (Auto) 15.1, [place] % (Auto) 4.3, Eos % (Auto) 1.5, Baso % (Auto) 0.4, Neut # (Auto) 6.0, Lymph # (Auto) 1.2, [place] # (Auto) 0.3, Eos # (Auto) 0.1, Baso # (Auto) 0.0, ESR 66 H 02/02/22 03:24: Sodium 132 L, Potassium 3.8, Chloride 103, Carbon Dioxide 18 L, Anion Gap 14.8, BUN 65 H, Creatinine 3.70 H, Estimated Creat Clear 16, Estimated GFR 18 L*, Est GFR ( Amer) 21 L, Glucose 125 H, Calcium 8.0 L, Magnesium 1.9, Troponin I < 0.01, C-Reactive Protein 5.2 H, Amylase < 30 L, Lipase < 10 L, Procalcitonin 0.448 02/02/22 03:24: Lactate 1.0 Result diagrams: 02/02/22 03:24 02/02/22 03:24
--- NOTE | 2022-02-02 05:54 | PC.NURSE ---
Notified malt house operator of pt admission and need for bed assignment.
--- NOTE | 2022-02-02 06:07 | PC.NURSE ---
PT AWARE OF PLAN TO ADMIT. BLANKETS GIVEN FOR COMFORT.
--- NOTE | 2022-02-02 06:43 | PC.NURSE ---
PT arrived via wheel chair at this time
--- NOTE | 2022-02-02 07:14 | PC.NURSE ---
Rectal temp on patient read 92.6 after arriving to floor. Increased room temp, placed garland hugger on patient with multiple warm blankets on top. Reported to tech that he will be on every hour rectal temp.
--- NOTE | 2022-02-02 07:34 | P.CONPHA_ITS ---
[facility] Pharm[facility] VTE Monitoring - Patient Demographics Admission date: 02/02/22 Report Date: 02/02/22 Time: 07:34 Allergies/Adverse Reactions: Patient Allergies Penicillins Allergy (Severe, Verified 01/09/22 10:09) Hives Height: 1.83 m Weight: 44.565 kg Patient Problems: Current Active Problems Cystitis (Acute) UTI (urinary tract infection) (Acute) IVDU (intravenous drug user) (Acute) Low body mass index (Chronic) BOBBY (acute kidney injury) (Acute) Avascular necrosis of bone of hip (Acute) Anemia (Chronic) Diabetes (Chronic) Obrien catheter in place (Chronic) - VTE Risk Labs: VTE Related Lab Results Hgb 7.5 g/dL (14.1-18.0) L 02/02/22 03:24 Hct 22.0 % (42.0-52.0) L 02/02/22 03:24 Plt Count 230 K/mm3 (142-424) 02/02/22 03:24 BUN 65 mg/dl (9-20) H 02/02/22 03:24 Creatinine 3.70 mg/dl (0.66-1.25) H 02/02/22 03:24 Estimated Creat Clear 16 mL/min (50-200) 02/02/22 03:24 Clinical Trial Participant: No - Prophylaxis VTE Prophylaxis Ordered?: Yes Types of VTE Prophylaxis: TEDS Knee High
--- NOTE | 2022-02-02 07:37 | HMH.PHAINT ---
verified oral medications using list from [facility]
--- NOTE | 2022-02-02 10:15 | PC.NURSE ---
pt is refusing rectal temps.
--- NOTE | 2022-02-02 10:25 | HMH.HP ---
*Admission Date: 02/02/22 *Chief complaint: Nausea, hematuria *History of present illness: Pt c/o weakness, abdominal pain and headache for prior two days. Also is c/o blood coming from his urostomy. States that he has been bleeding from his urostomy for the prior two days as well. Denies fever, nausa, vomiting or diarrhea. Does c/o dimjinished appetite. Temperature 95.3 rectally, heart rate 97, creatinine 3.7, and diagnosis of urinary tract infection [facility] History I have reviewed the patient's past medical history: Yes Medical History: Reports:: Anxiety, Depression, Diabetes Mellitus Type 2 Denies:: Cancer, Diabetes Mellitus Type 1, Internal Pacemaker, MRSA, Seizures *Have you ever received a pneumonia vaccine?: No *Have you received a flu vaccine this season?: Yes Other Surgeries: Yes: Colonoscopy, Other. No: Pacemaker Amputation: No Fractures: No - *Social History Last grade of school completed: High school graduate Smoking Status: Never smoker Tobacco Type: smokeless tobacco # Packs/Day (cigarettes): 0 Alcohol Intake: former Alcohol Intake Frequency:: 0-2 drinks per day Substance Use Type: IV drugs Last Used Substance: unknown *Occupational Status:: disabled Housing: apartment Household Members: none *Travel in the last 8 weeks: None - Psychiatric History Pschychiatric History:: Reports:: Anxiety, Depression Family Hx:: No significant family history Review of Systems - Review of Systems Review of systems:: pertinent systems reviewed and negative unless documented below - Constitutional Reports fatigue, Reports malaise - Eyes Denies blurry vision, Denies double vision - ENT Reports headache(s), Denies dizziness, Denies mouth pain - *Cardiovascular Denies chest pain, Denies chest pain with activity - *Respiratory Denies chest congestion, Denies cough - *Gastrointestinal Reports nausea, Denies abdominal pain, Denies vomiting blood - *Genitourinary Reports blood in urine - *Musculoskeletal Reports abnormal walking, Reports muscle weakness, Denies numbness - Integumentary/Breasts Denies change in skin color, Denies yellowing of the skin - *Neurologic Reports abnormal walking, Reports weakness, Denies abnormal speech, Denies confusion, Denies seizure-like activity - Psychiatric Denies behavioral changes, Denies confusion - Endocrine Denies cold intolerance, Denies increased urination - Hematologic/Lymphatic Denies easy bleeding, Denies easy bruising - Allergic/Immunologic Denies GI upset with certain foods, Denies itchy eyes Meds Home Medications Medication Instructions Recorded Confirmed Type gabapentin 800 mg tablet 800 mg PO TID #90 tab 01/09/22 02/02/22 Rx hydrocodone 5 mg-acetaminophen 325 1 tab PO DAILY PRN #30 tab 01/09/22 02/02/22 Rx mg tablet insulin glargine 100 unit/mL (3 15 unit SQ HS #15 ml 01/09/22 02/02/22 Rx mL) subcutaneous pen omeprazole 40 mg capsule,delayed 40 mg PO DAILY #90 cap 01/09/22 02/02/22 Rx release Dulaglutide [Trulicity] 0.75 mg SQ WEEKLY 02/02/22 02/02/22 History Fluoxetine HCl [Prozac] 20 mg PO DAILY 02/02/22 02/02/22 History Insulin Lispro 1 sliding scale dose SQ 02/02/22 02/02/22 History USEASDIRECTD Quetiapine Fumarate 200 mg PO HS 02/02/22 02/02/22 History lisinopriL [Lisinopril] 2.5 mg PO DAILY 02/02/22 02/02/22 History Allergies Allergy/AdvReac Type Severity Reaction Status Date / Time Penicillins Allergy Severe Hives Verified 01/09/22 10:09 Exam Vital signs and Labs for Last 24 Hours: Temp Pulse Resp BP Pulse Ox 95.5 F L 97 H 17 136/73 100 02/02/22 10:00 02/02/22 08:00 02/02/22 08:00 02/02/22 08:00 02/02/22 08:00 Laboratory Results - last 24 hr 02/02/22 03:15: Urine Color Red, Urine Appearance Turbid, Urine pH 6.5, Ur Specific [place] 1.015, Urine Protein 3+, Urine Glucose (UA) Trace, Urine Ketones 1+, Urine Blood 3+, Urine Nitrate Positive, Urine Bilirubin Negative, Urine Uro
[2022-02-02 11:58] LABS: POC Glucose,Bedside 202 (70-110)
--- NOTE | 2022-02-02 13:30 | DIET.NUTRFU ---
RD saw patient today after lunch, he was unable to eat pork chop due to lack of teeth. Was able to consume 1/2 of tuna salad sandwich and requested some ice cream. He agreed to try Mechanical soft with chopped meats with gravy to help intake. Intake at home was also poor, lives alone and unable to cook for self, eats a lot of sandwiches and microwaveable foods 1-2 meals/day. Reports low BS at times d/t insulin dose with poor intake. Denies any weight loss. He does trigger for PCM, provider also noted. Patient interested in meals on wheels and home health upon discharge, will let social worker palliative care know. See nutritional assessment for further information.
--- NOTE | 2022-02-02 15:07 | PC.NURSE ---
patient sitting up in bed asleep with blanket over head, during rounding.
[2022-02-02 16:46] LABS: POC Glucose,Bedside 170 (70-110)
--- NOTE | 2022-02-02 19:40 | PC.NURSE ---
Pt has refused bath today. Pt is getting blood at this time per tar. VSS. CB in reach. Remains on RA.
[2022-02-03] VITALS (13 sets, daily range): BP systolic 94–117; BP diastolic 64–75; PULSE 73–88; RESP 16–20; TEMP 35.3–37.1; O2SAT 94–98; BMI 13.5
[2022-02-03 00:53] LABS: POC Glucose,Bedside 215 (70-110)
[2022-02-03 02:05] LABS: Hemoglobin 8.6 g/dL (14.1-18.0)
--- NOTE | 2022-02-03 04:41 | PC.NURSE ---
Patient rested throughout night. Patient tolerated blood transfusion well. Subpubic catheter draining dark red hematuria. Medicated patient for pain per MAR. Blood pressures have been steady this shift. No complaints at this time.
[2022-02-03 07:13] LABS: Anion Gap 10.2 mEq/L (5-15); Blood Urea Nitrogen 58 mg/dl (9-20); Calcium 7.3 mg/dl (8.4-10.2); Carbon Dioxide 17 mmol/L (22.0-30.0); Chloride 110 mmol/L (98-107); Creatinine Clearance Estimated 20 mL/min (50-200); Estimated Glomerular Filt Rate 23 ml/min (>60); GFR (African American) 28 ML/MIN (>60); Glucose 131 mg/dl (74-100); Magnesium 1.8 mg/dl (1.6-2.3); Potassium 4.2 mmoL/L (3.5-5.1); Sodium 133 mmol/L (136-145)
[2022-02-03 07:57] LABS: Basophils % 0.4 % (0.1-2.0); Eosinophils # 0.1 K/mm3 (0.0-0.4); Eosinophils % 3.1 % (0.1-12.0); Hematocrit 26.1 % (42.0-52.0); Lymphocytes # 1.1 K/mm3 (0.7-4.5); Lymphocytes % 30.4 % (10-50); Mean Corpuscular HGB Conc 34.4 g/dL (31.8-35.4); Mean Corpuscular Hemoglobin 29.7 pg (27.0-31.2); Mean Corpuscular Volume 86.3 fl (80-94); Mean Platelet Volume 6.5 fl (7.4-10.4); Monocytes # 0.2 K/mm3 (0.1-1.0); Monocytes % 4.7 % (1.7-9.3); Neutrophils # 2.2 K/mm3 (1.8-7.8); Neutrophils % 61.4 % (37.0-80.0); Platelet Count 125 K/mm3 (142-424); Red Blood Count 3.03 M/mm3 (4.60-6.20); Red Cell Distribution Width 14.6 % (11.5-17.5); White Blood Count 3.6 K/mm3 (4.8-10.8)
--- NOTE | 2022-02-03 08:09 | PC.NURSE ---
NICHOLAS CAME AND TOLD THIS RN THAT SHE COULD NOT OBTAIN AN ORAL TEMP ON PT. THIS RN ATTEMPED TO OBTAIN AN ORAL TEMP. A RECTAL TEMP WAS OBTAINED AND IT WAS 95.6. JESSICA MEREDITH APPLIED. PT STATED, I WILL NOT BE DOING THESE ALL DAY .
--- NOTE | 2022-02-03 08:20 | HMH.ACPN2 ---
Internal Medicine - PN: Subj *Date: 02/03/22 *Time: 15:41 Interval history: 46-year-old male patient resting quietly in bed with eyes closed, awakens to verbal stimuli. He did receive 2 units of packed blood cells yesterday this morning hemoglobin is 8.6. He does report generalized pain, still has hematuria. Exam Vital signs and Labs for Last 24 Hours: Temp Pulse Resp BP Pulse Ox 95.6 F L 75 16 94/64 L 98 02/03/22 08:00 02/03/22 03:43 02/03/22 03:43 02/03/22 03:43 02/03/22 03:43 Laboratory Results - last 24 hr 02/02/22 11:47: POC Glucose 202 H 02/02/22 13:10: Blood Type A Positive, Antibody Screen Negative, Crossmatch (AHG) See Detail 02/02/22 15:36: POC Glucose 170 H 02/02/22 20:53: POC Glucose 215 H 02/03/22 01:40: Hgb 8.6 L D, Hct 24.0 L 02/03/22 06:30: WBC 3.6 L D, RBC 3.03 L, Hgb 9.0 L, Hct 26.1 L, MCV 86.3, MCH 29.7, MCHC 34.4, RDW 14.6, Plt Count 125 L D, MPV 6.5 L, Neut % (Auto) 61.4, Lymph % (Auto) 30.4, [place] % (Auto) 4.7, Eos % (Auto) 3.1, Baso % (Auto) 0.4, Neut # (Auto) 2.2, Lymph # (Auto) 1.1, [place] # (Auto) 0.2, Eos # (Auto) 0.1, Baso # (Auto) 0.0 02/03/22 06:30: Sodium 133 L, Potassium 4.2, Chloride 110 H, Carbon Dioxide 17 L, Anion Gap 10.2, BUN 58 H, Creatinine 2.90 H D, Estimated Creat Clear 20, Estimated GFR 23 L, Est GFR ( Amer) 28 L D, Glucose 131 H, Calcium 7.3 L, Magnesium 1.8 I & O for Last 24 hours: Intake & Output 01/31/22 02/01/22 02/02/22 02/03/22 23:59 23:59 23:59 23:59 Intake Total 1570 / 1570 250 / 250 Output Total 1100 / 2300 1750 / 1750 Balance 470 / -730 -1500 / -1500 Weight 98 lb 3.808 oz 100 lb 2 oz Microbiology Reports for the Last 24 Hours: Microbiology 02/02/22 03:15 Urine,Catheterized Urine Culture - Preliminary - Constitutional no acute distress, thin, cachectic, chronically ill appearing - *Routine HEENT Exam Head: Present: normocephalic Eye: Present: EOMI ENT: Present: mucous membranes moist - *Routine Neck Exam Present: trachea midline. Absent: tracheal deviation (I really do not know fully quit wearing a mask or) - *Routine Respiratory Exam Present: wheezes. Absent: accessory muscle use - *Routine Cardiovascular Exam Present: RRR - *Routine Abdominal Exam Present: soft, normoactive bowel sounds. Absent: tenderness, firm - *Routine Exam Comments: Suprapubic catheter draining reddish urine - *Routine Extremities Exam Present: pulses intact. Absent: cyanosis, clubbing, edema, calf tenderness - *Routine Skin Exam Present: intact, dry. Absent: cyanosis, erythema - *Routine Neurological Exam Present: alert, oriented X3. Absent: altered mental status - Routine Psychiatric Exam Present: normal affect, normal thought process Assessment and Plan (1) Protein calorie malnutrition Status: Acute Category: Medical Code(s): E46 - Unspecified protein-calorie malnutrition (2) Severe sepsis with acute organ dysfunction Status: Acute Category: Medical Code(s): A41.9 - Sepsis, unspecified organism; R65.20 - Severe sepsis without septic shock (3) Cystitis Status: Acute Category: Medical Code(s): N30.90 - Cystitis, unspecified without hematuria (4) UTI (urinary tract infection) Status: Acute Qualifiers: Urinary tract infection type: acute cystitis Hematuria presence: with hematuria Qualified Code(s): N30.01 - Acute cystitis with hematuria Category: Medical Code(s): N39.0 - Urinary tract infection, site not specified (5) BOBBY (acute kidney injury) Status: Acute Category: Medical Code(s): N17.9 - Acute kidney failure, unspecified (6) Avascular necrosis of bone of hip Status: Acute Qualifiers: Laterality: unspecified laterality Qualified Code(s): M87.059 - Idiopathic aseptic necrosis of unspecified femur Category: Medical Code(s): M87.059 - Idiopathic aseptic necrosis of unspecified femur (7) Anemia Status: Chronic Qualifiers: Anemia type:
--- NOTE | 2022-02-03 08:22 | PC.NURSE ---
PT STATED TO THIS RN THAT HE WOULD NOT BE DOING THESE ALL DAY IN REGARDS TO RECTAL TEMPERATURES.
--- NOTE | 2022-02-03 09:00 | PC.NURSE ---
0900-PT WOULD NOT LET THIS RN CHECK RECTAL TEMPERATURE PER JESSICA MEREDITH PROTOCOL. ORAL TEMP OBTAINED 97.7
--- NOTE | 2022-02-03 11:18 | PC.NURSE ---
Refusal of rectal temperature Patients nurse had asked for a rectal tmeperature. Patient refused. 1119 02/03/2022 Eugenia Eugene SRNA
--- NOTE | 2022-02-03 11:56 | PC.NURSE ---
PT REQUESTED TO HAVE HIS MORPHINE CHANGED FROM Q6HRS TO Q4HRS. THIS RN CALLED AND LEFT A MESSAGE WITH MD WILLETT AT THIS TIME.
--- NOTE | 2022-02-03 12:56 | PC.NURSE ---
ROUNDED ON PATIENT. PATIENT STATED HE WAS OKAY BUT IN PAIN. REQUESTING HIS PAIN MEDICATION BE SWITCHED TO EVERY 4 HOURS INSTEAD OF 6. PRIMARY NURSE DID CALL MD WHO APPROVED THE CHANGE OF FREQUENCY IN MEDICATION AND THIS WAS RELAYED TO THE PATIENT. ALSO REQUESTED DIET ZAIRE MIST, WHICH WAS OBTAINED FOR HIM. NO QUESTIONS AT THIS TIME OR CONCERNS.
--- NOTE | 2022-02-03 13:50 | DIET.NUTRFU ---
RD saw patient after noon, report small portions consumed on 02/03. Afternoon his intake he took less than a couple bites of meat. Supplements were started, he was not sure if he tried it, When asked if could replace me he decline
--- NOTE | 2022-02-03 16:38 | PC.NURSE ---
HE IS AOX4, ABLE TO MAKE NEEDS KNOWN TO STAFF, HE HAS SPENT ALL SHIFT IN BED. DOES NOT FEEL LIKE DOING MUCH OF ANYTHING. JESSICA HUGGER HAS REMAINED IN PLACE ALL SHIFT, HE IS STILL REFUSING RECTAL TEMPERATURE CHECKS. BLOODY URINE NOTED IN YATES BAG. HAS BEEN MEDICTED FOR PAIN THIS SHIFT WITH MORPHINE WITH GOOD EFFECTIVENESS.
[2022-02-03 16:58] LABS: POC Glucose,Bedside 155 (70-110)
[2022-02-03 16:58] LABS: POC Glucose,Bedside 128 (70-110)
[2022-02-03 16:58] LABS: POC Glucose,Bedside 136 (70-110)
--- NOTE | 2022-02-03 17:22 | PC.NURSE ---
patient has been provided with a new ice pitcher and trash has been taken out
[2022-02-03 17:40] LABS: Microscopic, Urine URINE MICROSCOPIC (MICROSCOPIC)
[2022-02-03 18:48] LABS: Appearance,Urine TURBID (Clear); Blood, Urine 3+ (Negative); Color,Urine RED (Yellow); Glucose,Urine (UA) TRACE (Negative); Ketones,Urine 1+ (Negative); Leukocyte Esterase,Urine 2+ (Negative); Nitrate,Urine POSITIVE (Negative); PH,Urine 6.5 (5.0-8.5); Protein,Urine 3+ (Negative); Specific Gravity, Urine 1.015 (1.005-1.030)
[2022-02-03 19:05] LABS: Bilirubin,Urine Negative (Negative)
[2022-02-03 19:27] LABS: Bacteria,Urine 2+ /lpf; RBC,Urine 50-100 #/hpf (0-3)
--- NOTE | 2022-02-04 04:28 | PC.NURSE ---
Subpubic catheter draining dark red hematuria. Medicated patient for pain per MAR throughout night. Blood pressures have been steady this shift. No complaints at this time. Patient refused bath this shift.
[2022-02-04 04:59] VITALS: BP 89/59; PULSE 81; RESP 81; TEMP 36.4; O2SAT 98
[2022-02-04 05:36] VITALS: BMI 15.1
[2022-02-04 06:14] LABS: POC Glucose,Bedside 117 (70-110)
[2022-02-04 08:00] VITALS: BP 94/63; PULSE 73; RESP 17; TEMP 36.4; O2SAT 99
--- NOTE | 2022-02-04 09:46 | HMH.ACPN2 ---
Internal Medicine - PN: Subj *Date: 02/05/22 *Time: 04:17 Interval history: pt with feeling some better - still with hematuria and grsam neg rods in urine Exam Vital signs and Labs for Last 24 Hours: Temp Pulse Resp BP Pulse Ox 97.6 F 73 17 94/63 L 99 02/04/22 08:00 02/04/22 08:00 02/04/22 08:00 02/04/22 08:00 02/04/22 08:00 Laboratory Results - last 24 hr 02/03/22 05:19: POC Glucose 128 H 02/03/22 11:04: POC Glucose 155 H 02/03/22 16:47: POC Glucose 136 H 02/03/22 17:32: Urine Color Red, Urine Appearance Turbid, Urine pH 6.5, Ur Specific [place] 1.015, Urine Protein 3+, Urine Glucose (UA) Trace, Urine Ketones 1+, Urine Blood 3+, Urine Nitrate Positive, Urine Bilirubin Negative, Urine Urobilinogen 4.0, Ur Leukocyte Esterase 2+ A, Urine RBC 50-100, Urine WBC 10-20, Ur Squamous Epith Cells None, Urine Bacteria 2+ 02/04/22 05:53: POC Glucose 117 H I & O for Last 24 hours: Intake & Output 02/01/22 02/02/22 02/03/22 02/04/22 11:59 11:59 11:59 11:59 Intake Total 480 / 480 1820 / 1820 2532 / 2532 Output Total 800 / 800 2200 / 2200 800 / 800 Balance -320 / -320 -380 / -380 1732 / 1732 Weight 98 lb 3.984 oz 100 lb 2 oz 112 lb Microbiology Reports for the Last 24 Hours: Microbiology 02/02/22 03:24 Blood Blood Culture - Preliminary NO GROWTH AFTER 48 HOURS 02/02/22 03:24 Blood Blood Culture - Preliminary NO GROWTH AFTER 48 HOURS 02/02/22 03:15 Urine,Catheterized Urine Culture - Preliminary - Constitutional cachectic - *Routine HEENT Exam Head: Present: normocephalic Eye: Present: EOMI, PERRL ENT: Present: mucous membranes dry - *Routine Neck Exam Present: supple - *Routine Respiratory Exam Present: decreased breath sounds - *Routine Cardiovascular Exam Present: RRR, murmur - *Routine Abdominal Exam Present: soft - *Routine Extremities Exam Absent: calf tenderness - *Routine Skin Exam Present: intact - *Routine Neurological Exam Present: alert, CN II-XII intact - Routine Psychiatric Exam Present: cooperative Assessment and Plan (1) Protein calorie malnutrition Status: Acute Category: Medical Code(s): E46 - Unspecified protein-calorie malnutrition (2) Severe sepsis with acute organ dysfunction Status: Acute Category: Medical Code(s): A41.9 - Sepsis, unspecified organism; R65.20 - Severe sepsis without septic shock (3) Cystitis Status: Acute Category: Medical Code(s): N30.90 - Cystitis, unspecified without hematuria (4) UTI (urinary tract infection) Status: Acute Qualifiers: Urinary tract infection type: acute cystitis Hematuria presence: with hematuria Qualified Code(s): N30.01 - Acute cystitis with hematuria Category: Medical Code(s): N39.0 - Urinary tract infection, site not specified (5) BOBBY (acute kidney injury) Status: Acute Category: Medical Code(s): N17.9 - Acute kidney failure, unspecified (6) Avascular necrosis of bone of hip Status: Acute Qualifiers: Laterality: unspecified laterality Qualified Code(s): M87.059 - Idiopathic aseptic necrosis of unspecified femur Category: Medical Code(s): M87.059 - Idiopathic aseptic necrosis of unspecified femur (7) Anemia Status: Chronic Qualifiers: Anemia type: unspecified type Qualified Code(s): D64.9 - Anemia, unspecified Category: Medical Code(s): D64.9 - Anemia, unspecified
[2022-02-04 09:47] LABS: Anion Gap 8.5 mEq/L (5-15); Blood Urea Nitrogen 48 mg/dl (9-20); Calcium 6.9 mg/dl (8.4-10.2); Carbon Dioxide 17 mmol/L (22.0-30.0); Chloride 113 mmol/L (98-107); Creatinine Clearance Estimated 25 mL/min (50-200); Estimated Glomerular Filt Rate 27 ml/min (>60); GFR (African American) 32 ML/MIN (>60); Glucose 153 mg/dl (74-100); Potassium 4.5 mmoL/L (3.5-5.1); Sodium 134 mmol/L (136-145)
[2022-02-04 12:03] LABS: POC Glucose,Bedside 176 (70-110)
[2022-02-04 16:00] VITALS: BP 110/70; PULSE 86; RESP 16; TEMP 36.6; O2SAT 100
[2022-02-04 16:23] LABS: POC Glucose,Bedside 127 (70-110)
--- NOTE | 2022-02-04 18:19 | PC.NURSE ---
PT IS ALERT AND ORIENTED X4. HE HAS BEEN MEDICATED PER MAR FOR PAIN. SUPRAPUBIC CATHETER IN PLACE DRAINING DARK RED/BLACK URINE. LUNG SOUNDS ARE CLEAR BILATERALLY. BELLY IS SOFT AND TENDER TO TOUCH. TEMPERATURE HAS BEEN STABLE THIS SHIFT.
[2022-02-04 19:40] LABS: POC Glucose,Bedside 242 (70-110)
[2022-02-04 20:00] VITALS: BP 122/68; PULSE 96; RESP 16; TEMP 36.4; O2SAT 99
[2022-02-04 21:30] LABS: POC Glucose,Bedside 259 (70-110)
--- NOTE | 2022-02-05 03:43 | PC.NURSE ---
Patient receiving morphine 2mg Q2hrs per mar. PAtient states he is having abd pain. Dark red hematuria noted in patel. VSS.
[2022-02-05 04:00] VITALS: BP 97/61; PULSE 92; RESP 17; TEMP 36.6; O2SAT 100
[2022-02-05 05:00] VITALS: BMI 15.1
[2022-02-05 08:00] VITALS: BP 103/62; PULSE 92; RESP 16; TEMP 36.5; O2SAT 100
[2022-02-05 09:54] LABS: Basophils % 0.8 % (0.1-2.0); Eosinophils # 0.1 K/mm3 (0.0-0.4); Eosinophils % 3.1 % (0.1-12.0); Hematocrit 23.6 % (42.0-52.0); Hemoglobin 7.4 g/dL (14.1-18.0); Lymphocytes % 26.6 % (10-50); Mean Corpuscular HGB Conc 31.3 g/dL (31.8-35.4); Mean Corpuscular Hemoglobin 30.2 pg (27.0-31.2); Mean Corpuscular Volume 96.5 fl (80-94); Mean Platelet Volume 7.9 fl (7.4-10.4); Monocytes # 0.2 K/mm3 (0.1-1.0); Monocytes % 4.9 % (1.7-9.3); Neutrophils # 2.4 K/mm3 (1.8-7.8); Neutrophils % 64.6 % (37.0-80.0); Platelet Count 95 K/mm3 (142-424); Red Blood Count 2.45 M/mm3 (4.60-6.20); Red Cell Distribution Width 15.6 % (11.5-17.5); White Blood Count 3.7 K/mm3 (4.8-10.8)
[2022-02-05 10:07] LABS: Chloride 116 mmol/L (98-107); Sodium 133 mmol/L (136-145)
[2022-02-05 10:08] LABS: Potassium 4.1 mmoL/L (3.5-5.1)
[2022-02-05 10:10] LABS: Anion Gap 9.1 mEq/L (5-15); Blood Urea Nitrogen 38 mg/dl (9-20); Carbon Dioxide 12 mmol/L (22.0-30.0); Creatinine Clearance Estimated 27 mL/min (50-200); Estimated Glomerular Filt Rate 29 ml/min (>60); GFR (African American) 35 ML/MIN (>60)
[2022-02-05 10:11] LABS: Calcium 6.6 mg/dl (8.4-10.2); Glucose 157 mg/dl (74-100)
--- NOTE | 2022-02-05 11:00 | HMH.ACPN2 ---
Internal Medicine - PN: La *Date: 02/06/22 *Time: 07:59 Interval history: pt with some improvement - less hematuria - Exam Vital signs and Labs for Last 24 Hours: Temp Pulse Resp BP Pulse Ox 97.7 F 92 H 16 103/62 L 100 02/05/22 08:00 02/05/22 08:00 02/05/22 08:00 02/05/22 08:00 02/05/22 08:00 Laboratory Results - last 24 hr 02/02/22 03:15: Urine Color Red, Urine Appearance Turbid, Urine pH 6.5, Ur Specific [place] 1.015, Urine Protein 3+, Urine Glucose (UA) Trace, Urine Ketones 1+, Urine Blood 3+, Urine Nitrate Positive, Urine Bilirubin Negative, Urine Urobilinogen >=8.0, Ur Leukocyte Esterase 2+ A, Urine RBC 50-100, Urine WBC 5-10, Urine Bacteria 4+ 02/03/22 20:40: POC Glucose 242 H 02/04/22 11:55: POC Glucose 176 H 02/04/22 16:14: POC Glucose 127 H 02/04/22 20:07: POC Glucose 259 H 02/05/22 09:36: Sodium 133 L, Potassium 4.1, Chloride 116 H, Carbon Dioxide 12 L, Anion Gap 9.1, BUN 38 H, Creatinine 2.40 H, Estimated Creat Clear 27, Estimated GFR 29 L, Est GFR ( Amer) 35 L, Glucose 157 H, Calcium 6.6 L 02/05/22 09:36: WBC 3.7 L, RBC 2.45 L, Hgb 7.4 L, Hct 23.6 L, MCV 96.5 H, MCH 30.2, MCHC 31.3 L, RDW 15.6, Plt Count 95 L, MPV 7.9, Neut % (Auto) 64.6, Lymph % (Auto) 26.6, [place] % (Auto) 4.9, Eos % (Auto) 3.1, Baso % (Auto) 0.8, Neut # (Auto) 2.4, Lymph # (Auto) 1.0, [place] # (Auto) 0.2, Eos # (Auto) 0.1, Baso # (Auto) 0.0 I & O for Last 24 hours: Intake & Output 06/02/03/22 02/04/22 02/05/22 11:59 11:59 11:59 11:59 Intake Total 480 / 480 1820 / 1820 2532 / 2532 3336 / 3336 Output Total 800 / 800 2200 / 2200 800 / 800 1800 / 1800 Balance -320 / -320 -380 / -380 1732 / 1732 1536 / 1536 Weight 98 lb 3.984 oz 100 lb 2 oz 112 lb 111 lb 15.988 oz Microbiology Reports for the Last 24 Hours: Microbiology 02/03/22 09:43 Blood Blood Culture - Preliminary NO GROWTH AFTER 48 HOURS 02/03/22 09:43 Blood Blood Culture - Preliminary NO GROWTH AFTER 48 HOURS 02/02/22 03:15 Urine,Catheterized Urine Culture - Final Escherichia coli 02/03/22 17:32 Urine,Clean Catch Urine Culture - Preliminary NO GROWTH AFTER 24 HOURS - Constitutional no acute distress, cachectic - *Routine HEENT Exam Head: Present: normocephalic Eye: Present: EOMI, PERRL ENT: Present: mucous membranes dry - *Routine Neck Exam Absent: JVD - *Routine Respiratory Exam Present: decreased breath sounds - *Routine Cardiovascular Exam Present: RRR - *Routine Abdominal Exam Present: soft - *Routine Extremities Exam Absent: calf tenderness - *Routine Skin Exam Absent: erythema - *Routine Neurological Exam Present: alert, CN II-XII intact - Routine Psychiatric Exam Present: cooperative Assessment and Plan (1) Protein calorie malnutrition Status: Acute Category: Medical Code(s): E46 - Unspecified protein-calorie malnutrition (2) Severe sepsis with acute organ dysfunction Status: Acute Category: Medical Code(s): A41.9 - Sepsis, unspecified organism; R65.20 - Severe sepsis without septic shock (3) Cystitis Status: Acute Category: Medical Code(s): N30.90 - Cystitis, unspecified without hematuria (4) UTI (urinary tract infection) Status: Acute Qualifiers: Urinary tract infection type: acute cystitis Hematuria presence: with hematuria Qualified Code(s): N30.01 - Acute cystitis with hematuria Category: Medical Code(s): N39.0 - Urinary tract infection, site not specified (5) BOBBY (acute kidney injury) Status: Acute Category: Medical Code(s): N17.9 - Acute kidney failure, unspecified (6) Avascular necrosis of bone of hip Status: Acute Qualifiers: Laterality: unspecified laterality Qualified Code(s): M87.059 - Idiopathic aseptic necrosis of unspecified femur Category: Medical Code(s): M87.059 - Idiopathic aseptic necrosis of unspecified
[2022-02-05 11:39] LABS: POC Glucose,Bedside 147 (70-110)
[2022-02-05 11:39] LABS: POC Glucose,Bedside 173 (70-110)
--- NOTE | 2022-02-05 14:50 | PC.NURSE ---
Pt states pain is 8/10. Called for pain med at earlier time and this RN came in to find pt was asleep. Educated pt. Will administer prn morphine @ this time per oct.
--- NOTE | 2022-02-05 15:30 | PC.NURSE ---
Addendum entered by Cade Moore RN 02/05/22 18:52: Yun[place]* No acute changes. CB in reach at this time. Pt resting in bed. Original Note: Spoke w/ Dr. Witt in re to labs and hgb of 7.4, and he ordered for a repeat cbc in the am. Noted. This RN did assist pt with full shower and bed linens were changed.
[2022-02-05 15:57] VITALS: BP 123/73; PULSE 90; RESP 16; TEMP 36.5; O2SAT 100
[2022-02-05 16:40] LABS: POC Glucose,Bedside 160 (70-110)
[2022-02-05 20:00] VITALS: BP 110/68; PULSE 89; RESP 17; TEMP 36.5; O2SAT 100
[2022-02-05 21:15] LABS: POC Glucose,Bedside 139 (70-110)
[2022-02-06 04:00] VITALS: BP 103/60; PULSE 90; RESP 17; TEMP 36.7; O2SAT 99
[2022-02-06 05:00] VITALS: BMI 14.9
[2022-02-06 05:57] LABS: POC Glucose,Bedside 135 (70-110)
--- NOTE | 2022-02-06 06:12 | PC.NURSE ---
Pt a+o. Pt has c/o abdominal pain multiple times t/o shift. PRN Morphine 2mg administered. Pt also c/o pinched nerve in his neck and asked for a lidocaine patch. MD instrumentation manager ordered 5% Lidocaine patch ONCE. Read back, verified and carried out. Pt urine has been dark red with thick sediment and clots noted. Call light within reach.
[2022-02-06 06:23] LABS: Basophils % 0.6 % (0.1-2.0); Eosinophils # 0.2 K/mm3 (0.0-0.4); Eosinophils % 3.7 % (0.1-12.0); Hemoglobin 7.8 g/dL (14.1-18.0); Lymphocytes # 0.8 K/mm3 (0.7-4.5); Lymphocytes % 18.4 % (10-50); Mean Corpuscular HGB Conc 29.1 g/dL (31.8-35.4); Mean Corpuscular Hemoglobin 28.8 pg (27.0-31.2); Mean Corpuscular Volume 99.2 fl (80-94); Mean Platelet Volume 8.2 fl (7.4-10.4); Monocytes # 0.1 K/mm3 (0.1-1.0); Monocytes % 3.1 % (1.7-9.3); Neutrophils # 3.1 K/mm3 (1.8-7.8); Neutrophils % 74.1 % (37.0-80.0); Platelet Count 122 K/mm3 (142-424); Red Blood Count 2.69 M/mm3 (4.60-6.20); Red Cell Distribution Width 15.8 % (11.5-17.5); White Blood Count 4.2 K/mm3 (4.8-10.8)
[2022-02-06 06:24] LABS: Hematocrit 26.7 % (42.0-52.0)
[2022-02-06 06:27] LABS: Anion Gap 8.4 mEq/L (5-15); Blood Urea Nitrogen 34 mg/dl (9-20); Calcium 6.9 mg/dl (8.4-10.2); Carbon Dioxide 17 mmol/L (22.0-30.0); Chloride 116 mmol/L (98-107); Creatinine Clearance Estimated 26 mL/min (50-200); Estimated Glomerular Filt Rate 28 ml/min (>60); GFR (African American) 34 ML/MIN (>60); Glucose 135 mg/dl (74-100); Potassium 4.4 mmoL/L (3.5-5.1); Sodium 137 mmol/L (136-145)
[2022-02-06 07:50] VITALS: BP 114/69; PULSE 92; RESP 16; TEMP 36.4; O2SAT 99
--- NOTE | 2022-02-06 09:21 | HMH.ACPN2 ---
Internal Medicine - PN: Subj *Date: 02/07/22 *Time: 06:41 Interval history: looks better - urine less bloody - has pain in lower abd Exam Vital signs and Labs for Last 24 Hours: Temp Pulse Resp BP Pulse Ox 97.6 F 92 H 16 114/69 99 02/06/22 07:50 02/06/22 07:50 02/06/22 07:50 02/06/22 07:50 02/06/22 07:50 Laboratory Results - last 24 hr 02/03/22 17:32: Urine Color Red, Urine Appearance Turbid, Urine pH 6.5, Ur Specific [place] 1.015, Urine Protein 3+, Urine Glucose (UA) Trace, Urine Ketones 1+, Urine Blood 3+, Urine Nitrate Positive, Urine Bilirubin Negative, Urine Urobilinogen 4.0, Ur Leukocyte Esterase 2+ A, Urine RBC 50-100, Urine WBC 10-20, Ur Squamous Epith Cells None, Urine Bacteria 2+ 02/05/22 05:21: POC Glucose 147 H 02/05/22 09:36: Sodium 133 L, Potassium 4.1, Chloride 116 H, Carbon Dioxide 12 L, Anion Gap 9.1, BUN 38 H, Creatinine 2.40 H, Estimated Creat Clear 27, Estimated GFR 29 L, Est GFR ( Amer) 35 L, Glucose 157 H, Calcium 6.6 L 02/05/22 09:36: WBC 3.7 L, RBC 2.45 L, Hgb 7.4 L, Hct 23.6 L, MCV 96.5 H, MCH 30.2, MCHC 31.3 L, RDW 15.6, Plt Count 95 L, MPV 7.9, Neut % (Auto) 64.6, Lymph % (Auto) 26.6, [place] % (Auto) 4.9, Eos % (Auto) 3.1, Baso % (Auto) 0.8, Neut # (Auto) 2.4, Lymph # (Auto) 1.0, [place] # (Auto) 0.2, Eos # (Auto) 0.1, Baso # (Auto) 0.0 02/05/22 11:20: POC Glucose 173 H 02/05/22 16:31: POC Glucose 160 H 02/05/22 20:05: POC Glucose 139 H 02/06/22 05:39: POC Glucose 135 H 02/06/22 05:45: WBC 4.2 L, RBC 2.69 L, Hgb 7.8 L, Hct 26.7 L, MCV 99.2 H, MCH 28.8, MCHC 29.1 L, RDW 15.8, Plt Count 122 L D, MPV 8.2, Neut % (Auto) 74.1, Lymph % (Auto) 18.4, [place] % (Auto) 3.1, Eos % (Auto) 3.7, Baso % (Auto) 0.6, Neut # (Auto) 3.1, Lymph # (Auto) 0.8, [place] # (Auto) 0.1, Eos # (Auto) 0.2, Baso # (Auto) 0.0 02/06/22 05:45: Sodium 137, Potassium 4.4, Chloride 116 H, Carbon Dioxide 17 L, Anion Gap 8.4, BUN 34 H, Creatinine 2.50 H, Estimated Creat Clear 26, Estimated GFR 28 L, Est GFR ( Amer) 34 L, Glucose 135 H, Calcium 6.9 L I & O for Last 24 hours: Intake & Output 02/03/22 02/04/22 02/05/22 02/06/22 11:59 11:59 11:59 11:59 Intake Total 1820 / 1820 2532 / 2532 5120 / 5120 720 / 720 Output Total 2200 / 2200 800 / 800 1800 / 1800 2300 / 2300 Balance -380 / -380 1732 / 1732 3320 / 3320 -1580 / -1580 Weight 100 lb 2 oz 112 lb 111 lb 15.988 oz 110 lb 3.698 oz Microbiology Reports for the Last 24 Hours: Microbiology 02/03/22 17:32 Urine,Clean Catch Urine Culture - Preliminary Gram Negative Rods 02/03/22 09:43 Blood Blood Culture - Preliminary NO GROWTH AFTER 48 HOURS 02/03/22 09:43 Blood Blood Culture - Preliminary NO GROWTH AFTER 48 HOURS 02/02/22 03:15 Urine,Catheterized Urine Culture - Final Escherichia coli - Constitutional no acute distress, cachectic - *Routine HEENT Exam Head: Present: normocephalic Eye: Present: EOMI, PERRL ENT: Present: mucous membranes dry - *Routine Neck Exam Absent: JVD - *Routine Respiratory Exam Present: decreased breath sounds - *Routine Cardiovascular Exam Present: RRR, murmur - *Routine Abdominal Exam Present: soft - *Routine Extremities Exam Absent: calf tenderness - *Routine Skin Exam Present: intact - *Routine Neurological Exam Present: alert, CN II-XII intact - Routine Psychiatric Exam Present: normal affect Assessment and Plan (1) Protein calorie malnutrition Status: Acute Category: Medical Code(s): E46 - Unspecified protein-calorie malnutrition (2) Severe sepsis with acute organ dysfunction Status: Acute Category: Medical Code(s): A41.9 - Sepsis, unspecified organism; R65.20 - Severe sepsis without septic shock (3) Cystitis Status: Acute Category: Medical Code(s): N30.90 - Cystitis, unspecified without hematuria (4) UTI (urinary tract infection) Status: Acute Qualif
[2022-02-06 12:11] LABS: POC Glucose,Bedside 183 (70-110)
[2022-02-06 16:00] VITALS: BP 103/67; PULSE 86; RESP 16; TEMP 36.6; O2SAT 100
[2022-02-06 17:02] LABS: POC Glucose,Bedside 89 (70-110)
--- NOTE | 2022-02-06 18:27 | PC.NURSE ---
Morphine discontinued by Dr. Carmona, patient still complaining of pain not relieved by hydrocodone alone. Dr. Beltran called and toradol 30 mg q6 for severe pain ordered. Patient still complains of pain after administration despite attempts to bridge medication. Urine still red, turbid, and sediment build-up visible in catheter tube. VS stable and patient remained on room air.
[2022-02-06 19:57] VITALS: BP 129/77; PULSE 88; RESP 18; TEMP 36.8; O2SAT 99
[2022-02-06 20:00] VITALS: O2SAT 99
[2022-02-06 20:37] LABS: POC Glucose,Bedside 147 (70-110)
[2022-02-07 04:00] VITALS: BP 112/58; PULSE 97; RESP 18; TEMP 36.7; O2SAT 97
[2022-02-07 05:00] VITALS: BMI 18.2
--- NOTE | 2022-02-07 07:33 | PC.NURSE ---
Pt has c/o abdominal pain multiple times t/o shift. MD web applications administrator notified. Md orders one time dose IV Morphine x2. Pt states favorable results. Catheter draining reddish/pink urine with dark clots and sediment present. Call light within reach
[2022-02-07 07:50] VITALS: BP 97/55; PULSE 90; RESP 16; TEMP 36.7; O2SAT 99
[2022-02-07 08:21] LABS: Basophils % 0.4 % (0.1-2.0); Eosinophils # 0.2 K/mm3 (0.0-0.4); Eosinophils % 4.6 % (0.1-12.0); Hemoglobin 7.1 g/dL (14.1-18.0); Lymphocytes % 23.1 % (10-50); Mean Corpuscular HGB Conc 33.8 g/dL (31.8-35.4); Mean Corpuscular Hemoglobin 30.4 pg (27.0-31.2); Mean Platelet Volume 6.9 fl (7.4-10.4); Monocytes # 0.2 K/mm3 (0.1-1.0); Monocytes % 4.8 % (1.7-9.3); Neutrophils % 67.1 % (37.0-80.0); Platelet Count 121 K/mm3 (142-424); Red Blood Count 2.33 M/mm3 (4.60-6.20); Red Cell Distribution Width 15.6 % (11.5-17.5); White Blood Count 4.5 K/mm3 (4.8-10.8)
[2022-02-07 08:33] LABS: Anion Gap 8.8 mEq/L (5-15); Blood Urea Nitrogen 34 mg/dl (9-20); Calcium 6.9 mg/dl (8.4-10.2); Carbon Dioxide 15 mmol/L (22.0-30.0); Chloride 116 mmol/L (98-107); Creatinine Clearance Estimated 33 mL/min (50-200); Estimated Glomerular Filt Rate 29 ml/min (>60); GFR (African American) 35 ML/MIN (>60); Glucose 87 mg/dl (74-100); Potassium 4.8 mmoL/L (3.5-5.1); Sodium 135 mmol/L (136-145)
--- NOTE | 2022-02-07 10:10 | DIET.NUTRFU ---
Rounded with provider today, observed breakfast tray ate 75%. Intake seemed to be improving and he seems more alert and ready to discharge. Requesting pain meds. He is not drinking the glucerna, building up on bedside table- will discontinue.
--- NOTE | 2022-02-07 11:52 | HMH.DCSUM ---
General - General Admission date:: 02/02/22 Discharge date: 02/07/22 HPI HPI: Pt c/o weakness, abdominal pain and headache for prior two days. Also is c/o blood coming from his urostomy. States that he has been bleeding from his urostomy for the prior two days as well. Denies fever, nausa, vomiting or diarrhea. Does c/o dimjinished appetite. Temperature 95.3 rectally, heart rate 97, creatinine 3.7, and diagnosis of urinary tract infection Hospital Course Hospital Course: Pt c/o weakness, abdominal pain and headache for prior two days. Also is c/o blood coming from his urostomy. States that he has been bleeding from his urostomy for the prior two days as well. Denies fever, nausa, vomiting or diarrhea. Does c/o dimjinished appetite. Temperature 95.3 rectally, heart rate 97, creatinine 3.7, and diagnosis of urinary tract infection Hemoglobin 7.1 patient received 2 units packed red blood cells, hemoglobin increased to 8.6 Patient was scheduled for EGD and colonoscopy last year and refused He did receive multiple doses of ceftriaxone IV, as well as IV fluids during his stay Blood cultures x4 negative at 48 hours UA #1 revealed E. coli UA #2 preliminary gram-negative rods He will be discharged on Omnicef 300 mg twice daily for 7 days Several discussions with patient with need to follow-up with urology and GI for colonoscopy and EGD. Discussed lifestyle changes patient verbalizes understanding and states he will think about it. 46-year-old male patient resting in bed quietly with eyes open. Discussed need to transition to p.o. pain meds, patient is demanding IV pain medication with states he will leave. Possible medical complications discussed with patient, he verbalized understanding. Explained to patient staff will come in the room and he will be sleeping and in no apparent distress. Also discussed with patient need to see staff urologist, he verbalizes understanding and states he is leaving today. Discussed need to change suprapubic catheter, patient denies but will allow changing collection system. Urine today is darker yellow with no clots. Possible medical outcomes explained to patient including loss of blood, increasing infection, possible sepsis, decubiti, and possible . Patient states he is leaving hospital now to never return, also states he lives in [place] and will find a new primary care physician. Attempted to discuss patient's concerns, patient states just leave me alone I am leaving . PLAN: 1. Patient Objective Vital signs: Temp Pulse Resp BP Pulse Ox 98.1 F 90 16 97/55 L 99 02/07/22 07:50 02/07/22 07:50 02/07/22 07:50 02/07/22 07:50 02/07/22 07:50 thin, cachectic, chronically ill appearing - *Routine HEENT Exam Head: Present: normocephalic Eye: Present: EOMI ENT: Present: mucous membranes moist - *Routine Neck Exam Present: trachea midline. Absent: tracheal deviation - *Routine Respiratory Exam Present: decreased breath sounds. Absent: accessory muscle use - *Routine Cardiovascular Exam Present: RRR - *Routine Abdominal Exam Present: soft, normoactive bowel sounds. Absent: tenderness, firm - *Routine Exam Comments: Suprapubic catheter - *Routine Extremities Exam Present: pulses intact. Absent: cyanosis, clubbing, edema, full ROM - *Routine Skin Exam Present: intact, dry. Absent: cyanosis, erythema - *Routine Neurological Exam Present: alert, oriented X3 - Routine Psychiatric Exam Present: normal affect, normal thought process. Absent: visual hallucinations Results Labs on day of discharge: Labs from last 24 hours 02/07/22 02/07/22 02/06/22 08:12 08:12 20:27 WBC 4.5 L RBC 2.33 L Hgb 7.1 L Hct 21.0 L MCV 90.0 MCH 30.4 MCHC 33.8 RDW 15.6 Plt Count 121 L MPV 6.9 L Neut % (Auto) 67.1 Lymph % (Auto) 23.1 [place] % (Auto) 4.8 Eo
--- NOTE | 2022-02-07 12:48 | PC.NURSE ---
Patient was told he was not going to get anymore pain medication from Dr. Carmona. Patient was fustrated and wanted to leave. Dr. Carmona and Alin Carrasco stated to patient that they would discharge him after urology had been consulted and seen patient for any further recommendations. Patient stated he was still leaving and wanted his IV removed. Patient counseled about risks of leaving AMA but he still wanted to leave. Patient refused to sign AMA paper, paper signed by primary nurse and witness.
--- NOTE | 2022-02-08 15:06 | CARE MANAGER ---
Contacted patient related to follow up from hospital discharge. Patient left AMA. He states he can barely walk and is swollen. Encouraged patient to go to doctor and he states he isn't going back to that group. I offered to help locate a new physician and patient refused. He states he's not worried about it. ESCOBAR Villegas
== END 2022-02-07 11:52 | disposition left against medical advice (07) | DRG 683 ==
LOC: ER 02:50 → 2ND 06:10
PROVIDERS: Internal Medicine Adolescent Medicine; Nurse Practitioner Family; Admitting Provider Emergency Medicine; Emergency Provider Emergency Medicine; PCP Family Medicine; Visit Provider Family Medicine
DX: N17.9 Acute kidney failure, unspecified (principal); N30.00 Acute cystitis without hematuria; E46 Unspecified protein-calorie malnutrition; Z68.1 Body mass index [BMI] 19.9 or less, adult; M87.059 Idiopathic aseptic necrosis of unspecified femur; A49.1 Streptococcal infection, unspecified site; R31.9 Hematuria, unspecified; Z93.6 Other artificial openings of urinary tract status; Z79.4 Long term (current) use of insulin; F41.9 Anxiety disorder, unspecified; F32.A Depression, unspecified; F17.290 Nicotine dependence, other tobacco product, uncomplicated; D64.89 Other specified anemias; B96.20 Unspecified Escherichia coli [E. coli] as the cause of diseases classified elsewhere
CPT/HCPCS: 36415; 71045; 74176; 80048; 81001; 82150; 82962; 83605; 83690; 83735; 84145; 84484; 85014; 85018; 85025; 85651; 86140; 86850; 87040; 87086; 87088; 87186; 99285; C9803; J0696; J1956; J2405; P9016; U0003; U0005

== ENCOUNTER → 2022-09-19 23:55 | Outpatient (CLI) | payer MEDICAID, SELFPAY ==
[2022-09-19 16:13] LABS: Basophils % 0.8 % (0.1-2.0); Eosinophils # 0.1 K/mm3 (0.0-0.4); Eosinophils % 2.1 % (0.1-12.0); Hematocrit 26.9 % (42.0-52.0); Hemoglobin 8.6 g/dL (14.1-18.0); Lymphocytes # 1.1 K/mm3 (0.7-4.5); Mean Corpuscular Volume 93.8 fl (80-94); Mean Platelet Volume 8.2 fl (7.4-10.4); Monocytes # 0.2 K/mm3 (0.1-1.0); Monocytes % 4.6 % (1.7-9.3); Neutrophils # 2.6 K/mm3 (1.8-7.8); Neutrophils % 65.5 % (37.0-80.0); Platelet Count 292 K/mm3 (142-424); Red Blood Count 2.87 M/mm3 (4.60-6.20); White Blood Count 3.9 K/mm3 (4.8-10.8)
[2022-09-19 19:21] LABS: Anion Gap 9.2 mEq/L (5-15); Blood Urea Nitrogen 40 mg/dl (9-20); Calcium 7.1 mg/dl (8.4-10.2); Carbon Dioxide 31 mmol/L (22.0-30.0); Chloride 100 mmol/L (98-107); Estimated Glomerular Filt Rate 19 ml/min (>60); GFR (African American) 23 ML/MIN (>60); Glucose 99 mg/dl (74-100); Potassium 4.2 mmoL/L (3.5-5.1); Sodium 136 mmol/L (136-145)
== END ==
PROVIDERS: PCP Family Medicine; Visit Provider Family Medicine
DX: R53.83 Other fatigue (principal)
CPT/HCPCS: 80048; 85025

== ENCOUNTER 2022-10-10 11:43 | Emergency (ER) | payer MEDICAID, SELFPAY ==
[2022-10-10] VITALS (24 sets, daily range): BP systolic 117–165; BP diastolic 82–99; PULSE 67–80; RESP 12–20; TEMP 34.7–36.6; O2SAT 98–100; BMI 13.5
--- NOTE | 2022-10-10 12:15 | PC.NURSE ---
MAURICIO MONTOYA at
--- NOTE | 2022-10-10 12:19 | CT_ITS ---
FINAL REPORT TECHNIQUE: Axial CT images were performed from the lung bases through the pubic symphysis. Coronal reformats were submitted and reviewed. This study was performed with techniques to keep radiation doses as low as reasonably achievable (ALARA). Individualized dose reduction techniques using automated exposure control or adjustment of mA and/or kV according to the patient's size were employed. CLINICAL HISTORY: hematuria, R sided back pain COMPARISON: January 2022 FINDINGS: Abdomen: There are bibasilar opacities worrisome for pneumonia. There is left lung base atelectasis. There is a small left pleural effusion. There is a paucity of intra-abdominal and intrapelvic fat which limits overall evaluation. There are diffuse pancreatic calcifications consistent with chronic pancreatitis. The liver and spleen are grossly unremarkable. There are no adrenal masses. There is no nephrolithiasis. There is no hydronephrosis. There is severe diffuse vascular calcification. A moderate large amount of stool is present. Pelvis: The appendix is not identified. There are no distal ureteral stones. The urinary bladder is unremarkable. Note is made of a suprapubic catheter. IMPRESSION: Exam limited by patient condition. Moderate to large amount of retained stool. Reviewed, Interpreted and Dictated by Philippe Rosenbaum III, MD Transcribed by Winston Holm Authenticated and [facility]
[2022-10-10 12:20] LABS: Basophils % 0.1 % (0.1-2.0); Eosinophils # 0.1 K/mm3 (0.0-0.4); Eosinophils % 0.4 % (0.1-12.0); Lymphocytes % 6.5 % (10-50); Mean Corpuscular HGB Conc 33.9 g/dL (31.8-35.4); Mean Corpuscular Hemoglobin 31.4 pg (27.0-31.2); Mean Corpuscular Volume 92.6 fl (80-94); Mean Platelet Volume 8.5 fl (7.4-10.4); Monocytes # 0.2 K/mm3 (0.1-1.0); Monocytes % 1.6 % (1.7-9.3); Neutrophils # 13.8 K/mm3 (1.8-7.8); Neutrophils % 91.5 % (37.0-80.0); Platelet Count 90 K/mm3 (142-424); Red Blood Count 1.81 M/mm3 (4.60-6.20)
--- NOTE | 2022-10-10 12:21 | XR_ITS ---
FINAL REPORT CLINICAL HISTORY: weakness COMPARISON: January 2022 FINDINGS: The heart size is normal. The mediastinum is within normal limits. Opacity in the left upper thorax of uncertain etiology appears worse. There is no pneumothorax. The bony thorax is intact. IMPRESSION: Left upper thorax opacity of uncertain etiology could represent pleural thickening, loculated fluid, or mass. This could be further evaluated with chest CT. Reviewed, Interpreted and Dictated by Philippe Rosenbaum III, MD Transcribed by Winston Holm Authenticated and . [facility]
--- NOTE | 2022-10-10 12:21 | HMH.EDGENADL ---
Discharge Plan Disposition Patient Disposition: Xfer Short-Term Hosp Condition: Serious Prescriptions Prescriptions: No Action hydrocodone-acetaminophen 5-325 mg tablet 1 tab PO DAILY PRN (Reason: pain) Qty: 30 0RF fluoxetine 20 mg capsule 20 mg PO DAILY Qty: 90 3RF gabapentin 800 mg tablet 800 mg PO TID Qty: 90 5RF dulaglutide 0.75 mg/0.5 mL pen injector 0.75 mg SQ WEEKLY Qty: 2 10RF Rx Instructions: INJECT 0.75 MG (0.5 ML) SUB-Q WEEKLY insulin glargine 100 unit/mL (3 mL) insulin pen 15 unit SQ HS Qty: 15 10RF lisinopril 2.5 mg tablet 2.5 mg PO DAILY Qty: 90 3RF omeprazole 40 mg capsule,delayed release(DR/EC) 40 mg PO DAILY Qty: 90 3RF furosemide [Lasix] 20 mg tablet 20 mg PO Q OTHER DAY PRN (Reason: edema) Qty: 15 3RF insulin lispro [Humalog U-100 Insulin] 100 unit/mL solution See Rx Instructions .ROUTE .COMPLEX Qty: 10 10RF Dose Instruction: INJECT 8 UNITS SUBCUTANEOUSLY 3 TIMES A DAY Rx Instructions: INJECT 8 UNITS SUBCUTANEOUSLY 3 TIMES A DAY (DME) lancets [Easy Touch Twist Lancets] 30 gauge misc See Rx Instructions .Route Qty: 100 2RF Rx Instructions: Check sugar 4 times daily or As directed (DME) insulin syringe-needle U-100 [BD Insulin Syringe Ultra-Fine] 0.5 mL 31 gauge x 5/16 syringe See Rx Instructions .Route Qty: 100 2RF Rx Instructions: Use 4 times daily or As directed Referrals Follow up/Referrals: Ethan Beltran MD [Primary Care Provider] - See instructions Clinical Impressions Clinical Impression: Anemia, Hematuria, Acute UTI, Cachexia, Chronic kidney disease Instructions Patient Instructions: DI for Urinary Tract Infection (UTI), DI for Urinary Tract Infection in Children Discharge ED Provider: Juan Mckeon General Adult HPI General Chief complaint: Urogenital-Male Stated complaint: blood in urine Time Seen by Provider: 10/10/22 12:10 Mode of Arrival: Carried Source of Information: Patient Limitations: Physical Limitations Description of Symptoms (Recalled from ER Triage Doc. by RN): Pt c/o my kidneys are bleeding and approx 3wk s/p left foot sx procedure at . ; friend reports concerns for self-care deficit and substance abuse History of Present Illness HPI narrative: Patient has several complaints. He is brought in by a friend from his residence in [place]. He says that he had an appointment with his primary care provider Dr. Beltran, later this afternoon but did not feel he could wait until his appointment and therefore had his friend bring him to the emergency department. He complains that his kidneys are bleeding . He has a suprapubic catheter which she says he has had since 2020 and has blood coming from the catheter. He also feels generally weak. He has some low back pain, predominantly on the right side. Friend also reports possibility of alcohol and drug use. Reports that there was a belt and syringe at the patient's residence. He has not noted prior history of substance abuse. Related Data Previous Rx's Medication Instructions Recorded dulaglutide 0.75 mg/0.5 mL 0.75 mg (0.5 mL) SQ WEEKLY 03/20/22 subcutaneous pen injector Diabetes #2 mL furosemide 20 mg tablet (Lasix) 20 mg PO Q OTHER DAY PRN edema #15 03/20/22 tabs insulin glargine 100 unit/mL (3 15 unit (0.15 mL) SQ HS Diabetes 03/20/22 mL) subcutaneous pen #15 mL lisinopril 2.5 mg tablet 2.5 mg PO DAILY Hypertension #90 03/20/22 tabs omeprazole 40 mg capsule,delayed 40 mg PO DAILY GERD #90 caps 03/20/22 release insulin lispro 100 unit/mL See Rx Instructions .Route 03/24/22 subcutaneous solution (Humalog .COMPLEX #10 mL U-100 Insulin) lancets 30 gauge (Easy Touch Twist #100 ea 04/28/22 Lancets) insulin syringe-needle U-100 0.5 #100 ea 09/06/22 mL 31 gauge x 5/16 (BD Insulin Syringe Ultra-Fine) fluoxetine 20 mg capsule 20 mg PO DAILY Depression #90 caps 09/19/22 gabapentin 800 mg tablet 800 mg PO TID NEURO
[2022-10-10 12:23] LABS: Hematocrit 16.8 % (42.0-52.0); MANUAL DIFFERENTIAL MANUAL DIFFERENTIAL (MANUAL DIFF)
--- NOTE | 2022-10-10 12:23 | PC.NURSE ---
lab called with critical hemaglobin and hematocrit, relayed results to MAURICIO MONTOYA
[2022-10-10 12:28] LABS: Alanine Aminotransferase 29 U/L (12-78); Albumin Level 2.8 g/dl (3.5-5.0); Albumin/Globulin Ratio 1.2 (1.1-1.8); Alkaline Phosphatase 37 U/L (38-126); Anion Gap 14.4 mEq/L (5-15); Aspartate Amino Transferase 35 U/L (17-59); Bilirubin,Total 0.6 mg/dl (0.2-1.3); Blood Urea Nitrogen 73 mg/dl (9-20); Calcium 6.5 mg/dl (8.4-10.2); Carbon Dioxide 18 mmol/L (22.0-30.0); Chloride 106 mmol/L (98-107); Creatinine Clearance Estimated 19 mL/min (50-200); Estimated Glomerular Filt Rate 22 ml/min (>60); GFR (African American) 27 ML/MIN (>60); Globulin 2.4 g/dL (1.3-3.2); Glucose 246 mg/dl (74-100); Magnesium 2.2 mg/dl (1.6-2.3); Phosphorous 9.8 mg/dl (2.5-4.5); Potassium 4.4 mmoL/L (3.5-5.1); Sodium 134 mmol/L (136-145); Total Protein,Serum 5.2 g/dl (6.3-8.2)
[2022-10-10 12:31] LABS: Lactic Acid 2.3 mmol/L (0.7-2.1)
[2022-10-10 12:34] LABS: C-Reactive Protein 73.4 mg/L (0-4)
[2022-10-10 12:35] LABS: Occult Blood,Stool Negative (Negative)
[2022-10-10 12:39] LABS: Activated Partial Thrombo Time 27.9 seconds (22.8-30.6); Prothrombin Time 12.8 seconds (10.1-12.5)
[2022-10-10 12:41] LABS: Ethyl Alcohol < 10 mg/dl (0-10)
[2022-10-10 12:45] LABS: Hypochromasia 1+; Lymphocytes % 5 % (10-50); Monocytes % 1 % (2-9); Neutrophils % 94 % (42-76); Total Cells Counted 100
[2022-10-10 12:46] LABS: Platelet Estimate Moderate Decrease
[2022-10-10 12:49] LABS: Troponin I < 0.01 ng/ml (0.00-0.034)
--- NOTE | 2022-10-10 12:58 | ECG_ITS ---
APPROVED REPORT Exam: Resting ECG HR:73 bpm ECG Measurements Heart Rate 73 AXES OK 140 P 95 QRSd 97 QRS 98 QT 442 T 91 QTc 468 Conclusion SINUS RHYTHM LATERAL MYOCARDIAL INFARCTION , OF INDETERMINATE AGE [40+ ms Q WAVE AND/OR ST/T ABNORMALITY IN I/aVL/V5/V6] ABNORMAL ECG UNCONFIRMED REPORT Electronically signed by : Basilio Faye MD 10/10/2022 19:15:28
[2022-10-10 13:39] LABS: Hemoglobin 5.7 g/dL (14.1-18.0)
[2022-10-10 13:46] LABS: Microscopic, Urine URINE MICROSCOPIC (MICROSCOPIC)
[2022-10-10 13:51] LABS: Erythrocyte Sedimentation Rate > 140 mm/hr (0-15)
[2022-10-10 14:06] LABS: Coronavirus 19, PCR Not Detected (NotDetected); Influenza A, PCR Not Detected (NotDetected); Influenza B, PCR Not Detected (NotDetected)
--- NOTE | 2022-10-10 14:07 | PC.NURSE ---
contacted rad to check on status of CT results, states no results back at this time, spoke with ligia
[2022-10-10 14:08] LABS: Appearance,Urine TURBID (Clear); Bilirubin,Urine Negative (Negative); Blood, Urine 3+ (Negative); Color,Urine RED (Yellow); Glucose,Urine (UA) Negative (Negative); Ketones,Urine Negative (Negative); Leukocyte Esterase,Urine 1+ (Negative); Nitrate,Urine POSITIVE (Negative); PH,Urine 8.5 (5.0-8.5); Protein,Urine 3+ (Negative); Specific Gravity, Urine 1.015 (1.005-1.030)
[2022-10-10 14:12] LABS: Bacteria,Urine 1+ /lpf; RBC,Urine TNTC #/hpf (0-3); Squamous Epithelial Cell,Urine Occasional #/hpf (0-5); WBC,Urine Occasional #/hpf (0-3)
[2022-10-10 14:19] LABS: Opiate Screen,Urine Negative ng/ml (<300); Phencyclidine Screen,Urine Negative ng/ml (<25)
[2022-10-10 14:21] LABS: Amphetamine/Metha Screen,Urine Positive ng/ml (<1000); Barbiturates Screen,Urine Negative ng/ml (<200)
[2022-10-10 14:22] LABS: Benzodiazepines Screen,Urine Negative ng/ml (<200)
[2022-10-10 14:24] LABS: Cannabinoid Screen,Urine Negative ng/ml (<50)
[2022-10-10 14:25] LABS: Cocaine Screen,Urine Negative ng/ml (<300); Methadone Screen,Urine Negative ng/ml (<300)
--- NOTE | 2022-10-10 14:30 | PC.NURSE ---
MAURICIO MONTOYA spoke with dr. millan
--- NOTE | 2022-10-10 14:35 | CT_ITS ---
FINAL REPORT TECHNIQUE: Axial images were obtained from the lung apex to the mid abdomen by computed tomography. Coronal reformatted images were obtained. This study was performed with techniques to keep radiation doses as low as reasonably achievable, (ALARA). Individualized dose reduction techniques using automated exposure control or adjustment of mA and/or kV according to the patient''s size were employed. CLINICAL HISTORY: possible mass on cxr FINDINGS: The esophagus is distended and air and fluid filled which is nonspecific, could be due to reflux or distal stricture. There is no axillary adenopathy. There is no hilar or mediastinal adenopathy. Heart size is normal. There is no pericardial effusion. Left pleural effusion is identified. Limited images of the upper abdomen are unremarkable. There are bilateral lower lobe opacities, left greater than right worrisome for pneumonia. There is left lower lobe atelectasis. No pulmonary or chest wall mass is identified. There is diffuse vascular calcification. IMPRESSION: No pulmonary or chest wall mass identified. Bilateral lower lobe opacities worrisome for pneumonia with small left pleural effusion. Abnormal appearance of the esophagus which could be due to reflux or distal stricture. Reviewed, Interpreted and Dictated by Philippe Rosenbaum III, MD Transcribed by Santa Loredo Authenticated and [facility]
--- NOTE | 2022-10-10 14:35 | PC.NURSE ---
Contacting [facility] for possible pt transfer
--- NOTE | 2022-10-10 14:42 | PC.NURSE ---
Pt's urologist is Dr. Clayton Gallagher with [facility]
--- NOTE | 2022-10-10 14:47 | PC.NURSE ---
Pt placed on [facility] wait-list at this time. Contacting [facility] for possible transfer
--- NOTE | 2022-10-10 14:50 | PC.NURSE ---
attempted twice to get second IV access on this patient. unsuccessful at this time
--- NOTE | 2022-10-10 14:51 | PC.NURSE ---
MAURICIO MONTOYA speaking with [facility]
--- NOTE | 2022-10-10 14:58 | PC.NURSE ---
[facility] reports they are on a 2-3 week wait for beds.
--- NOTE | 2022-10-10 15:03 | PC.NURSE ---
Contacting [facility] for possible transfer
--- NOTE | 2022-10-10 15:05 | PC.NURSE ---
Returned from CT to 1
--- NOTE | 2022-10-10 15:43 | PC.NURSE ---
[facility]
--- NOTE | 2022-10-10 15:44 | PC.NURSE ---
pt requesting food, okayed per ER , contacted dietary for a soft tray for pt.
--- NOTE | 2022-10-10 16:07 | PC.NURSE ---
pt sitting up in the bed eating at this time. Pt was repositioned in the bed by myself, and Rickey Laws RN. He reports he does not need any assist with eating.
[2022-10-10 16:16] LABS: Reflex Lactic Add Lactic Reflex
--- NOTE | 2022-10-10 16:16 | PC.NURSE ---
MAURICIO MONTOYA speaking with Dr. Hernandez at [place]
--- NOTE | 2022-10-10 16:18 | PC.NURSE ---
preliminary ct result given to MAURICIO MONTOYA
--- NOTE | 2022-10-10 16:19 | PC.NURSE ---
Spoke with Isabella at [facility] to let them know that patient will be going to [place] now.
--- NOTE | 2022-10-10 16:21 | PC.NURSE ---
Ledy spoke with Radiology to burn a disc
--- NOTE | 2022-10-10 16:22 | PC.NURSE ---
notified pharmacy of vancomycin consult. spoke with stephanie
--- NOTE | 2022-10-10 16:28 | PC.NURSE ---
contacted lab to verify they have received blood cultures x2 on pt. Pinky in lab states they only have 1 set of blood cultures in lab on pt. States she is having lab staff come down to collect repeat lactic acid, will have lab staff collect 2nd set of blood cultures as well and then will hand antibiotics as ordered on t.
--- NOTE | 2022-10-10 16:52 | PC.NURSE ---
spoke with patient logistics at [place], bed assignment received. Accepted to [facility], unit [address] , bed 442, states bed is ready. Number for report is [phone]
--- NOTE | 2022-10-10 17:03 | PC.NURSE ---
notified [facility] of need for transport of pt, stated we will notify them when when pt is ready for transport
[2022-10-10 17:10] LABS: Lactic Acid Follow Up (RFLX 1) 2.1 mmol/L (0.7-2.1)
--- NOTE | 2022-10-10 17:15 | PC.NURSE ---
Report called to [facility] unit [address], room 442 accepting report ESCOBAR Barnhart on patient presentation today, evaluation, findings, and plan of care. No further questions at this time.
--- NOTE | 2022-10-10 17:27 | PC.NURSE ---
[facility] notified pt is ready for transport to [facility]
--- NOTE | 2022-10-10 18:28 | PC.NURSE ---
pt clothes placed in belongings bags x2, pt name stickers placed on outside of bags. Pt had a campos ring attached to his belt loop of his pants, reminded pt keys were on those pants and I was placing them in belongings bags. Pt has wallet on his person.
--- NOTE | 2022-10-10 18:37 | PC.NURSE ---
[facility] here for pt transport
--- NOTE | 2022-10-10 18:40 | PC.NURSE ---
report given to ngoc pearce
[2022-10-10 19:03] LABS: Reflex Lactic (2 hrs) Add Lactic Reflex
== END 2022-10-10 18:45 | disposition short-term general hospital (02) ==
PROVIDERS: Emergency Provider Emergency Medicine; PCP Family Medicine
DX: N39.0 Urinary tract infection, site not specified (principal); D64.9 Anemia, unspecified; R31.9 Hematuria, unspecified; N18.9 Chronic kidney disease, unspecified; R64 Cachexia; E11.40 Type 2 diabetes mellitus with diabetic neuropathy, unspecified; R33.9 Retention of urine, unspecified; Z20.822 Contact with and (suspected) exposure to COVID-19
CPT/HCPCS: 36415; 71045; 71250; 74176; 80053; 80305; 81001; 82272; 83605; 83735; 84100; 84484; 85007; 85025; 85610; 85651; 85730; 86140; 86850; 87040; 87077; 87086; 87088; 87186; 93005; 96374; 96375; 99285; C9803; G0328; J1956; J3370; P9016; U0003; U0005